=== PATIENT | female | born 1995 | race Caucasian/White ===

== ENCOUNTER 2022-08-17 07:30 | Outpatient (CLI) | payer OTHER, SELFPAY ==
[2022-08-17 07:56] LABS: Basophils Percent Auto 0.7 % (0.2-1.2); Eosinophils Absolute Auto 0.1 K/mm3 (0-0.3); Eosinophils Percent Auto 1.6 % (0-4.4); Hematocrit 39.8 % (37.0-47.0); Hemoglobin 13.3 g/dL (12.0-15.0); Immature Granulocyte Absolute 0.01 K/mm3 (0.00-0.031); Immature Granulocyte Percent A 0.2 % (0-0.5); Lymphocytes Absolute Auto 2.21 K/mm3 (0.9-3.2); Lymphocytes Percent Auto 39.9 % (18.3-44.2); Mean Corpuscular HGB Conc 33.4 g/dl (32-36); Mean Corpuscular Hemoglobin 30.2 pg (26-34); Mean Corpuscular Volume 90.2 fl (80-100); Mean Platelet Volume 9.4 fl (7.4-10.4); Monocytes Absolute Auto 0.4 K/mm3 (0.1-0.6); Monocytes Percent Auto 7.2 % (2.6-8.5); Neutrophils Absolute Auto 2.8 K/mm3 (1.3-6.7); Neutrophils Percent Auto 50.4 % (45.5-73.1); Platelet Count Result 179 k/mm3 (150-375); Red Blood Count 4.41 M/mm3 (4.2-5.4); Red Cell Distribution Width 12.1 % (11.5-14.5); White Blood Count 5.5 K/mm3 (4.5-10.0)
[2022-08-17 08:27] LABS: Cholesterol 163 mg/dL (0-200); HDL Direct 51 mg/dL; Triglycerides 70 mg/dL (<150)
[2022-08-17 08:38] LABS: LDL Cholesterol Direct 87 mg/dL
[2022-08-17 08:40] LABS: Beta HCG Quantitative < 2.39 mIU/ML
[2022-08-17 09:00] LABS: Vitamin D 25 Hydroxy 37.4 ng/mL
[2022-08-17 09:09] LABS: Hemoglobin A1C 4.8 % (<5.7)
[2022-08-17 09:30] LABS: Folic Acid 8.1 ng/mL (2.76->20)
== END 2022-08-17 07:31 | disposition home or self-care (01) ==
PROVIDERS: Visit Provider Obstetrics & Gynecology
DX: N92.0 Excessive and frequent menstruation with regular cycle (principal); Z83.3 Family history of diabetes mellitus; R53.83 Other fatigue
CPT/HCPCS: 36415; 80061; 82306; 82607; 82746; 83036; 84702; 85025

== ENCOUNTER 2022-12-29 07:03 | Outpatient (CLI) | payer OTHER, SELFPAY ==
[2023-01-01 15:26] LABS: Hematocrit 43.6 % (35.0-45.0); Hemoglobin 13.8 g/dL (11.7-15.5); MCH 29.9 pg (27.0-33.0); MCV 94.4 fL (80.0-100.0); RDW 12.2 % (11.0-15.0); Red Blood Cell Count 4.62 Mill/uL (3.80-5.10)
[2023-01-14 12:11] LABS: CF Result NEGATIVE (NEGATIVE); Ethnicity NG; SMA 2.0 RISK VARIANT NOT DETECTED
[2023-01-16 15:56] LABS: SMA Results Received Yes
== END 2022-12-29 07:04 | disposition home or self-care (01) ==
LOC: ANHLAB 07:05
PROVIDERS: Visit Provider Obstetrics & Gynecology
DX: Z13.79 Encounter for other screening for genetic and chromosomal anomalies (principal)
CPT/HCPCS: 36415; 81220; 81243; 81329; 83021

== ENCOUNTER 2023-12-21 08:02 | Outpatient (CLI) | payer OTHER, SELFPAY ==
[2023-12-21 08:39] LABS: Basophils Percent Auto 0.6 % (0.2-1.2); Eosinophils Absolute Auto 0.1 K/mm3 (0-0.3); Eosinophils Percent Auto 0.7 % (0-4.4); Hematocrit 37.8 % (37.0-47.0); Hemoglobin 13.1 g/dL (12.0-15.0); Immature Granulocyte Absolute 0.02 K/mm3 (0.00-0.031); Immature Granulocyte Percent A 0.3 % (0-0.5); Lymphocytes Absolute Auto 1.87 K/mm3 (0.9-3.2); Mean Corpuscular HGB Conc 34.7 g/dl (32-36); Mean Corpuscular Hemoglobin 30.4 pg (26-34); Mean Corpuscular Volume 87.7 fl (80-100); Monocytes Absolute Auto 0.5 K/mm3 (0.1-0.6); Monocytes Percent Auto 6.6 % (2.6-8.5); Neutrophils Absolute Auto 4.5 K/mm3 (1.3-6.7); Neutrophils Percent Auto 64.8 % (45.5-73.1); Platelet Count Result 171 k/mm3 (150-375); Red Blood Count 4.31 M/mm3 (4.2-5.4); Red Cell Distribution Width 11.6 % (11.5-14.5); White Blood Count 6.9 K/mm3 (4.5-10.0)
[2023-12-21 09:28] LABS: HIV 1/2 Ab P24 Ag Result Negative (Negative)
[2023-12-21 10:23] LABS: Hepatitis B Surface Antigen Negative (Negative); Rubella IgG Antibody 35.3 IU/ML
[2023-12-23 14:53] LABS: CMV IgG Antibody <0.60 U/mL; Varicella IgG Antibody 5.94 S/CO
== END 2023-12-21 08:03 | disposition home or self-care (01) ==
LOC: ANHLAB 08:07
PROVIDERS: Visit Provider Obstetrics & Gynecology
DX: N91.2 Amenorrhea, unspecified (principal)
CPT/HCPCS: 36415; 84702; 85025; 86644; 86703; 86747; 86762; 86787; 86850; 86900; 86901; 87086; 87340; G0432

== ENCOUNTER 2023-12-23 15:57 | Outpatient (CLI) | payer OTHER, SELFPAY | END 2023-12-23 15:58 | disposition home or self-care (01) | LOC: ANHLAB 15:58 | PROVIDERS: Visit Provider Obstetrics & Gynecology | DX: N39.0 Urinary tract infection, site not specified (principal) | CPT/HCPCS: 87086 ==

== ENCOUNTER 2024-01-16 08:53 | Outpatient (CLI) | payer OTHER, SELFPAY ==
--- NOTE | ~2024-01-16 | US_ITS ---
EXAMINATION: US OB <= 14 weeks fetus DATE: 01/16/2024 09:35 INDICATION: Missed . TECHNIQUE: Real-time transabdominal pelvic ultrasound was performed. COMPARISON: Ultrasound 12/25/2023 FINDINGS: The uterus measures 10.2 x 6.5 x 7.7 cm. There is an intrauterine gestational sac. The crown ru mp length measures 3.4 cm, which correlates with an estimated gestational age of 10 weeks and 2 days. heart motion is not identified by M-mode Doppler. The ovaries are not visualized. There is phy siologic free fluid in the pelvis. IMPRESSION: 1. demise. Reviewed, dictated and finalized at location A. ONAL EDUCATION COORDINATOR IMPRESSION: 1. demise.
== END 2024-01-16 08:54 | disposition home or self-care (01) ==
PROVIDERS: Visit Provider Obstetrics & Gynecology
DX: O02.1 Missed abortion (principal)
CPT/HCPCS: 76801

== ENCOUNTER 2024-01-17 01:32 | Day surgery (SDC) | payer OTHER, SELFPAY ==
--- NOTE | 2024-01-16 13:29 | P.HP_ITS ---
H&P: HPI History of Present Illness Date/Time: 01/16/24 13:29 Chief Complaint: MAB Narrative: Xiomara is a 28yo , who presents for suction D&C due for demise. She presented to her routine care visit on 01/15/24. She did report a sudden resolution of her severe nausea and vomiting. She denies any pelvic pain or bleeding. heart tones were not heard on bedside doppler. Bedside US was performed and no movement or heart tones were noted. Formal OB US on 01/16/24 confirmed demise. The fetus was measuring 10w 2d (should have been 13w today). She denies pain/bleeding. No fever, chills. She is understandably very upset. Review of Systems Constitutional: Constitutional: Denies chills, Denies fever(s) and Denies headache(s) Eyes: Eyes: Denies change in vision ENT: Denies dizziness and Denies headache(s) Cardiovascular: Cardiovascular: Denies chest pain and Denies dyspnea Respiratory: Respiratory: Denies cough and Denies dyspnea Gastrointestinal: Gastrointestinal: Denies abdominal pain and Denies change in stool character Genitourinary: Genitourinary: Denies abnormal vaginal bleeding, Denies pelvic pain, Denies vaginal discharge, Denies vaginal odor and Denies vaginal pruritus Neurologic: Denies dizziness and Denies headache(s) Psychiatric: Psychiatric: Denies anxiety and Denies depression [facility] Past Medical History Medical History Mar 30 2021 Surgical History Surgical History History of gynecological procedure Nexplanon insertion removed 9 months later History of surgery on arm Family History Family History Grandparent Pancreatic cancer maternal Grandmother and maternal grandfather Father Hypertension Mother Diabetes mellitus Depression Social History Social History (Updated 01/15/24 @ 15:54 by Khris Mccollum MA) Smoking status: Never smoker Second hand tobacco smoke exposure: Yes Alcohol intake: former Alcohol use details: socially 15 per month Substance use: never Substance use type: does not use Do You Feel Safe in your Home?: Yes Lack of Transportation: No Lack of Food: Never True Current Housing: I Have Housing Concerned About Future Housing: No Difficulty Paying Gas/Electric Bills: No Difficulty Paying for Meds: No Currently Unemployed: No Education: Master's Degree or Higher Difficulty w/ Childcare or Family Care: No Living arrangements: with family Additional living arrangements comments: 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 Gender identity (if verbalized by the patient): Female Sexual Orientation (if Verbalized by the Patient): Straight or Heterosexual Meds Home Medications and Allergies Home Medications Medication Instructions Recorded Confirmed Type vits no.126-ferrous fum tablet PO 01/15/24 01/15/24 History 28 mg iron-folic acid 800 mcg tablet (Classic ) Allergies Allergy/AdvReac Type Severity Reaction Status Date / Time No Known Allergies Allergy Verified 01/15/24 15:47 Exam Const: General: cooperative, healthy appearing, comfortable and no acute distress Orientation/consciousness: patient oriented x3 Resp: Effort & Inspection: normal respiratory effort Cardio: Rate: regular rate GI: Inspection: normal to inspection GI Palp: No abdominal tenderness and Yes Soft to palpation : Other: deferred to OR Skin: General skin exam: normal color Neuro: General: patient oriented x3 Extrem: General: normal to inspection Psych: Appearance: grossly normal Affect: Sad affect present Attitude: cooperative Assessment and Plan Assessment and plan (1) Missed : Code(s): O02.1 - Missed Status: Acute Plan - MAB confirmed via official US on 01/16/24; showing fetus of 10w 2d without heart tones - Pt counseled on expectant vs medical vs surgical options and agrees to proceed with surgical options - Risks and benefits discussed in detail
[2024-01-16 13:58] VITALS: BMI 23.3
--- NOTE | 2024-01-16 13:58 | PC.NURSE ---
Report to the Outpatient Waiting Room, entrance under the green pavilion located off [facility], at time _1215_ on date _[id number]_. Planned Procedure Time: _215pm_.? Time changes happen often and if your time is changed the preop area will call you the afternoon before. - You and your visitor will be asked to self-screen and do not enter if you have any COVID symptoms. Please call surgeon if you need to reschedule. - A mask is optional within the hospital at this time. Patients may have clear liquids (water, carbonated beverages, clear teas, apple juice) until 3 hours prior to surgery with a maximum of 20 ounces. - No food from midnight until time of surgery and no smoking Take only the following medications with a SIP of water on the morning of surgery: ___None DO NOT STOP ANY OF YOUR OTHER PRESCRIPTION MEDICATIONS PRIOR TO SURGERY EXCEPT THE FOLLOWING Medications to discontinue per physician __Vitamin Date to take last dose___Stop now.___ Please no make-up, nail omani, hairspray, perfume, deodorant, or body powder the day of surgery.? No jewelry (including any body piercings) or valuables the day of surgery, leave them at home.? Please take a shower or bath the night before, or the morning of, surgery with an antibacterial soap.? Wear comfortable, loose fitting clothing.? - Jewelry must be removed prior to entering the operating room.? Rings and piercings that are not removed may be cut off. - The hospital will not accept responsibility for valuables.? - Please leave all valuables, including medications, at home the day of surgery. If you are going home after surgery, a licensed driver examiner must drive you home.? - NO public transportation without another adult if you receive anesthesia. - We recommend that an adult stay with you for 24 hours following discharge. - We also recommend that you do not drive, make important decision, drink alcoholic beverages, or take any drugs that were not prescribed by your health care provider for at least 24 hours after your discharge time. Follow any additional instructions given to you from your surgeon. Telephone instructions given to __Alex__and asked if any additional questions and then verbalized understanding. Patient advised to call surgeon office or pre surgery nurse liaison [phone] if any additional questions.
--- NOTE | 2024-01-17 08:04 | WPDHPUPDATE1 ---
History and Physical Update Update Date/Time: 01/17/24 08:04 History and Physical has been reviewed, including an updated exam of the patient. There are NO changes in the patient's condition. Risks, benefits, and alternatives have been discussed and questions answered. Patient agrees to proceed with suction D&C. Will give azithromycin 1g PO orally 1 hour before procedure. .
[2024-01-17 12:27] VITALS: BP 104/70; PULSE 76; RESP 18; TEMP 36.3; O2SAT 100
[2024-01-17] MEDS: LACTATED RINGERS 1,000 ML 30 ML IV CONT (12:45)
--- NOTE | 2024-01-17 13:02 | WPDANESEPPF ---
Anes - Initial Pre Proc Eval Procedure: Operation Date: 01/17/24 14:15 Proposed Procedures p Suction Dilation and Curettage - Anushka Bains MD Date/Time: 01/17/24 13:02 Surgeon: Anushka Bains MD Pre Op Diagnosis: missed ab Patient Data Age: 28 Gender: F Height: 1.65 m Weight: 63.6 kg Allergies Allergy/AdvReac Type Severity Reaction Status Date / Time No Known Allergies Allergy Verified 01/17/24 12:53 Home Medications Medication Instructions Recorded Confirmed Type vits no.126-ferrous fum 1 tablet PO DAILY 01/15/24 01/17/24 History 28 mg iron-folic acid 800 mcg tablet (Classic ) Patient hx anesthesia problems: none Family hx anesthesia problems: none Results Review: All pre-operative results and documents have been reviewed as part of the pre-operative evaluation. [facility] Past Medical History Medical History Mar 30 2021 Surgical History Surgical History History of gynecological procedure Nexplanon insertion removed 9 months later History of surgery on arm Family History Family History Grandparent Pancreatic cancer maternal Grandmother and maternal grandfather Father Hypertension Mother Diabetes mellitus Depression Social History Social History (Updated 01/15/24 @ 15:54 by Khris Mccollum MA) Smoking status: Never smoker Second hand tobacco smoke exposure: Yes Alcohol intake: former Alcohol use details: socially 15 per month Substance use: never Substance use type: does not use Do You Feel Safe in your Home?: Yes Lack of Transportation: No Lack of Food: Never True Current Housing: I Have Housing Concerned About Future Housing: No Difficulty Paying Gas/Electric Bills: No Difficulty Paying for Meds: No Currently Unemployed: No Education: Master's Degree or Higher Difficulty w/ Childcare or Family Care: No Living arrangements: with family Additional living arrangements comments: 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 Gender identity (if verbalized by the patient): Female Sexual Orientation (if Verbalized by the Patient): Straight or Heterosexual Spiritual care concerns: No Anes - Eval Final PreProcedure Day of Procedure 01/17/24 13:02 Patient weight: normal Heart: regular rate and rhythm Lungs: clear to auscultation and normal air movement Airway: Mallampati scale class II Neurological: alert and oriented Last oral intake: >/= 8 hours ASA classification: I Emergent: no Anesthetic plan: proceed Anesthesia type and monitoring: general GIVS and standard monitoring Results Review: All pre-operative results and documents have been reviewed as part of the pre-operative evaluation. Informed Consent: The patient's anesthetic plan and its attendant risks and benefits were discussed with the patient/family/POA. Questions were solicited and answers provided to the satisfaction of the patient/family/POA.
[2024-01-17] MEDS: AZITHROMYCIN 250 MG TABLET 1000 MG PO (13:30)
[2024-01-17] MEDS: ACETAMINOPHEN 500 MG TABLET 1000 MG PO (13:30)
[2024-01-17 15:00] VITALS: BP 127/74; PULSE 94; RESP 15; O2SAT 97
--- NOTE | 2024-01-17 15:01 | W.PM.PROC2 ---
Procedure Note - Detailed Date of Procedure 01/17/24 Pre-op Diagnosis missed ab Post-op Diagnosis Same Procedure Performed Suction D&C Surgeon Anushka Bains MD Anesthesia MAC Findings Cervix closed. Description of Procedure Xiomara was taken to the operating room where she was placed under sedation without complications. She was then prepped and draped in the usual sterile fashion in the dorsal lithotomy position with her legs in low Renaldo stirrups. A time-out was performed and she received azithromycin 1000mg pre-operatively. A bivalve speculum was placed within the vagina where the cervix was easily identified. The anterior lip of the cervix was grasped with a single-tooth tenaculum and the uterus was gently sounded. The cervix was then serially dilated. A 12mm suction curettage was then gently placed within the uterine cavity until the fundus was reached. The suction was then applied and two passes were made and a significant amount of tissue was removed with each pass. A bedside US was performed and additional products were noted. I then switched to a 10mm suction curettage and 2 additional passes were made. A bedside US was then performed again and a small amount was still remaining, so two additional passes were made with an 8mm suction curettage and no additional products were noted and a thin stripe was seen. The cervix was noted to have clamped down with minimal bleeding. All instruments were removed from the vagina and I performed a bimanual massage. Good uterine tone and good hemostasis was then noted. Sponge, lap, instrument, and needle counts were correct at the end of the procedure. Patient was awoken from anesthesia and taken to recovery with plans of same-day discharge home. The products of conception will be sent for genetic testing, per patient request. Estimated Blood Loss 150 (including products of conception) IV Fluids 1,000 Pathology Yes (products of conception) Complications None Condition Stable Disposition Same day [facility] Billing Surgery - Charge Forward: Surgery Billing
[2024-01-17 15:30] VITALS: BP 112/54; PULSE 66; RESP 15
[2024-01-17 15:46] VITALS: BP 120/65; PULSE 71; RESP 16
== END 2024-01-17 15:50 | disposition home or self-care (01) ==
PROVIDERS: Visit Provider Obstetrics & Gynecology
PROC: (CPT 59820; principal; 2024-01-17 14:15)
DX: O02.1 Missed abortion (principal)
CPT/HCPCS: 59820; 88264; 88305; A9270; J1100; J2003; J2250; J2405; J2704; J3010; J7120

== ENCOUNTER 2024-05-07 14:59 | Outpatient (CLI) | payer OTHER, SELFPAY ==
[2024-05-07 15:29] LABS: Basophils Percent Auto 0.3 % (0.2-1.2); Eosinophils Percent Auto 0.4 % (0-4.4); Hemoglobin 13.3 g/dL (12.0-15.0); Immature Granulocyte Absolute 0.03 K/mm3 (0.00-0.031); Immature Granulocyte Percent A 0.3 % (0-0.5); Lymphocytes Absolute Auto 1.96 K/mm3 (0.9-3.2); Lymphocytes Percent Auto 20.1 % (18.3-44.2); Mean Corpuscular Hemoglobin 29.7 pg (26-34); Mean Corpuscular Volume 84.8 fl (80-100); Mean Platelet Volume 9.1 fl (7.4-10.4); Monocytes Absolute Auto 0.5 K/mm3 (0.1-0.6); Monocytes Percent Auto 5.3 % (2.6-8.5); Neutrophils Absolute Auto 7.2 K/mm3 (1.3-6.7); Neutrophils Percent Auto 73.6 % (45.5-73.1); Platelet Count Result 191 k/mm3 (150-375); Red Blood Count 4.48 M/mm3 (4.2-5.4); Red Cell Distribution Width 11.3 % (11.5-14.5); White Blood Count 9.8 K/mm3 (4.5-10.0)
[2024-05-07 18:33] LABS: Syphilis IgG/IgM Antibody Negative (Negative)
[2024-05-07 18:37] LABS: Hepatitis B Surface Antigen Negative (Negative)
[2024-05-07 18:40] LABS: HIV 1/2 Ab P24 Ag Result Negative (Negative)
[2024-05-08 17:09] LABS: CMV IgG Antibody <0.60 U/mL; Varicella IgG Antibody 5.59 S/CO
== END 2024-05-07 15:00 | disposition home or self-care (01) ==
LOC: ANHLAB 15:00
PROVIDERS: Visit Provider Obstetrics & Gynecology
DX: N91.2 Amenorrhea, unspecified (principal)
CPT/HCPCS: 36415; 84702; 85025; 86593; 86644; 86703; 86762; 86787; 86850; 86900; 86901; 87086; 87340; G0432

== ENCOUNTER 2024-09-24 07:16 | Outpatient (CLI) | payer OTHER, SELFPAY ==
--- OUTSIDE RECORDS SUMMARY | 2024-09-24 07:20 | XMS_ITS | Encounter Summary ---
Author Organization [facility] Address [address] [place] [address] Care Team Providers Care Fish And Wildlife Warden Name Role Phone Pcp, Kennedy Solares Im-Fm Primary Care Provider Unavailable Encounter Details Date Type Department Care Team (Late st Contact Info) Description 06/26/[address] 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 Gender Identity Not on file Sexual Orientation Not on file documented as of this encounter Plan of Treatment Not on file documented as of this encounter Procedures Procedure Name Priority Date/Time Associated Diagnosis Comments DERMATOPATHOLOGY Routine 06/26/2023 12:0 0 AM CDT Neoplasm of uncertain behavior of skin documented in this encounter Results * DERMATOPATHOLOGY (06/26/2023 12:00 AM CDT) Case Report Dermatopathology Report Case: [id number] Authorizing Provider: Radha Baxter MD Collected: 06/26/2023 12:00 AM Ordering Location: [facility] - Received: 06/28/2023 07:58 AM DermPath Lab Pathologist: Annie Dobbins MD Specimen: Skin, right anterior proximal upper arm 3:28 PM CDT DERMATOPATHOLOGY LABORATORY Final Diagnosis Specimen A. SKIN, right anterior proximal upper arm: COMPOUND MELANOCYTIC PROLIFERATION; PRESENT AT MARGIN (D48.5) (see microscopic description and comment) 3:28 PM CDT DERMATOPATHOLOGY LABORATORY at 1528 CDT Clinical History R/o Atypical Melanocytic Process 3:28 PM CDT DERMATOPATHOLOGY LABORATORY Gross Description Specimen A: Received is one formalin filled container labeled with the patient's name and designated right anterior proximal upper arm. The specimen consists of a shave biopsy measuring 4x3x1 mm. Jar 0. 3:28 PM CDT DERMATOPATHOLOGY LABORATORY Microscopic Description Specimen A. SKIN, right anterior proximal upper arm: Sections show a compound melanocytic proliferation. There is a lentiginous proliferation of melanocytes between irregular nests. Scattered melanocytes show evidence of upward migration within the epidermis. In the dermis there are irregular nests of melanocytes. A rare mitosis is seen. This lesion is present at the margin of the specimen. The hematoxylin and eosin stain is reviewed; immunohistochemical stains are performed to further assess the histologic features. Lesional cells are highlighted by MART-1/MelanA. P16 is positive in lesional cells. PRAME is not overexpressed in lesional cells. ALK does not show significant staining in lesional cells. COMMENT: Because this lesion is present at the margin of the specimen, symmetry and circumscription can not be evaluated. Therefore, a complete but conservative re-excision is recommended to evaluate this lesion in its entirety. This case was also reviewed by Dr. Teri Dobbs who agrees. 3:28 PM CDT DERMATOPATHOLOGY LABORATORY Disclaimer An external and internal positive and negative controls are appropriate for the histochemical, immunohistochemical and immunofluorescence stain(s) in this case (if any), except where stated explicitly. The performance characteristics of the stain(s) cited in this report were developed and its performance characteristic determined by the Dermatopathology Laboratory at [facility], directed by Dr. Paige Dobbs. These tests need not be, and therefore are not, approved by the [place] Food and Drug Administration. The tests are used for clinical purposes. Billing Codes Specimen Charges Stain Charges 44412 1 32492 [id number] 29940 10348 1 1 1 1 4 3:28 PM CDT DERMATOPATHOLOGY LABORATORY Embedded Images 4 3:28 PM CDT DERMATOPATHOLOGY LABORATORY Pathology/Cytolog y TISSUE SPECIMEN FROM SKIN / Unknown 06/26/2023 06/28/2023 7:58 AM CDT Radha Baxter MD LAB - PATHOLOGY/CYTOLOGY ORDERAB LES Final Result DERMATOPATHOLOGY LABORATORY [facility] - Department of Dermatology [facility] [address] [place] [address], [address] [phone] documented in this encounter Visit Diagnoses Diagnosis Neoplasm of uncertain behavior of skin documented in this encounter Care Teams Fish And Wildlife Warden Relationship Specialty Start Date End Date PcpKennedy-Fm PCP - General 10/05/22 documented as of this encounter
--- OUTSIDE RECORDS SUMMARY | 2024-09-24 07:20 | XMS_ITS | Clinical Summary ---
Author Organization [facility] Address [address] [place] [address] Care Team Providers Care Literacy Teacher Name Role Phone No, Physician Primary Care Provider [phone] Anushka Bains MD Unavailable [phone] Allergies No known active allergies Medications No known medications Active Problems Comments Yes No known active problems Surgical History Surgery Date Site/Laterality Comments DILATION AND CURETTAGE OF UTERUS Family History Medical History Relation Name Comments Hypertension Father Diabetes Mother Heart disease Other Pancreatic cancer Other Relation Name Status Comments Father Mother Other Social History Tobacco Use Types Packs/Day Years Used Date Smoking Tobacco: Never Smokeless Tobacco: Never Tobacco Cessation:Counseling Given: Not Answered AUDIT-C Answer Date Recorded Q1: How often do you have a drink containing alcohol? Never 02/14/2024 Q2: How many drinks containi ng alcohol do you have on a typical day when you are drinking? Patient does not drink Q3: How often do you have si x or more drinks on one occasion? Never 02/14/2024 Comments Yes Sex and Gender Information Value Date Recorded Sex Assigned at Not on file Legal Sex Female 11:39 PM ORTHODONTIST Gender Identity Not on file Sexual Orientation Not on file Obstetrics History Para Term AB IAB SAB Ectopic Multiple Livin g Live Births 2 1 1 Date Outcome GA Total Labor Labor/2nd/3rd Weight Sex Type Anes PTL Neida A1 A5 Name Clin 4 SAB 13w 0d D&C Demise Current Comments Preg# 1 - 13 week - Trisomy 21 Last Filed Vital Signs Vital Sign Reading Time Taken Comments Blood Pressure 127/78 05/04/2024 12:34 PM ORTHODONTIST Pulse 82 05/04/2024 12:34 PM ORTHODONTIST Temperature - - Respiratory Rate - - Oxygen Saturation 98% 07/25/2023 11: 06 AM CDT Inhaled Oxygen Concentration - - Weight 65.7 kg (144 lb 12.8 oz) 025 12:34 PM ORTHODONTIST Height 167.6 cm (5' 6) 05/04/2024 12:3 4 PM ORTHODONTIST Body Mass Index 23.37 05/04/2024 12:34 PM ORTHODONTIST Plan of Treatment Health Maintenance Due Date Last Done Comments Cervical Cancer Screening 1993 Depression Screening 1993 Hepatitis C Screening 1993 Regular Well Visit/Exam 18-64 11/09/2011 DTaP/Tdap/Td Vaccine (7 - Td or Tdap) 04/26/2021 04/26/2011, 12/07/2005, 07/27/1998, Additional history exists Covid-19 Vaccine ( season) 2023 04/21/2021 Influenza Vaccine (#1) 2024 12/16/2020 HPV Vaccines Completed 06/24/2007, 02/08, 12/05/2006 Varicella Vaccines Completed 08/28/2017, 07/24/2017 Hepatitis B Screening Completed 09/19/2017 , 08/16/1994, 01/18/1994, Additional history exists Pneumococcal vaccine <65 Aged Out No longer eligible based on patient's age to complete this topic Insurance [facility] CHO[facility] PLUS [facility] CHO[facility] PLUS Care Teams Literacy Teacher Relationship Specialty Start Date End Date No, Physician PCP - General 07/09/23 Anushka Bains MD [address] [place] [address] Obstetrics and Gynecology 02/10/24
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
--- OUTSIDE RECORDS SUMMARY | 2024-09-24 07:20 | XMS_ITS | Referral Summary ---
Author Organization [facility] Address [address] [place] [address] Care Team Providers Care Shopper Marketing Manager Name Role Phone No, Physician Primary Care Provider [phone] Anushka Bains MD Unavailable [phone] Allergies No known active allergies Medications No known medications Active Problems Comments Yes No known active problems Social History Tobacco Use Types Packs/Day Years [...] on file Legal Sex Female 11:39 PM PARALEGAL LEGAL SECRETARY Gender Identity Not on file Sexual Orientation Not on file Last Filed Vital Signs Vital Sign Reading Time Taken Comments Blood Pressure 127/78 05/04/2024 12:34 PM PARALEGAL LEGAL SECRETARY Pulse 82 05/04/2024 12:34 PM PARALEGAL LEGAL SECRETARY Temperature - - Respiratory Rate - - Oxygen Saturation 98% 07/25/2023 11: 06 AM CDT Inhaled Oxygen Concentration - - Weight 65.7 kg (144 lb 12.8 oz) 025 12:34 PM PARALEGAL LEGAL SECRETARY Height 167.6 cm (5' 6) 05/04/2024 12:3 4 PM PARALEGAL LEGAL SECRETARY Body Mass Index 23.37 05/04/2024 12:34 PM PARALEGAL LEGAL SECRETARY Plan of Treatment Not on file Insurance [facility] CHO[facility] H[facility]/PPO Address: [address] [place] [address] [facility] CHO[facility] H[facility]/PPO Address: [place] [phone] Care Teams Shopper Marketing Manager Relationship Specialty Start Date End Date No, Physician PCP - General 07/09/23 Ansuhka Bains MD [address] [place] [address] Obstetrics and Gynecology 02/10/24
[2024-09-24 08:40] LABS: Hematocrit 32.5 % (37.0-47.0); Hemoglobin 10.7 g/dL (12.0-15.0); Immature Granulocyte Percent A 1.5 % (0-0.5); Lymphocytes Absolute Auto 1.51 K/mm3 (0.9-3.2); Mean Corpuscular HGB Conc 32.9 g/dl (32-36); Mean Corpuscular Hemoglobin 30.2 pg (26-34); Mean Corpuscular Volume 91.8 fl (80-100); Nucleated Red Blood Cells Absolute Auto 0.000 K/mm3 (0.0-0.012); Nucleated Red Blood Cells Perc 0.0 % (0.0-0.2); Platelet Count Result 128 k/mm3 (150-375); Red Blood Count 3.54 M/mm3 (4.2-5.4); White Blood Count 10.1 K/mm3 (4.5-10.0)
[2024-09-24 09:02] LABS: Glucose 1 Hour PP 50gm Dose 182 mg/dL
[2024-09-24 09:41] LABS: Syphilis IgG/IgM Antibody Non-Reactive (Nonreactive)
[2024-09-24 09:54] LABS: HIV 1/2 Ab P24 Ag Result Negative (Negative)
== END 2024-09-24 07:17 | disposition home or self-care (01) ==
LOC: ANHLAB 07:17
PROVIDERS: Visit Provider Obstetrics & Gynecology
DX: Z34.90 Encounter for supervision of normal pregnancy, unspecified, unspecified trimester (principal)
CPT/HCPCS: 36415; 82947; 85025; 86593; 86703; G0432

== ENCOUNTER 2024-09-25 07:00 | Outpatient (CLI) | payer OTHER, SELFPAY ==
--- OUTSIDE RECORDS SUMMARY | 2024-09-25 07:03 | XMS_ITS | Encounter Summary ---
Author Organization [facility] Address [address] [address] Care Team Providers Care Veterinary Virus Serum Inspector Name Role Phone Pcp, Kennedy Solares Im-Fm Primary Care Provider Unavailable Encounter Details Date Type Department Care Team (Late st Contact Info) Description 06/26/2023 Lab Requisition [facility] - DermPath Lab [address] [place] [address] Radha Baxter MD [address] [place], [place] [id number] Neoplasm of uncertain behavior of skin Social [...] on file Legal Sex Female 5:36 AM E BUSINESS SPECIALIST Gender Identity Not on file Sexual Orientation Not on file documented as of this encounter Plan of Treatment Not on file documented as of this encounter Procedures Procedure Name Priority Date/Time Associated Diagnosis Comments DERMATOPATHOLOGY Routine 06/26/2023 12:0 0 AM CDT Neoplasm of uncertain behavior of skin documented in this encounter Results * DERMATOPATHOLOGY (06/26/2023 12:00 AM CDT) Case Report Dermatopathology Report Case: [id number] Authorizing Provider: Radha Baxter MD Collected: 06/26/2023 12:00 AM Ordering Location: [facility] - Received: 06/28/2023 07:58 AM DermPath [...] characteristic determined by the Dermatopathology Laboratory at [facility], directed by Dr. Paige Dobbs. These tests need not be, and therefore are not, approved by the [place] Food and Drug Administration. The tests are used for clinical purposes. Billing Codes Specimen Charges Stain Charges 13718 1 [id number] 1 1 1 1 4 3:28 PM CDT DERMATOPATHOLOGY LABORATORY Embedded Images 4 3:28 PM CDT DERMATOPATHOLOGY LABORATORY Pathology/Cytolog y TISSUE SPECIMEN FROM SKIN / Unknown 06/26/2023 06/28/2023 7:58 AM CDT Radha Baxter MD LAB - PATHOLOGY/CYTOLOGY ORDERAB LES Final Result DERMATOPATHOLOGY LABORATORY [facility] - Department of Dermatology [facility] Medicine [address] [place] [address], [address] [phone] documented in this encounter Visit Diagnoses Diagnosis Neoplasm of uncertain behavior of skin documented in this encounter Care Teams Veterinary Virus Serum Inspector Relationship Specialty Start Date End Date PcpKennedy-Fm PCP - General 10/05/22 documented as of this encounter
--- OUTSIDE RECORDS SUMMARY | 2024-09-25 07:03 | XMS_ITS | Referral Summary ---
Author Organization [facility] Address [address] [place] [address] Care Team Providers Care Drain Tiler Name Role Phone No, Physician Primary Care Provider [phone] Anushka Bains MD Unavailable [phone] Allergies No known active allergies Medications No [...] on file Legal Sex Female 11:39 PM REPAIRER WOOD FURNITURE Gender Identity Not on file Sexual Orientation Not on file Last Filed Vital Signs Vital Sign Reading Time Taken Comments Blood Pressure 127/78 05/04/2024 12:34 PM REPAIRER WOOD FURNITURE Pulse 82 05/04/2024 12:34 PM REPAIRER WOOD FURNITURE Temperature - - Respiratory Rate - - Oxygen Saturation 98% 07/25/2023 11: 06 AM CDT Inhaled Oxygen Concentration - - Weight 65.7 kg (144 lb 12.8 oz) 025 12:34 PM REPAIRER WOOD FURNITURE Height 167.6 cm (5' 6) 05/04/2024 12:3 4 PM REPAIRER WOOD FURNITURE Body Mass Index 23.37 05/04/2024 12:34 PM REPAIRER WOOD FURNITURE Plan of Treatment Not on file Insurance [facility]/PPO Address: [address] [place] [address] [facility] H[facility]/PPO Address: [place] [phone] Care Teams Drain Tiler Relationship Specialty Start Date End Date No, Physician PCP - General 07/09/23 Anushka Bains MD [address] [place] [address] Obstetrics and Gynecology 02/10/24
--- OUTSIDE RECORDS SUMMARY | 2024-09-25 07:03 | XMS_ITS | Clinical Summary ---
Author Organization [facility] Address [address] [place] [address] Care Team Providers Care Cap Sizer Name Role Phone PcpKennedy Im-Fm Primary Care Provider Unavailable Source Comments [facility],non-owned Affiliates and Associated Physician Practices is amultiple site organization consisting of ambulatory clinics and hospital sitesin [place], [place], [place] and [place]. This disclosure is being madepursuant to the Care Everywhere program and may not contain all information available regarding this patient. Last updated 17.[employer] Allergies No known active allergies Medications * [...] on file Legal Sex Female 5:36 AM CONTACT LENS LATHE OPERATOR Gender Identity Not on file Sexual Orientation Not on file Last Filed Vital Signs Vital Sign Reading Time Taken Comments Blood Pressure 106/66 03/29/2021 8:22 AM CONTACT LENS LATHE OPERATOR Pulse 69 03/29/2021 8:22 AM CONTACT LENS LATHE OPERATOR Temperature 37.3 C (99.1 F) 03/29/2021 8:22 AM CONTACT LENS LATHE OPERATOR Respiratory Rate 18 03/29/2021 8:22 AM CONTACT LENS LATHE OPERATOR Oxygen Saturation 100% 03/29/2021 8:22 AM CONTACT LENS LATHE OPERATOR Inhaled Oxygen Concentration - - Weight 58.1 kg (128 lb) 03/29/2021 8:22 AM CONTACT LENS LATHE OPERATOR Height 165.1 cm (5' 5) 03/29/2021 8:22 AM CONTACT LENS LATHE OPERATOR Body Mass Index 21.3 03/29/2021 8:22 AM CONTACT LENS LATHE OPERATOR Plan of Treatment Health Maintenance Due Date [...] patient's age to complete this topic Insurance [facility] SELF PAY NO INSURANCE [facility] Care Teams Cap Sizer Relationship Specialty Start Date End Date Kennedy Dejesus Im-Fm PCP - General 10/05/22
--- OUTSIDE RECORDS SUMMARY | 2024-09-25 07:03 | XMS_ITS | Clinical Summary ---
Author Organization [facility] Address [address] [place] [address] Care Team Providers Care Electrical Maintenance Engineer Name Role Phone No, Physician Primary Care Provider [phone] Anushka Bains MD Unavailable [phone] Allergies No known active allergies Medications No [...] on file Legal Sex Female 11:39 PM TAPPET ADJUSTER Gender Identity Not on file Sexual Orientation [...] Comments Blood Pressure 127/78 05/04/2024 12:34 PM TAPPET ADJUSTER Pulse 82 05/04/2024 12:34 PM TAPPET ADJUSTER Temperature - - Respiratory Rate - - Oxygen Saturation 98% 07/25/2023 11: 06 AM CDT Inhaled Oxygen Concentration - - Weight 65.7 kg (144 lb 12.8 oz) 025 12:34 PM TAPPET ADJUSTER Height 167.6 cm (5' 6) 05/04/2024 12:3 4 PM TAPPET ADJUSTER Body Mass Index 23.37 05/04/2024 12:34 PM TAPPET ADJUSTER Plan of Treatment Health Maintenance Due Date [...] patient's age to complete this topic Insurance [facility] CHOICE [facility]US [facility]/PPO Address: [facility] [address] [place] [address] [facility] H[facility]/PPO Address: [place] [address] Care Teams Electrical Maintenance Engineer Relationship Specialty Start Date End Date No, Physician PCP - General 07/09/23 Anushka Bains MD [address] [place] [address] Obstetrics and Gynecology 02/10/24
[2024-09-25 08:12] LABS: Glucose Fasting Gestational 91 mg/dL (>/=95)
[2024-09-25 10:31] LABS: Glucose 1 Hour Gest 194 mg/dL (>/=180)
[2024-09-25 11:01] LABS: Glucose 2 Hour Gest 199 mg/dL (>/= 155)
[2024-09-25 11:45] LABS: Glucose 3 Hour Gest 149 mg/dL (>/=140)
== END 2024-09-25 07:01 | disposition home or self-care (01) ==
LOC: ANHLAB 07:01
PROVIDERS: Visit Provider Obstetrics & Gynecology
DX: O99.810 Abnormal glucose complicating pregnancy (principal)
CPT/HCPCS: 36415; 82951; 82952

== ENCOUNTER 2024-12-05 08:21 | Outpatient (RCR) | payer OTHER, SELFPAY ==
[2024-11-11 17:57] VITALS: BP 124/63; PULSE 82
[2024-11-14 08:48] VITALS: BP 113/69; PULSE 79
[2024-11-20 16:22] VITALS: BP 118/76; PULSE 82
[2024-11-24 16:02] VITALS: BP 111/67; PULSE 78
[2024-11-27 16:47] VITALS: BP 113/65; PULSE 77
[2024-12-02 17:02] VITALS: BP 136/79; PULSE 85
--- NOTE | ~2024-12-05 | US_ITS ---
EXAMINATION: US OB limited w BPP DATE: 11/11/2024 17:44 INDICATION: Maternal gestational diabetes during third trimester TECHNIQUE: Real-time pelvic ultrasound was performed. The interpreting radiologist was not present for the study. COMPARISON: None. FINDINGS: There is a single living fetus in vertex presentation. The placenta is posterior and not low-lying. heart rate is 129 beats per minute (bpm). Amniotic fluid index of 9.2 cm which is normal. (5th%-95%: 8.1-24.8 cm at 34 weeks estimated gestational age) Biophysical profile performed by the technologist: breathing (30 sec sustained breathing in 30 minutes): 2 out of 2 movement (3 gross body movements in 30 minutes): 2 out of 2 tone (one episode of raapqmt-sfvygeiuz-wmzzguy limb movement): 2 out of 2 Amniotic fluid pocket (2 cm): 2 out of 2 Total score: 8 out of 8 IMPRESSION: 1. Single living fetus in vertex presentation with heart rate of 129 bpm. 2. Biophysical profile 8 out of 8. 3. Normal amniotic fluid index of 9.2 cm. Reviewed, dictated and finalized at location A.
--- NOTE | ~2024-12-05 | US_ITS ---
EXAMINATION: US OB BPP wo non-stress DATE: 11/24/2024 16:28 INDICATION: Gestational diabetes. Third trimester. TECHNIQUE: Real-time pelvic ultrasound was performed. COMPARISON: Ultrasound 11/11/2024 FINDINGS: There is a single living fetus in vertex presentation. The placenta is on the left. heart rate is 143 beats per minute (bpm). Biophysical profile performed by the technologist: breathing (30 sec sustained breathing in 30 minutes): 2 out of 2 movement (3 gross body movements in 30 minutes): 2 out of 2 tone (one episode of krnaoee-estiwpgrw-xrpeunh limb movement): 2 out of 2 Amniotic fluid pocket (2 cm): 2 out of 2 Total score: 8 out of 8 IMPRESSION: 1. Single living fetus in vertex presentation. 2. Biophysical profile 8 out of 8. Reviewed, dictated and finalized at location E.
--- NOTE | ~2024-12-05 | US_ITS ---
EXAMINATION: US OB BPP wo non-stress DATE: 12/02/2024 17:05 CDT INDICATION: Gestational diabetes TECHNIQUE: Real-time transabdominal obstetric ultrasound. FINDINGS: Ultrasound dated 11/24/2024 There is a single living fetus in vertex presentation. The placenta is posterior/maternal right without placenta previa. cardiac activity and movement is noted with a heart rate of 132 beats per minute. Biophysical profile: breathin of 2 movement: 2 of 2 tone: 2 of 2 Amniotic flud pocket: 2 of 2 Total score: 8 of 8 IMPRESSION: 1. Single living intrauterine in vertex presentation. 2: Total biophysical profile score of 8/8. Reviewed, dictated and finalized at location O.
[2024-12-05 08:54] VITALS: BP 125/72; PULSE 78
== END 2024-12-19 09:31 | disposition other institution (70) ==
LOC: ANHOBOP 08:21
PROVIDERS: Visit Provider Obstetrics & Gynecology
DX: O24.419 Gestational diabetes mellitus in pregnancy, unspecified control (principal); Z3A.34 34 weeks gestation of pregnancy
CPT/HCPCS: 59025; 76815; 76819

== ENCOUNTER 2024-12-11 15:55 | Inpatient (IN) | payer OTHER, SELFPAY ==
[2024-12-11] VITALS (18 sets, daily range): BP systolic 91–123; BP diastolic 57–84; PULSE 67–96; TEMP 36.9; BMI 27.7
[2024-12-11] MEDS: DINOPROSTONE 10 MG VAG INSERT VAGINAL (17:13)
[2024-12-11 17:14] LABS: Hematocrit 38.1 % (37.0-47.0); Hemoglobin 13.0 g/dL (12.0-15.0); Immature Granulocyte Percent A 0.9 % (0-0.5); Immature Platelet Fraction Pct 5.4 % (0.9-11.2); Lymphocytes Absolute Auto 1.99 K/mm3 (0.9-3.2); Mean Corpuscular HGB Conc 34.1 g/dl (32-36); Mean Corpuscular Hemoglobin 30.2 pg (26-34); Mean Corpuscular Volume 88.4 fl (80-100); Nucleated Red Blood Cells Absolute Auto 0.000 K/mm3 (0.0-0.012); Nucleated Red Blood Cells Perc 0.0 % (0.0-0.2); Platelet Count Result 123 k/mm3 (150-375); Red Blood Count 4.31 M/mm3 (4.2-5.4); White Blood Count 10.9 K/mm3 (4.5-10.0)
--- NOTE | 2024-12-11 17:22 | LDADM ---
This patient, Xiomara Armenta, was admitted to Labor/Delivery/Recovery 104 on 12/11/24 at 15:55. Plans for labor, pain management and were discussed with patient. Patient/family oriented to hospital policies and general routines including ID bracelet, bed and alarms, visiting hours, pain management, procedures, bathroom and other care routines, personal items, smoking policy, room service/diet and guest tray routines, infant security routines, and visiting hours. Patient/Family are encouraged to report perceived risks to care and to ask questions if they do not understand what they are told or what they should do. See OBIX for further documentation.
[2024-12-11 17:48] LABS: Syphilis IgG/IgM Antibody Non-Reactive (Nonreactive)
--- NOTE | 2024-12-11 18:25 | WPDANESEPP ---
Anes - Eval Pre Procedure Procedure: Labor epidural Date/Time: 12/11/24 18:25 Surgeon: Herson Preop Diagnosis: Abdominal pain with contractions Pre Op Diagnosis: IOL Patient Data Age: 29 Gender: F Height: 1.68 m Weight: 78 kg Last Vital Signs Temp 98.4 F 12/11/24 17:00 Pulse 82 12/11/24 18:16 BP 112/60 12/11/24 18:16 O2 Del Method Room Air 12/11/24 16:45 Allergies Allergy/AdvReac Type Severity Reaction Status Date / Time No Known Allergies Allergy Verified 12/11/24 17:45 Home Medications ?Medication ?Instructions ?Recorded ?Confirmed ?Type vits no.126-ferrous fum 1 tablet PO DAILY 01/15/24 12/11/24 History 28 mg iron-folic acid 800 mcg tablet (Classic ) calcium carbonate (Tums) 200 mg PO BID PRN heartburn 07/01/24 12/11/24 History psyllium husk 0.4 gram capsule 0.4 g PO DAILY PRN constipation 09/03/24 12/11/24 History (Metamucil) blood-glucose sensor (FreeStyle #2 ea 09/28/24 12/08/24 Rx Rick 2 Plus Sensor device) insulin glargine 100 unit/mL 12 unit subcut HS 11/14/24 12/11/24 History subcutaneous solution (Lantus U-100 Insulin) Laboratory Tests 12/11/24 12/11/24 16:34 16:39 WBC 10.9 H K/mm3 (4.5-10.0) RBC 4.31 M/mm3 (4.2-5.4) Hgb 13.0 g/dL (12.0-15.0) Hct 38.1 % (37.0-47.0) MCV 88.4 fl (80-100) MCH 30.2 pg (26-34) MCHC 34.1 g/dl (32-36) RDW 12.6 % (11.5-14.5) Plt Count 123 L k/mm3 (150-375) MPV 11.1 H fl (7.4-10.4) Immature Gran % (Auto) 0.9 H % (0-0.5) Neut % (Auto) 71.1 % (45.5-73.1) Lymph % (Auto) 18.2 L % (18.3-44.2) [place]go % (Auto) 9.1 H % (2.6-8.5) Eos % (Auto) 0.3 % (0-4.4) Baso % (Auto) 0.4 % (0.2-1.2) Lymph # (Auto) 1.99 K/mm3 (0.9-3.2) [place]idalgo # (Auto) 1.0 H K/mm3 (0.1-0.6) Eos # (Auto) 0.0 K/mm3 (0-0.3) Baso # (Auto) 0.0 K/mm3 (0.0-0.1) Abs Immat Gran (auto) 0.10 H K/mm3 (0.00-0.031) Absolute Neuts (auto) 7.8 H K/mm3 (1.3-6.7) Absolute Nucleated RBC 0.000 K/mm3 (0.0-0.012) Nucleated RBC % 0.0 % (0.0-0.2) % Immature Plt Fraction 5.4 % (0.9-11.2) POC Capillary Glucose 66 mg/dl (65-105) Syphilis IgG/IgM Ab Non-reactive (Nonreactive) Blood Type A Positive Antibody Screen Negative : gestational age HCG: positive Patient hx anesthesia problems: none Family hx anesthesia problems: none Results Review: All pre-operative results and documents have been reviewed as part of the pre-operative evaluation. [facility] Past Medical History Medical History (Updated 12/11/24 @ 18:26 by Lauro Reyes Jr., CRNA) Overweight (BMI 25.0-29.9) and not yet delivered Gestational diabetes mellitus Abnormal glucose tolerance in Mar 30 2021 Surgical History Surgical History H/O dilation and curettage suction d&c 01/17/2024 History of surgery on arm History of gynecological procedure Nexplanon insertion removed 9 months later Family History Family History Grandparent Pancreatic cancer maternal Grandmother and maternal grandfather Father Hypertension Mother Diabetes mellitus Depression Social History Social History Smoking status: Never smoker Second hand tobacco smoke exposure: No Alcohol intake: former Alcohol use details: socially 15 per month Substance use: never Substance use type: does not use Do You Feel Safe in your Home?: Yes Lack of Transportation: No Lack of Food: Never True Current Housing: I Have Housing Concerned About Future Housing: No Difficulty Paying Gas/Electric Bills: No Difficulty Paying for Meds: No Currently Unemployed: No Education: Master's Degree or Higher Difficulty w/ Childcare or Family Care: No Living arrangements: with family Additional living arrangements comments: 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
--- NOTE | 2024-12-11 19:19 | PM.IMHP ---
H&P: HPI History of Present Illness Date/Time: 12/11/24 19:19 Chief Complaint: medical induction Narrative: Ke is a 29yo @ 38w3d who presents for medical induction for A2GDM. She has been having to increase her nightly insulin every week due to elevated fasting blood sugars. Baby has also found to be LGA with >99%ile HC, AC. She has been undergoing testing which has been reassuring. Her is complicated by: - H/o T21 w/ 2nd tri loss; NIPT LR MALE - A2GDM, lantus 20u qhs Review of Systems Constitutional: Constitutional: Denies chills, Denies fever(s) and Denies headache(s) Eyes: Eyes: Denies change in vision ENT: Denies headache(s) Cardiovascular: Cardiovascular: Denies chest pain and Denies dyspnea Respiratory: Respiratory: Denies dyspnea Genitourinary: Genitourinary: Denies abnormal vaginal bleeding and Denies vaginal discharge Neurologic: Denies headache(s) Psychiatric: Psychiatric: Denies anxiety and Denies depression [facility] Past Medical History Medical History (Updated 12/11/24 @ 19:28 by Anushka Bains MD) Overweight (BMI 25.0-29.9) and not yet delivered Gestational diabetes mellitus Abnormal glucose tolerance in Mar 30 2021 Surgical History Surgical History H/O dilation and curettage suction d&c 01/17/2024 History of surgery on arm History of gynecological procedure Nexplanon insertion removed 9 months later Family History Family History Grandparent Pancreatic cancer maternal Grandmother and maternal grandfather Father Hypertension Mother Diabetes mellitus Depression Social History Social History Smoking status: Never smoker Second hand tobacco smoke exposure: No Alcohol intake: former Alcohol use details: socially 15 per month Substance use: never Substance use type: does not use Do You Feel Safe in your Home?: Yes Lack of Transportation: No Lack of Food: Never True Current Housing: I Have Housing Concerned About Future Housing: No Difficulty Paying Gas/Electric Bills: No Difficulty Paying for Meds: No Currently Unemployed: No Education: Master's Degree or Higher Difficulty w/ Childcare or Family Care: No Living arrangements: with family Additional living arrangements comments: 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 Gender identity (if verbalized by the patient): Female Sexual Orientation (if Verbalized by the Patient): Straight or Heterosexual Spiritual care concerns: No Meds Home Medications and Allergies Home Medications ?Medication ?Instructions ?Recorded ?Confirmed ?Type vits no.126-ferrous fum 1 tablet PO DAILY 01/15/24 12/11/24 History 28 mg iron-folic acid 800 mcg tablet (Classic ) calcium carbonate (Tums) 200 mg PO BID PRN heartburn 07/01/24 12/11/24 History psyllium husk 0.4 gram capsule 0.4 g PO DAILY PRN constipation 09/03/24 12/11/24 History (Metamucil) blood-glucose sensor (FreeStyle #2 ea 09/28/24 12/08/24 Rx Rick 2 Plus Sensor device) insulin glargine 100 unit/mL 12 unit subcut HS 11/14/24 12/11/24 History subcutaneous solution (Lantus U-100 Insulin) Allergies Allergy/AdvReac Type Severity Reaction Status Date / Time No Known Allergies Allergy Verified 12/11/24 17:45 Vital Signs Vital Signs - 24 hr 12/11/24 16:45 12/11/24 16:52 12/11/24 17:00 Temperature 98.4 F Pulse Rate 85 Blood Pressure 113/65 Oxygen Delivery Room Air 12/11/24 17:21 12/11/24 17:31 12/11/24 17:46 Temperature Pulse Rate 77 79 90 Blood Pressure 113/67 113/73 104/75 Oxygen Delivery 12/11/24 18:01 12/11/24 18:16 12/11/24 18:31 Temperature Pulse Rate 73 82 78 Blood Pressure 114/60 112/60 117/66 Oxygen Delivery 12/11/24 18:46 12/11/24 19:16 Temperature Pulse Rate 74 80 Blood Pressure 116/62 117/76 Oxygen Delivery Exam Const: General: cooperative, healthy appearing, comfortable and no acute distress Orientation/consciousness: patient oriented x3 Resp: Effort & Inspection: normal respiratory effort Cardio: Rate: regular rate GI: GI Palp: No abdominal tenderness : Other: FHT's: 120's/ mod armaan/ + accels/ no decels - cat 1 TOCO: ctxs q2min Cervix:2.5/thick/high Membranes: intact Presentation: cephalic Skin: General skin exam: normal color Neuro: General: patient oriented x3 Extrem: General: normal to inspection Psych: Appearance: grossly normal Affect: normal affect Attitude: cooperative H&P: Results Labs Labs: Short CBC 12/11/24 Range/Units 16:34 WBC 10.9 H (4.5-10.0) K/mm3 Hgb 13.0 (12.0-15.0) g/dL Hct 38.1 (37.0-47.0) % Plt Count 123 L (150-375) k/mm3 Assessment and Plan Assessment and plan (1) Gestational diabetes mellitus (GDM) requiring insulin: Code(s): O24.414 - Gestational diabetes mellitus in , insulin controlled Status: Acute (2) LGA (large for gestational age) fetus: Status: Acute Plan - Admitted overnight for induction of labor; risks and benefits discussed - Cervidil overnight - High dose pitocin per protocol in AM - Continuous monitoring - GBS neg - Anesthesia consult PRN pain - BS q4h while in latent phase, q2h in active phase; q1h if abnormal results; latus 20u tonight - we discussed the risks of shoulder dystocia; EFW 4150g on 12/09/24; if no cervical change or descensus, she is ok with proceeding with
[2024-12-11] MEDS: INSULIN GLARGINE (*BKC) 100 UNITS/ML 20 UNITS SUB-Q (20:39)
[2024-12-12] VITALS (145 sets, daily range): BP systolic 89–138; BP diastolic 36–98; PULSE 63–110; RESP 16–20; TEMP 36.2–37.9; O2SAT 94–100
[2024-12-12] MEDS: OXYTOCIN 30 UNITS/NS 500 ML 30 UNITS/500 ML BAG 6 UNITS IV CONT (05:39)
[2024-12-12] MEDS: LACTATED RINGERS 1,000 ML 125 ML IV CONT ×2 (05:40→13:58)
--- NOTE | 2024-12-12 08:07 | PM.OBPNLAB ---
Pain Control Date/time seen: 12/12/24 08:07 Pain control: tolerating well Pelvic Exam Dilation (cm): 2 (.5) Effacement (%): 60 station: -2 Amniotic membrane status: Ruptured (AROM, clear 0800) Contractions Monitor mode: External Status status: Category l Assessment and Plan Pitocin rate (mU/min): 12 Assessment: induction ongoing Plan: continuous present management Comments: - Will continue to monitor labor curve closely, but feels lower in station this AM in comparison to earlier this week - BS 130 this AM
[2024-12-12] MEDS: LACTATED RINGERS 1,000 ML 999 ML IV CONT (09:52)
--- NOTE | 2024-12-12 16:39 | PM.OBPNLAB ---
Pain Control Date/time seen: 12/12/24 16:39 Pain control: epidural Pelvic Exam Dilation (cm): 4 (.5) Effacement (%): 60 (edematous) station: -2 Amniotic membrane status: Ruptured (AROM, clear 0800) Contractions Monitor mode: Internal Contraction frequency: 2 (-3) Contraction intensity: Mild Intrauterine tone measurement: 105 ((max)) Status status: Category l Assessment and Plan Pitocin rate (mU/min): 30 Plan: Comments: - Pt has unchanged dilation and station and we cannot get her contractions adequate, even on 30u of pitocin - In the setting of LGA due to uncontrolled A2GDM on insulin, I have discussed we can proceed with continuing pitocin as she has not met criteria for arrest of active phase or descent and baby is category 1, but I think it's also appropriate to proceed with as well - She has decided to proceed with primary - Risks and benefits discussed in detail
[2024-12-12] MEDS: ACETAMINOPHEN 500 MG TABLET 1000 MG PO ×2 (16:54→22:54)
[2024-12-12] MEDS: AZITHROMYCIN IV 500 MG in SODIUM CHLORIDE 0.9% IV 250 ML IVPB (16:59)
--- NOTE | 2024-12-12 17:15 | WPDHPUPDATE1 ---
History and Physical Update Update Date/Time: 12/12/24 17:15 History and Physical has been reviewed, including an updated exam of the patient. There are NO changes in the patient's condition. Risks, benefits, and alternatives have been discussed and questions answered. Patient agrees to proceed with procedure.
[2024-12-12] MEDS: ONDANSETRON INJ 4 MG/2 ML VIAL IV PUSH (17:20)
[2024-12-12] MEDS: FAMOTIDINE 20 MG/2 ML VIAL IV PUSH (17:21)
[2024-12-12] MEDS: ceFAZolin 2 GM in SODIUM CHLORIDE 0.9% IV 50 ML 100 ML IVPB (17:37)
--- NOTE | 2024-12-12 17:52 | S_PTH ---
PATIENT: Xiomara Armenta LOC: [facility]2 U#:[id number] AGE/SX: 29/F ROOM: 291 RE12/11/[address]: Anushka Bains MD : 1995 BED: 00 DIS: 12/14/2024 SPEC #: [id number] RECD: 12/14/24 08:53 STATUS: KIYA REKatrina #: [id number] JAN: 12/12/24 17:[address]: Anushka Bains DEPT: [facility] Surgical RECD BY: Brianne Cleaning ENTERED: 12/14/24 08:53 SP TYPE: Surgical OTHR DR: UNKNOWN,DOCTOR Tissues: A - Placenta Procedures: Hematoxylin and Eosin Stain Gross and Microscopic Level 5
--- NOTE | 2024-12-12 18:32 | P.PCNOB_ITS ---
OB - Delivery Note Procedure Delivery date: 12/12/24 Pre-op diagnosis: Failed Induction of Labor, Gestational Diabetes (on insulin) and Macrosomia Post-op Diagnosis: Same Induction method: Per Cervidil Protocol Delivery augmentation: Rupture of Membranes and Pitocin Delivery monitor: External FHT and Internal Uterine Prior to decision for section, ACOG/SM labor guidelines were considered and discussed with the patient and staff. Decision made to proceed with the section.: Yes Procedure Performed: Primary Primary branch: low cervical, transverse Surgeon: Anushka Bains MD Anesthesia type: Epidural Description of Procedure/Findings: Male infant, ROT, clear fluid. Cord coiled up by chest. Normal fallopian tubes and ovaries bilaterally. Good Specimen: Yes (placenta) Estimated Blood Loss: 525 IV Fluids: 1,100 Pathology: Yes (placenta) Complications: No immediate complications Condition: Stable Disposition: Floor [place] Baby Date of : 12/12/24 Time of : 17:50 Gestational Age by Date: 38 (.4) Infant gender: Male Weight (pounds): 9 Weight (ounces): 5 presentation: vertex position: Right Occiput Transverse Placenta delivery description: Expressed Cord Vessel Description: 3 Vessels score one minute: 9 score five minutes: 9 Narrative: Ke was counseled on all risks and benefits in detail. She was taken to the operating room where epidural was found to be adequate. She was then prepped and draped in the normal sterile fashion. She received 2g Ancef and azithromycin 500mg and a time out was performed. A Pfannenstiel incision was made in the skin and carried down to the underlying fascia. The fascia was nicked on either side of the midline and the fascial incision was extended laterally and superiorly using curved Vazquez scissors. The fascia was then elevated using Nicolasa clamps and the underlying rectus muscles were dissected off the fascia, superiorly and inferiorly. The rectus muscles were then in the midline and the peritoneum was entered bluntly. Once adequate exposure was obtained, a Mobius self retractor was placed within the abdomen. A bladder flap was created. A low transverse incision was made on the lower uterine segment and clear fluid was noted. The occiput was brought to the hysterotomy and the head was easily delivered. The shoulders and body then followed without complications. The infant had spontaneous cry and the mouth and nose were bulb suctioned. The cord was clamped and cut and the was handed off to the awaiting pediatric nurse. A segment of the cord was collected for cord gases. The remaining cord blood was collected for typing. With pitocin infusing, the placenta delivered with gentle traction on the cord without complications. The uterus was then cleared out of all clots and debris using a clean, moist lap. The hysterotomy was then repaired in a running fashion using 0 Vicryl. A second layer imbricating suture was then made using 0 Vicryl. The hysterotomy was found to be hemostatic and good uterine tone was noted. The bilateral adnexa were examined and found to be normal. The pelvis was cleared of all clots and fluid. The Mobius retractor was removed from the abdomen. The peritoneum, muscle, and fascia were examined and made hemostatic with Bovie cautery. The fascia was then repaired using a 0 Vicryl suture in a running fashion. The subcutaneous tissue was then irrigated and made hemostatic with Bovie cautery. The subcutaneous tissue was then reapproximated using 2-0 Vicryl. The skin was then closed using 4-0 Monocryl in a running subcuticular fashion. Sponge, lap, needle and instrument counts were correct at the end of the procedure x2. A Mepilex dressing was placed over the incision. The patient tolerated the procedure well and was taken to recovery in a stable condition.
[2024-12-12] MEDS: OXYTOCIN 30 UNITS/NS 500 ML 30 UNITS/500 ML BAG 125 UNITS IV CONT (18:44)
[2024-12-12] MEDS: MORPHINE SULFATE INJ (*CRX) 10 MG/ML AMP 2 MG IV PUSH ×3 (19:34→20:38)
[2024-12-12] MEDS: LIDOCAINE 5% PATCH 1 PATCH TRANSDERM (21:41)
[2024-12-12] MEDS: KETOROLAC 15 MG/ML VIAL (*BKC) IV PUSH (22:53)
--- NOTE | 2024-12-12 23:55 | OBPPTRN ---
Patient transferred to post room #291 in bed. Support person present. Xiomara and her significant other oriented to unit, room, information board, rooming in, admission packet and security measures. Patient verbalizes understanding.
[2024-12-13 03:00] VITALS: BP 116/77; PULSE 72; RESP 16; TEMP 36.5; O2SAT 97
[2024-12-13] MEDS: ACETAMINOPHEN 500 MG TABLET 1000 MG PO ×4 (04:58→22:51)
[2024-12-13] MEDS: KETOROLAC 15 MG/ML VIAL (*BKC) IV PUSH (04:59)
[2024-12-13 05:44] LABS: Hematocrit 32.7 % (37.0-47.0); Hemoglobin 11.0 g/dL (12.0-15.0); Immature Granulocyte Percent A 0.6 % (0-0.5); Immature Platelet Fraction Pct 4.0 % (0.9-11.2); Lymphocytes Absolute Auto 1.54 K/mm3 (0.9-3.2); Mean Corpuscular HGB Conc 33.6 g/dl (32-36); Mean Corpuscular Hemoglobin 30.2 pg (26-34); Mean Corpuscular Volume 89.8 fl (80-100); Nucleated Red Blood Cells Absolute Auto 0.000 K/mm3 (0.0-0.012); Nucleated Red Blood Cells Perc 0.0 % (0.0-0.2); Platelet Count Result 96 k/mm3 (150-375); Red Blood Count 3.64 M/mm3 (4.2-5.4); White Blood Count 12.6 K/mm3 (4.5-10.0)
--- NOTE | 2024-12-13 08:45 | P.PNOB_ITS ---
OB - PN: Subj Subjective Date/time seen: 12/13/24 08:45 Narrative: POD#1 Ke reports doing well today. 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 Her pain is controlled. She has tolerated regular diet. Catheter is still in place; has not ambulated yet. She denies any issues with her incision. She is breast feeding. She would like her son circumcised. OB - PN: Obj Data Labs 12/13/24 04:55 Labs: Laboratory Results - last 24 hr 12/12/24 12/12/24 12/12/24 12:01 15:59 20:50 WBC RBC Hgb Hct MCV MCH MCHC RDW Plt Count MPV Immature Gran % (Auto) Neut % (Auto) Lymph % (Auto) [place] % (Auto) Eos % (Auto) Baso % (Auto) Lymph # (Auto) [place] # (Auto) Eos # (Auto) Baso # (Auto) Abs Immat Gran (auto) Absolute Neuts (auto) Absolute Nucleated RBC Nucleated RBC % % Immature Plt Fraction POC Capillary Glucose 93 65 89 12/13/24 04:55 WBC 12.6 H RBC 3.64 L Hgb 11.0 L Hct 32.7 L MCV 89.8 MCH 30.2 MCHC 33.6 RDW 12.9 Plt Count 96 L MPV 10.7 H Immature Gran % (Auto) 0.6 H Neut % (Auto) 80.5 H Lymph % (Auto) 12.2 L [place] % (Auto) 6.3 Eos % (Auto) 0.2 Baso % (Auto) 0.2 Lymph # (Auto) 1.54 [place] # (Auto) 0.8 H Eos # (Auto) 0.0 Baso # (Auto) 0.0 Abs Immat Gran (auto) 0.08 H Absolute Neuts (auto) 10.1 H Absolute Nucleated RBC 0.000 Nucleated RBC % 0.0 % Immature Plt Fraction 4.0 POC Capillary Glucose OB - PN A/P Assessment and Plan (1) S/P section: Code(s): Z98.891 - History of uterine scar from previous surgery Status: Acute Plan day: 1 Plan: routine care Comments: - PO pain meds - Regular diet - Ambulation and hydration encouraged - Continue putting baby to breast q2-3hr - Circumcision performed w/o issue Time Spent With Patient Time: Total time spent is greater than 50% in coordination of care (as documented) at patient's floor/unit and/or counseling patient: Review of Systems 2 Constitutional: Constitutional: Denies chills, Denies fever(s) and Denies headache(s) Eyes: Eyes: Denies change in vision ENT: Denies dizziness and Denies headache(s) Cardiovascular: Cardiovascular: Denies chest pain, Denies palpitations and Denies dyspnea Respiratory: Respiratory: Denies cough and Denies dyspnea Gastrointestinal: Gastrointestinal: Denies nausea and Denies vomiting Genitourinary: Comments: normal bleeding Neurologic: Denies dizziness and Denies headache(s) Endocrine: Endocrine: Denies palpitations Exam 2 Const: General: cooperative, comfortable and no acute distress O rientation/consciousness: patient oriented x3 Resp: Effort & Inspection: normal respiratory effort Auscultation: clear to auscultation bilaterally Cardio: Rate: regular rate GI: Inspection: non-distended and incision (covered with clean dressing) GI Palp: Yes abdominal tenderness (appropriate) and Yes Soft to palpation A uscultation: normal bowel sounds : Other: fundus firm Skin: General skin exam: normal color Neuro: General: patient oriented x3 Extrem: General: normal to inspection Psych: Appearance: grossly normal Affect: normal affect Attitude: c ooperative
[2024-12-13] MEDS: SIMETHICONE 80 MG TAB.CHEW PO ×2 (08:55→11:20)
[2024-12-13] MEDS: DOCUSATE SODIUM 100 MG CAPSULE PO ×2 (08:56→17:16)
[2024-12-13] MEDS: MULTIVIT/MIN/PREN/FOL AC/IRON TABLET 1 TAB PO (08:56)
[2024-12-13 09:39] VITALS: BP 124/75; PULSE 93; RESP 14; TEMP 36.9; O2SAT 99
[2024-12-13] MEDS: IBUPROFEN 600 MG TABLET PO ×3 (11:19→22:51)
--- NOTE | 2024-12-13 15:29 | WPDANLDPN2 ---
Anes-Prog Note L&D Date/Time: 12/13/24 15:29 Comfortable throughout: labor, delivery and section Neuraxial method: epidural Epidural/Spinal procedure site: clean & non-tender Neuro status: Neuro function grossly intact. Cardiovascular status: normal Respiratory status: normal Airway patency: baseline Mental status: baseline Post-Op hydration status: normal Vital Signs: Last Vital Signs Temp 36.9 C 12/13/24 09:39 Pulse 93 12/13/24 09:39 Resp 14 12/13/24 09:39 BP 124/75 12/13/24 09:39 Pulse Ox 99 12/13/24 09:39 O2 Del Method Room Air 12/12/24 20:45 Pain score (VAS): 1 I/O: Intake & Output 12/12/24 12/13/24 12/13/24 23:59 07:59 15:59 Intake Total 1779.2 700 640 Output Total 1450 1400 Balance 1779.2 -519 -986 Post-procedural complaints: none Patient feedback: Patient satisfied with anesthetic care.
--- NOTE | 2024-12-13 15:29 | WPDANLDNPN2 ---
Anes-Prog Note L&D-Neuraxial Date/Time: 12/13/24 15:29 Neuraxial medications: epidural PF morphine Opiod-related complaints: none Patient feedback: Patient satisfied with post-operative pain management.
[2024-12-13 15:57] VITALS: BP 116/76; PULSE 88; RESP 14; TEMP 36.9; O2SAT 99
[2024-12-13] MEDS: oxyCODONE HCL (*CRX) 5 MG TAB IR PO (17:16)
[2024-12-13] MEDS: LIDOCAINE 5% PATCH 1 PATCH TRANSDERM (17:24)
[2024-12-13 20:00] VITALS: BP 121/82; PULSE 80; RESP 16; TEMP 36.3; O2SAT 98
[2024-12-14] MEDS: ACETAMINOPHEN 500 MG TABLET 1000 MG PO ×2 (04:53→11:05)
[2024-12-14] MEDS: IBUPROFEN 600 MG TABLET PO ×2 (04:54→11:05)
[2024-12-14 05:03] LABS: Hematocrit 30.0 % (37.0-47.0); Hemoglobin 10.1 g/dL (12.0-15.0); Immature Platelet Fraction Pct 2.7 % (0.9-11.2); Mean Corpuscular HGB Conc 33.7 g/dl (32-36); Mean Corpuscular Hemoglobin 30.2 pg (26-34); Mean Corpuscular Volume 89.8 fl (80-100); Platelet Count Result 102 k/mm3 (150-375); Red Blood Count 3.34 M/mm3 (4.2-5.4); White Blood Count 10.8 K/mm3 (4.5-10.0)
--- NOTE | 2024-12-14 07:10 | P.PNOB_ITS ---
OB - PN: Subj Subjective Date/time seen: 12/14/24 07:13 Narrative: POD#2 Ke reports doing well today. 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 Her pain is controlled. She is tolerating regular diet, voiding, passing gas, and ambulating without issues. She denies any issues with her incision. She is breast feeding. She would like to go home today. OB - PN: Obj Data Labs 12/14/24 04:51 Labs: Laboratory Results - last 24 hr 12/12/24 12/12/24 12/12/24 12:01 15:59 20:50 WBC RBC Hgb Hct MCV MCH MCHC RDW Plt Count MPV Immature Gran % (Auto) Neut % (Auto) Lymph % (Auto) [place] % (Auto) Eos % (Auto) Baso % (Auto) Lymph # (Auto) [place] # (Auto) Eos # (Auto) Baso # (Auto) Abs Immat Gran (auto) Absolute Neuts (auto) Absolute Nucleated RBC Nucleated RBC % % Immature Plt Fraction POC Capillary Glucose 93 65 89 12/13/24 04:55 WBC 12.6 H RBC 3.64 L Hgb 11.0 L Hct 32.7 L MCV 89.8 MCH 30.2 MCHC 33.6 RDW 12.9 Plt Count 96 L MPV 10.7 H Immature Gran % (Auto) 0.6 H Neut % (Auto) 80.5 H Lymph % (Auto) 12.2 L [place] % (Auto) 6.3 Eos % (Auto) 0.2 Baso % (Auto) 0.2 Lymph # (Auto) 1.54 [place] # (Auto) 0.8 H Eos # (Auto) 0.0 Baso # (Auto) 0.0 Abs Immat Gran (auto) 0.08 H Absolute Neuts (auto) 10.1 H Absolute Nucleated RBC 0.000 Nucleated RBC % 0.0 % Immature Plt Fraction 4.0 POC Capillary Glucose OB - PN A/P Assessment and Plan (1) S/P section: Code(s): Z98.891 - History of uterine scar from previous surgery Status: Acute Plan day: 2 Plan: routine care Comments: - PO pain meds - Regular diet - Ambulation and hydration encouraged - Continue putting baby to breast q2-3hr Time Spent With Patient Time: Total time spent is greater than 50% in coordination of care (as documented) at patient's floor/unit and/or counseling patient: Review of Systems 2 Constitutional: Constitutional: Denies chills, Denies fever(s) and Denies headache(s) Eyes: Eyes: Denies change in vision ENT: Denies dizziness and Denies headache(s) Cardiovascular: Cardiovascular: Denies chest pain, Denies palpitations and Denies dyspnea Respiratory: Respiratory: Denies cough and Denies dyspnea Gastrointestinal: Gastrointestinal: Denies nausea and Denies vomiting Genitourinary: Comments: normal bleeding Neurologic: Denies dizziness and Denies headache(s) Endocrine: Endocrine: Denies palpitations Exam 2 Const: General: cooperative, comfortable and no acute distress O rientation/consciousness: patient oriented x3 Resp: Effort & Inspection: normal respiratory effort Auscultation: clear to auscultation bilaterally Cardio: Rate: regular rate GI: Inspection: non-distended and incision (covered with clean dressing) GI Palp: Yes abdominal tenderness (appropriate) and Yes Soft to palpation A uscultation: normal bowel sounds : Other: fundus firm Skin: General skin exam: normal color Neuro: General: patient oriented x3 Extrem: General: normal to inspection Psych: Appearance: grossly normal Affect: normal affect Attitude: c ooperative
[2024-12-14 07:35] VITALS: BP 116/75; PULSE 72; RESP 16; TEMP 36.9; O2SAT 95
[2024-12-14] MEDS: DOCUSATE SODIUM 100 MG CAPSULE PO (07:39)
[2024-12-14] MEDS: MULTIVIT/MIN/PREN/FOL AC/IRON TABLET 1 TAB PO (07:40)
[2024-12-14] MEDS: SIMETHICONE 80 MG TAB.CHEW PO ×2 (07:40→11:05)
[2024-12-14] MEDS: oxyCODONE HCL (*CRX) 5 MG TAB IR PO (07:40)
--- NOTE | 2024-12-14 07:58 | PM.OBDSVD ---
DS: Admitting Diagnosis Discharge Date 12/14/24 Admitting Diagnosis Induction of labor A2GDM LGA DS: Discharge Diagnosis Discharge Diagnosis (1) S/P section: Code(s): Z98.891 - History of uterine scar from previous surgery Status: Acute (2) LGA (large for gestational age) fetus: Status: Acute (3) Gestational diabetes mellitus (GDM) requiring insulin: Code(s): O24.414 - Gestational diabetes mellitus in , insulin controlled Status: Acute OB - DS: Summary OB Procedures : NST and Ultrasound OB Procedures Intrapartum: low cervical, transverse OB Procedures: : None Peripartum Data Infant Delivery Method: Section Procedures: Procedures Operation Date: 12/12/24 16:45 Actual Procedure Side Surgeon p Section Anushka Bains MD complications: none 1: Gender: Male Disposition of : home Status at Discharge Functional status at discharge: independent ambulation Overall status at discharge: patient is back to baseline Time Spent with Patient Time attestation: Total time spent providing and/or coordinating discharge services: Exam Const: General: cooperative, healthy appearing, comfortable and no acute distress Orientation/consciousness: patient oriented x3 Resp: Effort & Inspection: normal respiratory effort Auscultation: clear to auscultation bilaterally Cardio: Rate: regular rate GI: Inspection: non-distended and incision (covered with clean dressing) GI Palp: No abdominal tenderness and Yes Soft to palpation Auscultation: normal bowel sounds : Other: fundus firm Skin: General skin exam: normal color Neuro: General: patient oriented x3 Extrem: General: normal to inspection Psych: Appearance: grossly normal Affect: normal affect Attitude: cooperative DS: Data Data Completed and Pending Pending studies at discharge: Pending at discharge 12/12/24 17:52 Surgical [PTH] Routine Labs on day of discharge: Labs from last 24 hours 12/14/24 04:51 WBC 10.8 H RBC 3.34 L Hgb 10.1 L Hct 30.0 L MCV 89.8 MCH 30.2 MCHC 33.7 RDW 13.0 Plt Count 102 L MPV 10.1 % Immature Plt Fraction 2.7 Discharge Plan Discharge Attending physician on discharge: Anushka Bains Discharging Clinician: Anushka Bains Patient Disposition: Home Activity: may shower and pelvic rest Diet: regular Discharge Instructions: Remove dressing on 12/18/24. No lifting over 15lbs for 6 weeks. Patient Instructions: (DC) Patient Language: [place] Citizen Stand Alone Forms: General Discharge Information Follow-up/Referrals: Anushka Bains MD [Physician, ACCOUNT SUPPORT ASSOCIATE] - 4 Weeks Discharge Medications: New oxycodone 5 mg Tablet 5 mg PO Q4H PRN (Reason: Pain Rated 4-6) Qty: 18 0RF docusate sodium 100 mg Capsule 100 mg PO BID Qty: 90 0RF ibuprofen 600 mg Tablet 600 mg PO Q6HR Qty: 40 0RF acetaminophen 500 mg Tablet 1,000 mg PO Q6HR Qty: 60 0RF Continued psyllium husk [Metamucil] 0.4 gram capsule 0.4 g PO DAILY PRN (Reason: constipation) Classic 28 mg iron- 800 mcg tablet 1 tablet PO DAILY Discontinued calcium carbonate [Tums] 200 mg calcium (500 mg) tablet,chewable 200 mg PO BID PRN (Reason: heartburn) insulin glargine [Lantus U-100 Insulin] 100 unit/mL solution 12 unit subcut HS (DME) FreeStyle Rick 2 Plus Sensor Device See Rx Instructions .Route Qty: 2 5RF Rx Instructions: As directed Date of admission: 12/11/24 15:55 Primary Care Provider: UNKNOWN,DOCTOR Admitting Provider: Anushka Bains Attending physician on admission: Anushka Bains Condition: Stable
--- NOTE | 2024-12-14 10:15 | PC.NURSE ---
Introductions were made, then consulted with patient to assess needs related to . Mother led the conversation with her?plans to feed?her infant and the?experience so far. Patient states that having dad give bottles has been very helpful because she had an unexpected and she is in pain. She pumped once yesterday with her Spectra pump and has been latching with a nipple shield when she does put baby to breast. Last night parents chose to exclusively bottle feed with formula. There is a physician order to supplement after each . Encouraged understanding of milk production, building/maintaining a milk supply, and the need to be consistent now with regular breast stimulation so that she will have an adequate supply when her milk is in. Patient states that she may try to breastfeed with the shield at the next feeding. Reviewed pumping when using the nipple shield to increase stimulation. Patient is unsure if she will continue to provide any breast milk to baby. Anticipatory guidance given. Mother voiced understanding of the need for consistent breast stimulation at least 8 times a day, whether it is with the pump or putting baby to breast. Resources used for education included inpatient/outpatient resources provided with phone number, feeding sheet, name written on the communication board, and the mom/baby guide. Parents voiced understanding of information, demonstrated learning and will call if there is a request for assistance. Reported to the Primary RN.
--- NOTE | 2024-12-14 10:31 | PC.NURSE ---
Patient viewed the discharge video Mother & Baby Care, The First Two Weeks. Patient was given the opportunity and encouraged to ask questions. Patient verbalized understanding of information shared and has been given the mother/baby guide for home reference.
[2024-12-15 08:18] VITALS: BP 125/89; PULSE 81; RESP 18; TEMP 37.4; O2SAT 100
== END 2024-12-14 13:05 | disposition home or self-care (01) | DRG 788 ==
LOC: ANHLDR 15:57 → ANHOB2 12-12 23:47
PROVIDERS: Admitting Provider Obstetrics & Gynecology; Visit Provider Obstetrics & Gynecology
PROC: 10D00Z1 Extraction of Products of Conception, Low, Open Approach (ICD-10-PCS; CPT 59514; principal; 2024-12-12 16:45)
DX: O24.424 Gestational diabetes mellitus in childbirth, insulin controlled (principal); Z37.0 Single live birth; Z3A.38 38 weeks gestation of pregnancy; O62.1 Secondary uterine inertia; O36.63X0 Maternal care for excessive fetal growth, third trimester, not applicable or unspecified
CPT/HCPCS: 36415; 82948; 85025; 85027; 85055; 86593; 86850; 86900; 86901; 88307; J0690; A9270; J0456; J1815; J1885; J2270; J2274; J2405; J2590; J2795; J7050; J7120

== ENCOUNTER 2024-12-28 15:35 | Outpatient (CLI) | payer OTHER, SELFPAY ==
--- NOTE | 2024-12-28 16:33 | PC.NURSE ---
In- 1540 Out- 1620 Reason for visit: Education and support with using her pump, and flange resizing. History: Ke had a at 38 weeks on Dec 12, 2024. She had gestational diabetes but otherwise uncomplicated . She has had no recent illnesses, does not take any medications, and has been getting adequate fluids/diet. She has been using her spectra pump, but questions whether she has the correct size flange. This is her first baby, and upon discharge from the hospital she was pumping and bottle feeding her . She reports she pumps about 4 oz each pumping session, about every 2-3 hours. Mom has been pumping for 15-20 min. Infant History: Baby Daryl was delivered via c/s at 38 weeks and 4 days. At his lowest weight he was 8-5 but has continued to gain and is back up to his birthweight at his last Dr appointment on 12/08. Ke had planned on , but after her she started pumping out of necessity and decided to continue with that plan since it was working well for her and for baby. Baby Daryl eats about every 2-3 hours, and seems satisfied after his feedings. He has at least 6-8 wet diapers in a day and 5 or more stools on average. Daryl is not spitting up after feedings, and is doing well overall. weight: 9-5 Lowest weight: 8-5 Last weight: 9-3 Plan of Care: Ke questioned whether she has the correct size flange even tho she has no pain with pumping, which is what brings her in today. We re-measured her to get the correct flange size, and reviewed the settings on her spectra pump to be sure she is using it correctly. She had been using a size 28 on the Right and 24 on the Left breast. After pumping for a few minutes we checked her sizing, and she measured 26 for the R breast and 24 for the L breast. Ke was encouraged to switch to the new flange sizes we discussed and continue with her established pumping schedule. She will plan to call the number with questions or concerns that come up. Follow up plans: Ke is aware she can call the team to ask questions or voice concerns, as well as make another follow up appointment anytime. Ke was provided with educational handouts for cleaning her pump and flange sizing.
--- OUTSIDE RECORDS SUMMARY | 2024-12-28 18:18 | XMS_ITS | Clinical Summary ---
Author Organization [facility] Address [address] [place] [address] Care Team Providers Care Car Knocker Name Role Phone No, Physician Primary Care Provider [phone] Anushka Bains MD Unavailable [phone] Allergies No known active allergies Medications No known medications Active Problems Problem Noted Date Diagnosed Date Gestational diabetes mellitus (GDM) in [facility] 11/16/2024 Supervision of high-risk , [facility] 11/16/2024 Overview (11/18/2024): [] OB consult only, [x] Co-management vs. [] Full M Care; [] Red Team [] Blue Team Referring Provider: Anushka Bains [phone] [] or Medicare Insurance [x] Dating Criteria: LMP 03/17/24 with ANTON 12/22/24 [x] Labs: Rh [A+], Ab [negative], Rubella [immune], HIV [non-reactive], HepBSAg [non-reactive], HepBSAb [not done], HepBCAb [not done], RPR [non- reactive], Hep C [not done], Varicella [positive], GC/CT [not done] [x] Aneuploidy Screening: NIPT low risk [] Carrier Screening: [] Hgb electrophoresis: [x] CBC/Hgb: 13.3/38.0/plt 191 [] Early 1hr GTT (if indicated): [x] UCx: 05/07/24: no growth [x] Pap: 6/8/23: NILM; [] LD ASA (if indicated): [] EPDS [ ]; PNBHS referral (if indicated): 2nd Trimester [] Anatomy ultrasound: [x] CBC/1hr gtt at 24-28wks: 09/24/24: 10.7/32.5/plt 128, GTT 182, RPR [non- reactive], HIV [non-reactive] [x] 3hr glucose 09/25/24: 91,194,199,149 [] Rhogam at 28 wks (if Rh neg): 3rd Trimester [] CBC/HIV/RPR/T&S: [] GBS: [] GC/CT (if indicated): [] testing: Counseling [] MOD: [] Place of delivery: [] Epidural: [] Accepts Blood Products: [] Stop ASA: [] MOC: [] Method of feeding: [] Hardboard Supervisor (specifically which provider): [] PP Depression Discussed: [] PP visits scheduled: Vaccines [] Flu Shot (Nov-Feb): [] COVID vaccine: [] Tdap (27-36wks): [] RSV vaccine (32-36wks): [] PP HPV vaccine counseling (<=26 yo): Comments Yes Encounters Date Type Department Care Team Description 11/19/2024 Telephone [facility] Medicine Obstetrics and Gynecology [facility] [place] [address] Krystal Paez 11/12/2024 Telephone [facility] Medicine Maternal- Medicine [address] [facility] 7th [address] [place] [address] Radha Quan CMA Scheduling US/OBC from Last 3 Months Surgical History Surgery Date Site/Laterality Comments DILATION [...] on file Legal Sex 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 Gender Identity Not on file Sexual Orientation Not on file Obstetrics History Para Term AB IAB SAB Ectopic Multiple Livin g Live Births 3 2 1 1 Date Outcome GA Total Labor Labor/2nd/3rd Weight Sex Type Anes PTL Neida A1 A5 Name Clin IAB SAB 13w 0d D&C Demise Current Comments Preg# 1 - 13 week - Trisomy 21 Summary Episode Dates Number of Fetuses Estimated Date of Delivery 11/16/2024 - Present (12/28/2024) Unknown Dating Summary Based On ANTON [place] Diff Last Menstrual Period on 03/17/2024 12/22/2024 Ultrasound on 05/13/2024 12/22/2024 GA:8w1d Ultrasound on 08/05/2024 12/15/2024 GA:21w1d Ultrasound on 10/14/2024 12/06/2024 GA:32w3d Notes Progress Notes - Abstract - 11/16/2024 - GA: 11/16/2024 - Daniela Zarate ra, RMA Current OB records are under media tab. Records from 01/2024 D&C are under media tab dated 02/17/24. NIECY records are in [facility]. Most recent visit was 05/04/24. Last Filed Vital Signs Vital Sign Reading Time Taken Comments Blood Pressure 127/78 05/04/2024 12:34 PM DIMENSION MILL WORKER Pulse 82 05/04/2024 12:34 PM DIMENSION MILL WORKER Temperature - - Respiratory Rate - - Oxygen Saturation 98% 07/25/2023 11: 06 AM CDT Inhaled Oxygen Concentration - - Weight 65.7 kg (144 lb 12.8 oz) 025 12:34 PM DIMENSION MILL WORKER Height 167.6 cm (5' 6) 05/04/2024 12:3 4 PM DIMENSION MILL WORKER Body Mass Index 23.37 05/04/2024 12:34 PM DIMENSION MILL WORKER Plan of Treatment Health Maintenance Due Date Last Done Comments Cervical Cancer Screening 1993 Depression Screening 1993 Hepatitis C Screening 1993 Regular Well Visit/Exam 18-64 11/09/2011 DTaP/Tdap/Td Vaccine (7 - Td or Tdap) 04/26/2021 04/26/2011, 12/07/2005, 07/27/1998, Additional history exists Covid-19 Vaccine ( season) 2024 04/21/2021 Influenza Vaccine (#1) 2024 12/16/2020 HPV Vaccines Completed 06/24/2007, 02/08, 12/05/2006 Varicella Vaccines Completed 08/28/2017, 07/24/2017 Hepatitis B Screening Completed 09/19/2017 , 08/16/1994, 01/18/1994, Additional history exists Pneumococcal vaccine <65 Aged Out No longer eligible based on patient's age to complete this topic Insurance [facility]PPO Address: [address] [address] [facility]PPO Address: [facility] [address] [phone] Care Teams Car Knocker Relationship Specialty Start Date End Date No, Physician PCP - General 07/09/23 Anushka Bains MD [address] [place] [address] Obstetrics and Gynecology 02/10/24
== END 2024-12-28 15:36 | disposition home or self-care (01) ==
PROVIDERS: Visit Provider Pediatrics
DX: Z39.1 Encounter for care and examination of lactating mother (principal)
CPT/HCPCS: 99212; G0463

== ENCOUNTER 2025-01-16 07:43 | Outpatient (CLI) | payer OTHER, SELFPAY ==
[2025-01-16 10:27] LABS: Glucose 1 Hour 127 mg/dL
[2025-01-16 10:58] LABS: Glucose 2 Hour 89 mg/dL
== END 2025-01-16 07:44 | disposition home or self-care (01) ==
LOC: ANHLAB 07:45
PROVIDERS: Visit Provider Obstetrics & Gynecology
DX: O24.414 Gestational diabetes mellitus in pregnancy, insulin controlled (principal); Z3A.00 Weeks of gestation of pregnancy not specified
CPT/HCPCS: 36415; 82951

== ENCOUNTER 2025-01-29 12:52 | Emergency (ER) | payer OTHER, SELFPAY ==
--- NOTE | ~2025-01-29 | US_ITS ---
EXAMINATION: US pelvic limited, 01/29/2025 17:00 MAJOR GIFTS MANAGER HISTORY: Pelvic mass Comparison: Comparison CT recently obtained. Technique: Machado-scale and color Doppler images were obtained. Findings: Uterus: Uterus anteverted 8.7 x 3.4 x 5 cm. . Correlating with the finding on the previous CT there is a complex focus noted measuring 5.2 x 2.7 x 3 cm although it is not clear where this mass originates from. Endometrium 5.2 mm, minimal endometrial fluid. Right Ovary:Right ovary 2.1 x 1.4 x 2.1 cm, no adnexal mass, normal flow. Left Ovary: Left ovary 2.2 x 1 x 1 cm, no adnexal mass, normal flow. Free Fluid: Minimal free fluid is noted. Impression: Large complex pelvic mass detailed possibly a large pedunculated fibroid however distinction from an ovarian origin is limited. Neoplasm is not excluded. Contrast-enhanced MRI is recommended Reviewed, dictated and finalized at location P. R GIFTS MANAGER Impression: Large complex pelvic mass detailed possibly a large pedunculated fibroid howeve r distinction from an ovarian origin is limited. Neoplasm is not excluded. Con trast-enhanced MRI is recommended
--- NOTE | ~2025-01-29 | CT_ITS ---
EXAM/PROCEDURE: CT abdomen pelvis w con HISTORY: Left lower quadrant pain COMPARISON: None available. TECHNIQUE: IV contrast enhanced CT of abdomen and pelvis performed. FINDINGS: The lung bases are clear and heart size is normal. In the abdomen and pelvis, the bowel gas pattern is nonobstructive with no free air or pneumatosis seen. Small amount of free fluid in the lower pelvis. In the posterior mid pelvis is a large mass which is essentially isoattenuating to uterus, measuring 10.2 x 8.6 x 7.1 cm. No clear connection with the uterus is present, though the mass is compressed directly up to the posterior body and fundus of the uterus displacing the uterus anteriorly. Adnexal regions are unremarkable. No acute vascular compromise seen. The aorta appears normal. The appendix is not confidently visualized but no grossly inflamed appendix seen. No hydroureteronephrosis. Gallbladder spleen pancreas stomach and liver appear within normal limits for technique. Urinary bladder also appears somewhat compressed with mild wall thickening possibly present. IMPRESSION: 1. 10.2 x 8.6 cm posterior pelvic mass contiguous with the posterior uterine body may represent large exophytic fibroid. Other neoplastic intrapelvic processes are not excluded. Correlation with pelvic ultrasound recommended. 2. Mild wall thickening of the urinary bladder possibly due to nondistention. Correlate with urinalysis. Reviewed, dictated and finalized at location A. TIVE ENGAGEMENT DIRECTOR IMPRESSION: 1. 10.2 x 8.6 cm posterior pelvic mass contiguous with the posterior uterine noel dy may represent large exophytic fibroid. Other neoplastic intrapelvic processe s are not excluded. Correlation with pelvic ultrasound recommended. 2. Mild wall thickening of the urinary bladder possibly due to nondistention. C orrelate with urinalysis.
[2025-01-29 12:54] VITALS: BP 158/96; PULSE 93; RESP 16; TEMP 37.2; O2SAT 99
--- OUTSIDE RECORDS SUMMARY | 2025-01-29 12:58 | XMS_ITS | Clinical Summary ---
Author Organization [facility] Address [address] [place] [address] Care Team Providers Care Special Effects Designer Name Role Phone No, Physician Primary Care Provider [phone] Anushka Bains MD Unavailable [phone] Allergies No known active allergies Medications No known medications Active Problems Problem Noted Date Diagnosed Date Gestational diabetes mellitus (GDM) in [facility] 11/16/2024 Supervision of high-risk , [facility] 11/16/2024 Overview (11/18/2024): [] OB consult only, [x] Co-management vs. [] Full M Care; [] Red Team [] Blue Team Referring Provider: Anushka Bains [phone] [] or Medicare Insurance [x] Dating Criteria: [...] [] MOC: [] Method of feeding: [] Water Reclamation Systems Operator (specifically which provider): [] PP Depression Discussed: [] PP visits scheduled: Vaccines [] Flu Shot (Nov-Feb): [] COVID vaccine: [] Tdap (27-36wks): [] RSV vaccine (32-36wks): [] PP HPV vaccine counseling (<=26 yo): Comments Yes Encounters Date Type Department Care Team Description 11/19/2024 Telephone [facility] Medicine Obstetrics and Gynecology [facility] [place] [address] Krystal Paez 11/12/2024 Telephone 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 NIECY records are in [facility]. Most recent visit was 05/04/24. Last Filed Vital Signs Vital Sign Reading Time Taken Comments Blood Pressure 127/78 05/04/2024 12:34 PM ELECTRIC RANGE ASSEMBLER Pulse 82 05/04/2024 12:34 PM ELECTRIC RANGE ASSEMBLER Temperature - - Respiratory Rate - - Oxygen Saturation 98% 07/25/2023 11: 06 AM CDT Inhaled Oxygen Concentration - - Weight 65.7 kg (144 lb 12.8 oz) 025 12:34 PM ELECTRIC RANGE ASSEMBLER Height 167.6 cm (5' 6) 05/04/2024 12:3 4 PM ELECTRIC RANGE ASSEMBLER Body Mass Index 23.37 05/04/2024 12:34 PM ELECTRIC RANGE ASSEMBLER Plan of Treatment Health Maintenance Due Date [...] patient's age to complete this topic Insurance [facility] CHOICE [facility] H[facility]/PPO Address: [address] [address] [facility] CHOICE [facility] H[facility]/PPO Address: [facility] [address] [phone] Care Teams Special Effects Designer Relationship Specialty Start Date End Date No, Physician PCP - General 07/09/23 Anushka Bains MD [address] [place] [address] Obstetrics and Gynecology 02/10/24
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
--- OUTSIDE RECORDS SUMMARY | 2025-01-29 12:58 | XMS_ITS | Encounter Summary ---
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..] characteristic determined by the Dermatopathology Laboratory at [facility], directed by Dr. Paige Dobbs. These tests need not be, and therefore are not, approved by the [place] Food and Drug Administration. The tests are used for clinical purposes. Billing Codes Specimen Charges Stain Charges 46439 1 17947 52940 [id number] [id number] 1 1 1 1 4 3:28 PM CDT DERMATOPATHOLOGY LABORATORY Embedded Images 4 3:28 PM CDT DERMATOPATHOLOGY LABORATORY Pathology/Cytolog y TISSUE SPECIMEN FROM SKIN / Unknown 06/26/2023 06/28/2023 7:58 AM CDT Radha Baxter MD LAB - PATHOLOGY/CYTOLOGY ORDERAB LES Final Result DERMATOPATHOLOGY LABORATORY [facility] - Department of Dermatology [facility] Medicine [address] [place] [address], [address] [phone] documented in this encounter Visit Diagnoses Diagnosis Neoplasm of uncertain behavior of skin documented in this encounter Care Teams C++ Quant Developer Relationship Specialty Start Date End Date PcpKennedy-Fm PCP - General 10/05/22 documented as of this encounter
--- OUTSIDE RECORDS SUMMARY | 2025-01-29 12:58 | XMS_ITS | Encounter Summary ---
Author Organization [facility] Address [address] [place] [address] Care Team Providers Care Service Delivery Director Name Role Phone PcpKennedy Im-Fm Primary Care Provider Unavailable Reason for Visit * Reason Onset Date Comments Reschedule Appointment 11/12/2024 PT schedu led for 4 MFM related appts on 11/17/24, in need of kathi. all appts. Pls call to assist. Encounter Details Date Type Department Care Team (Late st Contact Info) Description 11/12/2024 Telephone [facility] [address] [place] [address] Lawson Castillo MD [address] [place] [address] Reschedule Appointment (PT scheduled for 4 MFM related appts on 11/17/24, in need of kathi. all appts. 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 all appts. Pls call to assist. documented in this encounter Plan of Treatment Not on file documented as of this encounter Visit Diagnoses Not on filedocumented in this encounter Care Teams Service Delivery Director Relationship Specialty Start Date End Date PcpKennedy Im-Fm PCP - General 10/05/22 documented as of this encounter
--- NOTE | 2025-01-29 14:11 | ED.ABDPAIN ---
HPI - Abdominal Pain General Chief Complaint: Abdominal Pain Stated Complaint: L. lower abdomen and back pain Time Seen by Provider: 01/29/25 14:11 Focused HPI: Patient is a 29-year-old female presents to the ER with a 2 day history of flu-like symptoms. She endorses left lower quadrant pain that radiates to her left flank. Patient reports her last bowel movement was yesterday and it was diarrhea. She reports she had a 7 weeks ago, but her incision looks good and her vaginal bleeding had subsided. Patient reports last night she noticed some dark brown vaginal bleeding. She reports yesterday she had a clogged duct in her left breast but she placed a hot pack on the breast and that has now subsided. Patient denies any medical history, preeclampsia, high blood pressure, or recent sick contacts. She does not take any daily medication. Patient denies any other urinary symptoms. GENERAL: Ill-appearing, well-nourished, and in no acute distress. HEAD: Normocephalic, atraumatic. CHEST: Clear to auscultation. ?No respiratory distress. HEART: Regular rate and rhythm.? NEURO: ?Alert and oriented x3. ABD: Tenderness in LLQ with palpation, + BS Patient screened in triage and initial orders placed.? ?Additional care and disposition to be based upon?diagnostic testing and treatment. Related Data Home Medications ?Medication ?Instructions ?Recorded ?Confirmed ?Last Taken ?Type vits no.126-ferrous fum 1 tablet PO DAILY 01/15/24 02/01/25 12/11/24 11:00 History 28 mg iron-folic acid 800 mcg tablet (Classic ) psyllium husk 0.4 gram capsule 0.4 g PO DAILY PRN constipation 09/03/24 02/01/25 12/10/24 09:00 History (Metamucil) Allergies Allergy/AdvReac Type Severity Reaction Status Date / Time No Known Allergies Allergy Verified 02/01/25 14:15 [facility] Past Medical History Medical History Overweight (BMI 25.0-29.9) and not yet delivered Gestational diabetes mellitus Abnormal glucose tolerance in Mar 30 2021 Surgical History Surgical History H/O dilation and curettage suction d&c 01/17/2024 History of surgery on arm History of gynecological procedure Nexplanon insertion removed 9 months later Family History Family History Grandparent Pancreatic cancer maternal Grandmother and maternal grandfather Father Hypertension Mother Diabetes mellitus Depression Social History Social History Smoking status: Never smoker Second hand tobacco smoke exposure: No Alcohol intake: former Alcohol use details: socially 15 per month Substance use: never Substance use type: does not use Do You Feel Safe in your Home?: Yes Lack of Transportation: No Lack of Food: Never True Current Housing: I Have Housing Concerned About Future Housing: No Difficulty Paying Gas/Electric Bills: No Difficulty Paying for Meds: No Currently Unemployed: No Education: Master's Degree or Higher Difficulty w/ Childcare or Family Care: No Living arrangements: with family Additional living arrangements comments: 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 Gender identity (if verbalized by the patient): Female Sexual Orientation (if Verbalized by the Patient): Straight or Heterosexual Spiritual care concerns: No Course Vital Signs Vital signs: Vital Signs Temperature 37.2 C 01/29/25 12:54 Pulse Rate 93 01/29/25 12:54 Respiratory Rate 16 01/29/25 12:54 Blood Pressure 158/96 H 01/29/25 12:54 Pulse Oximetry 99 01/29/25 12:54 Oxygen Delivery Room Air 01/29/25 12:54 Temperature 37.2 C 01/29/25 12:54 Pulse Rate 77 01/29/25 16:03 Respiratory Rate 14 01/29/25 16:03 Blood Pressure 132/81 01/29/25 16:03 Pulse Oximetry 100 01/29/25 16:03 Oxygen Delivery Room Air 01/29/25 12:54 MDM - Abdominal Pain Lab Data 01/29/25 15:11 01/29/25 15:11 Labs: Lab Results 01/29/25 01/29/25 01/29/25 Range/Units 15:11 15:11 15:59 WBC 6.7 (4.5-10.0) K/mm3 RBC 4.37 (4.2-5.4) M/mm3 Hgb 12.8 (12.0-15.0) g/dL Hct 37.4 (37.0-47.0) % MCV 85.6 (80-100) fl MCH 29.3 (26-34) pg MCHC 34.2 (32-36) g/dl RDW 11.5 (11.5-14.5) % Plt Count 159 D (150-375) k/mm3 MPV 9.0 (7.4-10.4) fl Immature Gran % (Auto) 0.3 (0-0.5) % Neut % (Auto) 67.9 (45.5-73.1) % Lymph % (Auto) 23.6 (18.3-44.2) % Duchesne % (Auto) 6.9 (2.6-8.5) % Eos % (Auto) 1.0 (0-4.4) % Baso % (Auto) 0.3 (0.2-1.2) % Lymph # (Auto) 1.58 (0.9-3.2) K/mm3 Duchesne # (Auto) 0.5 (0.1-0.6) K/mm3 Eos # (Auto) 0.1 (0-0.3) K/mm3 Baso # (Auto) 0.0 (0.0-0.1) K/mm3 Abs Immat Gran (auto) 0.02 (0.00-0.031) K/mm3 Absolute Neuts (auto) 4.5 (1.3-6.7) K/mm3 Absolute Nucleated RBC 0.000 (0.0-0.012) K/mm3 Nucleated RBC % 0.0 (0.0-0.2) % PT 15.4 H (11.1-14.7) Seconds INR 1.2 APTT 25.6 (22.3-36.8) Seconds Sodium 138 (137-145) mmol/L Potassium 3.9 (3.4-5.0) mmol/L Chloride 105 (98-107) mmol/L Carbon Dioxide 24 (22-30) mmol/L Anion Gap 9 (4-12) mmol/L BUN 13 (7-17) mg/dL Creatinine 0.79 (0.7-1.0) mg/dL Estim Creat Clear Calc 81 ml/min Estimated GFR > 60 (59 - ) Glucose 89 (65-110) mg/dL Lactic Acid 0.6 L (0.7-2.0) mmol/L Calcium 9.0 (8.4-10.2) mg/dL Magnesium 1.8 (1.6-2.3) mg/dL Total Bilirubin 1.2 (0.2-1.3) mg/dL AST 41 H (14-36) U/L ALT 62 H (6-35) U/L Alkaline Phosphatase 88 (38-126) U/L C-Reactive Protein < 0.5 Cancelled (<1.0) mg/dL Total Protein 7.2 (6.3-8.2) g/dL Albumin 4.6 (3.5-5.1) g/dL Lipase 57 (23-300) U/L Urine Color Yellow (Yellow) Urine Appearance Clear (Clear) Urine pH 6.0 (5.0-9.0) Ur Specific Paradox 1.015 (1.001-1.035) Urine Protein Negative (Negative) mg/dL Urine Glucose (UA) Negative (Negative) mg/dL Urine Ketones 3+ H (Negative) mg/dL Ur Blood (Man) Non-hemolyzed trace H (Negative) Urine Nitrate Negative (Negative) Urine Bilirubin Negative (Negative) Urine Urobilinogen 0.2 (<2.0) mg/dL Leukocyte Esterase Rfl 2+ H (Negative) ALEJANDRA/UL Urine RBC 0-2 (0-2) /hpf Urine WBC 11-20 H (0-3) /hpf Ur Squamous Epith Cells None seen (Few) /hpf Urine Bacteria None seen /hpf Urine Casts 0-2 POC Urine HCG, Qual (Negative) Influenza A (RT-PCR) Negative (Negative) Influenza B (RT-PCR) Negative (Negative) RSV (RT-PCR) Negative (Negative) SARS-CoV-2 RNA (RT-PCR) Negative (Negative) 01/29/25 Range/Units 16:03 WBC (4.5-10.0) K/mm3 RBC (4.2-5.4) M/mm3 Hgb (12.0-15.0) g/dL Hct (37.0-47.0) % MCV (80-100) fl MCH (26-34) pg MCHC (32-36) g/dl RDW (11.5-14.5) % Plt Count (150-375) k/mm3 MPV (7.4-10.4) fl Immature Gran % (Auto) (0-0.5) % Neut % (Auto) (45.5-73.1) % Lymph % (Auto) (18.3-44.2) % Duchesne % (Auto) (2.6-8.5) % Eos % (Auto) (0-4.4) % Baso % (Auto) (0.2-1.2) % Lymph # (Auto) (0.9-3.2) K/mm3 Duchesne # (Auto) (0.1-0.6) K/mm3 Eos # (Auto) (0-0.3) K/mm3 Baso # (Auto) (0.0-0.1) K/mm3 Abs Immat Gran (auto) (0.00-0.031) K/mm3 Absolute Neuts (auto) (1.3-6.7) K/mm3 Absolute Nucleated RBC (0.0-0.012) K/mm3 Nucleated RBC % (0.0-0.2) % PT (11.1-14.7) Seconds INR APTT (22.3-36.8) Seconds Sodium (137-145) mmol/L Potassium (3.4-5.0) mmol/L Chloride (98-107) mmol/L Carbon Dioxide (22-30) mmol/L Anion Gap (4-12) mmol/L BUN (7-17) mg/dL Creatinine (0.7-1.0) mg/dL Estim Creat Clear Calc ml/min Estimated GFR (59 - ) Glucose (65-110) mg/dL Lactic Acid (0.7-2.0) mmol/L Calcium (8.4-10.2) mg/dL Magnesium (1.6-2.3) mg/dL Total Bilirubin (0.2-1.3) mg/dL AST (14-36) U/L ALT (6-35) U/L Alkaline Phosphatase (38-126) U/L C-Reactive Protein (<1.0) mg/dL Total Protein (6.3-8.2) g/dL Albumin (3.5-5.1) g/dL Lipase (23-300) U/L Urine Color (Yellow) Urine Appearance (Clear) Urine pH (5.0-9.0) Ur Specific Paradox (1.001-1.035) Urine Protein (Negative) mg/dL Urine Glucose (UA) (Negative) mg/dL Urine Ketones (Negative) mg/dL Ur Blood (Man) (Negative) Urine Nitrate (Negative) Urine Bilirubin (Negative) Urine Urobilinogen (<2.0) mg/dL Leukocyte Esterase Rfl (Negative) ALEJANDRA/UL Urine RBC (0-2) /hpf Urine WBC (0-3) /hpf Ur Squamous Epith Cells (Few) /hpf Urine Bacteria /hpf Urine Casts POC Urine HCG, Qual Negative (Negative) Influenza A (RT-PCR) (Negative) Influenza B (RT-PCR) (Negative) RSV (RT-PCR) (Negative) SARS-CoV-2 RNA (RT-PCR) (Negative) Imaging Data Radiologist's impression: ITS Impressions Abdomen/Pelvis CT 01/29/25 16:22 IMPRESSION: 1. 10.2 x 8.6 cm posterior pelvic mass contiguous with the posterior uterine body may represent large exophytic fibroid. Other neoplastic intrapelvic processes are not excluded. Correlation with pelvic ultrasound recommended. 2. Mild wall thickening of the urinary bladder possibly due to nondistention. Correlate with urinalysis. Pelvis Ultrasound 01/29/25 17:25 Impression: Large complex pelvic mass detailed possibly a large pedunculated fibroid however distinction from an ovarian origin is limited. Neoplasm is not excluded. Contrast-enhanced MRI is recommended Discharge Plan Discharge Clinical Impression: Pelvic mass Patient Disposition: Home Condition: Improved Instructions: Pelvic Pain in Women (ED) Additional Instructions: Return if symptoms are worsening , call your OBGYN on Saturday for MRI schedule , take ibuprofen as as needed for aches and pain, continue home medications. Patient Language: Angolan Prescriptions: New hydrocodone-acetaminophen 5-325 mg tablet 1 tablet PO Q6H Qty: 20 0RF No Action psyllium husk [Metamucil] 0.4 gram capsule 0.4 g PO DAILY PRN (Reason: constipation) Classic 28 mg iron- 800 mcg tablet 1 tablet PO DAILY docusate sodium 100 mg Capsule 100 mg PO BID Qty: 90 0RF ibuprofen 600 mg Tablet 600 mg PO Q6HR Qty: 40 0RF acetaminophen 500 mg Tablet 1,000 mg PO Q6HR Qty: 60 0RF Follow-up/Referrals: Anushka Bains MD [Physician, STEM SIZER] - 02/01/25 PHYSICIAN,PLASTIC PRODUCTS SALES REPRESENTATIVE [Primary Care Provider, Internal Medicine]
--- NOTE | 2025-01-29 14:34 | PC.NURSE ---
patient is pumping at this time, will medicate, obtain lab work and iv access once patient is available.
--- NOTE | 2025-01-29 14:55 | ED_ITS ---
HPI - Abdominal Pain General Chief Complaint: Abdominal Pain Stated Complaint: L. lower abdomen and back pain Time Seen by Provider: 01/29/25 14:11 Source: patient Mode of arrival: ambulatory History of Present Illness HPI narrative: 29 years old white female came to the ED with her from home by private car complaining of left lower quadrant throbbing pain radiating to left lower back started yesterday p.m., steady, 8/10, worse with moving, probably better without moving. Associated with chills and body aches and nausea. She denies any vomiting or diarrhea or fever. Patient report not eating since yesterday noon because of the nausea. Patient is status post section 7 weeks ago. Denied any unusual vaginal discharge compared to the past. She denies upper respiratory symptoms or unusual vaginal discharge. Patient main complaint at this time is left lower quadrant pain. Patient currently on vitamins, denied smoking or drinking or using drugs. Patient is 1 para 1 0 Related Data Home Medications ?Medication ?Instructions ?Recorded ?Confirmed ?Last Taken ?Type vits no.126-ferrous fum 1 tablet PO DAILY 09/0101/11/25 12/11/24 11:00 History 28 mg iron-folic acid 800 mcg tablet (Classic ) psyllium husk 0.4 gram capsule 0.4 g PO DAILY PRN cons tipation 09/03/24 12/11/24 12/10/24 09:00 History (Metamucil) Allergies Allergy/AdvReac Type Severity Reaction Status Date / Time No Known Allergies Allergy Verified 01/11/25 09:35 Review of Systems 2 Review of Systems: All systems reviewed & are unremarkable except as noted in HPI and below PMFSH Past Medical History Medical History Overweight (BMI 25.0-29.9) and not yet delivered Gestational diabetes mellitus Abnormal glucose tolerance in Mar 30 2021 Surgical History Surgical History H/O dilation and curettage suction d&c 01/17/2024 History of surgery on arm History of gynecological procedure Nexplanon insertion removed 9 months later Family History Family History Grandparent Pancreatic cancer maternal Grandmother and maternal grandfather Father Hypertension Mother Diabetes mellitus Depression Social History Social History Smoking status: Never smoker Second hand tobacco smoke exposure: No Alcohol intake: former Alcohol use details: socially 15 per month Substance use: never Substance use type: does not use Do You Feel Safe in your Home?: Yes Lack of Transportation: No Lack of Food: Never True Current Housing: I Have Housing Concerned About Future Housing: No Difficulty Paying Gas/Electric Bills: No Difficulty Paying for Meds: No Currently Unemployed: No Education: Master's Degree or Higher Difficulty w/ Childcare or Family Care: No Living arrangements: with family Additional living arrangements comments: 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 Gender identity (if verbalized by the patient): Female Sexual Orientation (if Verbalized by the Patient): Straight or Heterosexual Spiritual care concerns: No Exam 2 Narrative: General appearance: Well-developed, well-nourished Skin: Normal color Head: Normocephalic, nontraumatic Eyes: Clear conjunctiva ENT: Oropharynx normal, ears normal, nose normal Neck: Supple, nontender Chest and respiratory: Airway patent, no respiratory distress, no accessory muscle use Heart: Regular rate/rhythm Abdomen: Soft, left lower quadrant tenderness, no guarding or rebound, no organomegaly, quiet bowel sounds Vascular: Normal peripheral pulses, normal capillary refill. 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 is normal as tested, no gross motor deficit Course Consultations Consultation #1: DR TRINY TEAGUE CALL OBGYN SATURDAY FOR MRI SCHEDULE Date: 01/29/25 Vital Signs Vital signs: Vital Signs Temperature 37.2 C 01/29/25 12:54 Pulse Rate 93 01/29/25 12:54 Respiratory Rate 16 01/29/25 12:54 Blood Pressure 158/96 H 01/29/25 12:54 Pulse Oximetry 99 01/29/25 12:54 Oxygen Delivery Room Air 01/29/25 12:54 Temperature 37.2 C 01/29/25 12:54 Pulse Rate 77 01/29/25 16:03 Respiratory Rate 14 01/29/25 16:03 Blood Pressure 132/81 01/29/25 16:03 Pulse Oximetry 100 01/29/25 16:03 Oxygen Delivery Room Air 01/29/25 12:54 MDM - Abdominal Pain MDM Narrative Medical decision making narrative: Left lower quadrant pain status post section 7 weeks ago Vital signs showing blood pressure 158/96 otherwise within normal limit Physical examination showing diffuse tenderness left lower quadrant without guarding or rebound and tenderness lower back. Differential diagnosis include musculoskeletal pain secondary to new baby and in not sleeping well lately, urinary tract infection, kidney stone, constipation, ovarian cyst Blood workup today includes CBC, CMP, lipase showed URINALYSIS SHOWED NO ACUTE ABNORMALITY CT abdomen and pelvis with IV contrast showed LEFT PELVIC MASS PELVIC ULTRASOUND SHOWED LEFT PELVIC MASS, RECOMMEND MRI FOR FURTHER EVALUATION DIAGNOSIS LEFT PELVIC MASS DISCHARGE HOME ON NORMT THE PT WAS DISCHARGED TO HOME.THE PT,S CONDITION UPON DISCHARGE WAS FAIR,EDUCATION WAS PROVIDED TO THE PT IN REFERENCE TO THE FINAL IMPRESSION,DISCHARGE STUDY RESULTS,TREATMENT,PROGNOSIS AND NEED FOR FOLLOW UP . Differential Diagnosis Differential diagnosis: Likely other (As above) Medical Records Attestation: I reviewed the patient's medical records. Lab Data Attestation: I reviewed the patient's lab results. 01/29/25 15:11 01/29/25 15:11 Labs: Lab Results 01/29/25 01/29/25 01/29/25 Range/Units 15:11 15:11 15:59 WBC 6.7 (4.5-10.0) K/mm3 RBC 4.37 (4.2-5.4) M/mm3 Hgb 12.8 (12.0-15.0) g/dL Hct 37.4 (37.0-47.0) % MCV 85.6 (80-100) fl MCH 29.3 (26-34) pg MCHC 34.2 (32-36) g/dl RDW 11.5 (11.5-14.5) % Plt Count 159 D (150-375) k/mm3 MPV 9.0 (7.4-10.4) fl Immature Gran % (Auto) 0.3 (0-0.5) % Neut % (Auto) 67.9 (45.5-73.1) % Lymph % (Auto) 23.6 (18.3-44.2) % Gilliam % (Auto) 6.9 (2.6-8.5) % Eos % (Auto) 1.0 (0-4.4) % Baso % (Auto) 0.3 (0.2-1.2) % Lymph # (Auto) 1.58 (0.9-3.2) K/mm3 Gilliam # (Auto) 0.5 (0.1-0.6) K/mm3 Eos # (Auto) 0.1 (0-0.3) K/mm3 Baso # (Auto) 0.0 (0.0-0.1) K/mm3 Abs Immat Gran (auto) 0.02 (0.00-0.031) K/mm3 Absolute Neuts (auto) 4.5 (1.3-6.7) K/mm3 Absolute Nucleated RBC 0.000 (0.0-0.012) K/mm3 Nucleated RBC % 0.0 (0.0-0.2) % PT 15.4 H (11.1-14.7) Seconds INR 1.2 APTT 25.6 (22.3-36.8) Seconds Sodium 138 (137-145) mmol/L Potassium 3.9 (3.4-5.0) mmol/L Chloride 105 (98-107) mmol/L Carbon Dioxide 24 (22-30) mmol/L Anion Gap 9 (4-12) mmol/L BUN 13 (7-17) mg/dL Creatinine 0.79 (0.7-1.0) mg/dL Estim Creat Clear Calc 81 ml/min Estimated GFR > 60 (59 - ) Glucose 89 (65-110) mg/dL Lactic Acid 0.6 L (0.7-2.0) mmol/L Calcium 9.0 (8.4-10.2) mg/dL Magnesium 1.8 (1.6-2.3) mg/dL Total Bilirubin 1.2 (0.2-1.3) mg/dL AST 41 H (14-36) U/L ALT 62 H (6-35) U/L Alkaline Phosphatase 88 (38-126) U/L C-Reactive Protein < 0.5 Cancelled (<1.0) mg/dL Total Protein 7.2 (6.3-8.2) g/dL Albumin 4.6 (3.5-5.1) g/dL Lipase 57 (23-300) U/L Urine Color Yellow (Yellow) Urine Appearance Clear (Clear) Urine pH 6.0 (5.0-9.0) Ur Specific Matthews 1.015 (1.001-1.035) Urine Protein Negative (Negative) mg/dL Urine Glucose (UA) Negative (Negative) mg/dL Urine Ketones 3+ H (Negative) mg/dL Ur Blood (Man) Non-hemolyzed trace H (Negative) Urine Nitrate Negative (Negative) Urine Bilirubin Negative (Negative) Urine Urobilinogen 0.2 (<2.0) mg/dL Leukocyte Esterase Rfl 2+ H (Negative) ALEJANDRA/UL Urine RBC 0-2 (0-2) /hpf Urine WBC 11-20 H (0-3) /hpf Ur Squamous Epith Cells None seen (Few) /hpf Urine Bacteria None seen /hpf Urine Casts 0-2 Influenza A (RT-PCR) Negative (Negative) Influenza B (RT-PCR) Negative (Negative) RSV (RT-PCR) Negative (Negative) SARS-CoV-2 RNA (RT-PCR) Negative (Negative) Imaging Data Radiologist's impression: ITS Impressions Abdomen/Pelvis CT 01/29/25 16:22 IMPRESSION: 1. 10.2 x 8.6 cm posterior pelvic mass contiguous with the posterior uterine body may represent large exophytic fibroid. Other neoplastic intrapelvic processes are not excluded. Correlation with pelvic ultrasound recommended. 2. Mild wall thickening of the urinary bladder possibly due to nondistention. Correlate with urinalysis. Pelvis Ultrasound 01/29/25 17:25 Impression: Large complex pelvic mass detailed possibly a large pedunculated fibroid however distinction from an ovarian origin is limited. Neoplasm is not excluded. Contrast-enhanced MRI is recommended Critical Care Time Critical Care Time Critical Care Time: Yes Total Critical Care Time: 30 Discharge Plan Discharge Clinical Impression: Pelvic mass Patient Disposition: Home Condition: Improved Instructions: Pelvic Pain in Women (ED) Additional Instructions: Return if symptoms are worsening , call your OBGYN on Saturday for MRI schedule , take ibuprofen as as needed for aches and pain, continue home medications. Patient Language: Kyrgyz Prescriptions: New hydrocodone-acetaminophen 5-325 mg tablet 1 tablet PO Q6H Qty: 20 0RF No Action psyllium husk [Metamucil] 0.4 gram capsule 0.4 g PO DAILY PRN (Reason: constipation) Classic 28 mg iron- 800 mcg tablet 1 tablet PO DAILY docusate sodium 100 mg Capsule 100 mg PO BID Qty: 90 0RF ibuprofen 600 mg Tablet 600 mg PO Q6HR Qty: 40 0RF acetaminophen 500 mg Tablet 1,000 mg PO Q6HR Qty: 60 0RF Follow-up/Referrals: Anushka Bains MD [Physician, INTERNAL GRINDER] - 02/01/25 PHYSICIAN,WOOD FUEL PELLETIZER [Primary Care Provider, Internal Medicine]
[2025-01-29 15:21] LABS: Hematocrit 37.4 % (37.0-47.0); Hemoglobin 12.8 g/dL (12.0-15.0); Immature Granulocyte Percent A 0.3 % (0-0.5); Lymphocytes Absolute Auto 1.58 K/mm3 (0.9-3.2); Mean Corpuscular HGB Conc 34.2 g/dl (32-36); Mean Corpuscular Hemoglobin 29.3 pg (26-34); Mean Corpuscular Volume 85.6 fl (80-100); Nucleated Red Blood Cells Absolute Auto 0.000 K/mm3 (0.0-0.012); Nucleated Red Blood Cells Perc 0.0 % (0.0-0.2); Platelet Count Result 159 k/mm3 (150-375); Red Blood Count 4.37 M/mm3 (4.2-5.4); White Blood Count 6.7 K/mm3 (4.5-10.0)
[2025-01-29] MEDS: ACETAMINOPHEN 500 MG TABLET 1000 MG PO (15:27)
[2025-01-29] MEDS: SODIUM CHLORIDE 0.9% IV 1,000 ML 999 ML IV CONT (15:28)
[2025-01-29 15:34] LABS: INR 1.2; Prothrombin Time 15.4 Seconds (11.1-14.7)
[2025-01-29 15:35] LABS: Partial Thromboplastin Time 25.6 Seconds (22.3-36.8)
[2025-01-29 15:42] LABS: Alanine Aminotransferase 62 U/L (6-35); Albumin Level 4.6 g/dL (3.5-5.1); Alkaline Phosphatase 88 U/L (38-126); Anion Gap 9 mmol/L (4-12); Aspartate Amino Transferase 41 U/L (14-36); Bilirubin,Total 1.2 mg/dL (0.2-1.3); Blood Urea Nitrogen 13 mg/dL (7-17); CRP < 0.5 mg/dL (<1.0); Calcium 9.0 mg/dL (8.4-10.2); Carbon Dioxide 24 mmol/L (22-30); Chloride 105 mmol/L (98-107); Estimated CRCL calculation 81 ml/min; Estimated Glomerular Filt Rate > 60; Glucose 89 mg/dL (65-110); Lipase 57 U/L (23-300); Magnesium 1.8 mg/dL (1.6-2.3); Potassium 3.9 mmol/L (3.4-5.0); Sodium 138 mmol/L (137-145); Total Protein 7.2 g/dL (6.3-8.2)
--- OUTSIDE RECORDS SUMMARY | 2025-01-29 15:50 | XMS_ITS | Encounter Summary ---
Author Organization [facility] Address [address] [place] [address] Care Team Providers Care Perinatology Physician Name Role Phone PcpKennedy Im-Fm Primary Care Provider Unavailable Reason for Visit * Reason Onset Date Comments Reschedule Appointment 11/12/2024 PT schedu led for 4 MFM related appts on 11/17/24, in need of kathi. all appts. Pls call to assist. 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
--- OUTSIDE RECORDS SUMMARY | 2025-01-29 15:50 | XMS_ITS | Clinical Summary ---
Author Organization [facility] Address [address] [place] [address] Care Team Providers Care Bilingual Recruiter Name Role Phone No, Physician Primary Care Provider [phone] Anushka Bains MD Unavailable [phone] Allergies No known active allergies Medications No known medications Active Problems Problem Noted Date Diagnosed Date Gestational diabetes mellitus (GDM) in [facility] 11/16/2024 Supervision of high-risk , [facility] 11/16/2024 Overview (11/18/2024): [] OB consult only, [x] Co-management vs. [] Full M Care; [] Red Team [] Blue Team Referring Provider: Anushka Bains [phone] [] or Medicare Insurance [x] Dating Criteria: [...] [] MOC: [] Method of feeding: [] Net Mvc Developer (specifically which provider): [] PP Depression Discussed: [] PP visits scheduled: Vaccines [] Flu Shot (Nov-Feb): [] COVID vaccine: [] Tdap (27-36wks): [] RSV vaccine (32-36wks): [] PP HPV vaccine counseling (<=26 yo): Comments Yes Encounters Date Type Department Care Team Description 11/19/2024 Telephone [facility] Medicine Obstetrics and Gynecology Count includes the [facility] [place] [address] Krystal Paez 11/12/2024 Telephone [facility] Medicine Maternal- Medicine [address] [facility] 7th [address] [place] [address] Radha Quan CMA Scheduling US/OBC [...] on file Legal Sex 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 Gender Identity Not on file Sexual Orientation [...] Comments Blood Pressure 127/78 05/04/2024 12:34 PM FASHION STYLIST Pulse 82 05/04/2024 12:34 PM FASHION STYLIST Temperature - - Respiratory Rate - - Oxygen Saturation 98% 07/25/2023 11: 06 AM CDT Inhaled Oxygen Concentration - - Weight 65.7 kg (144 lb 12.8 oz) 025 12:34 PM FASHION STYLIST Height 167.6 cm (5' 6) 05/04/2024 12:3 4 PM FASHION STYLIST Body Mass Index 23.37 05/04/2024 12:34 PM FASHION STYLIST Plan of Treatment Health Maintenance Due Date [...] patient's age to complete this topic Insurance [facility] CHO[facility] HMO/PPO Address: [address] [address] [facility] CHOICE PLUS [facility] H[facility]/PPO Address: [facility] [address] [phone] Care Teams Bilingual Recruiter Relationship Specialty Start Date End Date No, Physician PCP - General 07/09/23 Anushka Bains MD [address] [place] [address] Obstetrics and Gynecology 02/10/24
--- OUTSIDE RECORDS SUMMARY | 2025-01-29 15:50 | XMS_ITS | Encounter Summary ---
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 Gender Identity Not on file Sexual Orientation Not on file documented as of this encounter Plan of Treatment Not on file documented as of this encounter Procedures Procedure Name Priority Date/Time Associated Diagnosis Comments DERMATOPATHOLOGY Routine 06/26/2023 12:0 0 AM CDT Neoplasm of uncertain behavior of skin documented in this encounter Results * DERMATOPATHOLOGY (06/26/2023 12:00 AM CDT) Case Report Dermatopathology Report Case: [id number] Authorizing Provider: Radha Baxter MD Collected: 06/26/2023 12:00 AM Ordering Location: [facility] - Received: 06/28/2023 07:58 AM DermPath [...] characteristic determined by the Dermatopathology Laboratory at [facility], directed by Dr. Paige Dobbs. These tests need not be, and therefore are not, approved by the [place] Food and Drug Administration. The tests are used for clinical purposes. Billing Codes Specimen Charges Stain Charges 26658 1 99907 97596 26438 74552 1 1 1 1 4 3:28 PM CDT DERMATOPATHOLOGY LABORATORY Embedded Images 4 3:28 PM CDT DERMATOPATHOLOGY LABORATORY Pathology/Cytolog y TISSUE SPECIMEN FROM SKIN / Unknown 06/26/2023 06/28/2023 7:58 AM CDT Radha Baxter MD LAB - PATHOLOGY/CYTOLOGY ORDERAB LES Final Result DERMATOPATHOLOGY LABORATORY [facility] - Department of Dermatology [facility] Medicine [address] [place] [address], [address]rd [address] [phone] documented in this encounter Visit Diagnoses Diagnosis Neoplasm of uncertain behavior of skin documented in this encounter Care Teams Lean Manufacturing Coordinator Relationship Specialty Start Date End Date PcpKennedy-Fm PCP - General 10/05/22 documented as of this encounter
--- OUTSIDE RECORDS SUMMARY | 2025-01-29 15:50 | XMS_ITS | Clinical Summary ---
Author Organization [facility] Address [address] [place] [address] Care Team Providers Care Database Developer Name Role Phone PcpKennedy Im-Fm Primary Care Provider Unavailable Source Comments [facility],non-owned Affiliates and Associated Physician Practices is amultiple site organization consisting of ambulatory clinics and hospital sitesin [place], [place], [place] and [place]. This disclosure is being madepursuant to the Care Everywhere program and may not contain all information available regarding this patient. Last updated 17.[facility] Allergies No known active allergies Medications * [...] Type Department Care Team Description 11/27/2024 [facility]phone [facility] - SERVICE DIRECTOR [address] [place] [phone]/LD Diabetes Focus Follow-up 11/25/2024 Telephone [facility] Maternal & Care [address] [place], [place] [phone] Rebecca Sharma RN Follow-up (Called patient at the request of [facility] to make patient's growth ultrasound appt in 3 weeks since [place] office is easier for patient. ) 11/17/2024 10:00 AM CDT [facility] [address] [place] [address]/LD Insulin controlled gestational diabetes mellitus (GDM) in third trimester (HCC) (Primary Dx) 11/17/2024 9:00 AM CDT [facility] SERVICE DIRECT[facility] [address] [place] [address] Alberto Albright MD GA: [id number] 11/17/2024 7:27 AM CDT - 11/17/2024 11:59 PM CDT Hospital Encounter [facility] MATERNAL/ EVALUATION UNIT [address] [place], [place] [id number] Tatianna Morales MD Discharge Disposition: Home or Self Care 11/17/2024 7:25 AM CDT - 11/17/2024 7:26 AM CDT Hospital Encounter [facility] MATERNAL/ EVALUATION UNIT [address] [place], [place] [id number] Tatianna Morales MD Discharge Disposition: Home or Self Care 11/17/2024 Travel 11/12/2024 Telephone [facility] - SERVICE DIRECTOR [address] [place] [address] Lawson Castillo MD Reschedule Appointment (PT scheduled for 4 MFM related appts on 11/17/24, in need of kathi. all appts. Pls call to assist.) 11/11/2024 Telephone [facility] - SERVICE DIRECTOR [address] [place] [address] Alberto Albright MD Appointment; Care [...] Recorded Patient Health Questionnaire-2 Score 0 05/11/2023 [place] Depression Scale Answer Date Recorded [place] Depression Scale Total 0 11/17/2024 The thought of harming myself has occurred to me . Never 11/17/2024 Education Answer Date Recorded What is the highest level of school you have completed or the highest degree you have received? 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 Not on file Not on file Last Filed Vital Signs Vital Sign Reading Time Taken Comments Blood Pressure 112/70 11/17/2024 9:32 AM CDT Pulse 73 11/17/2024 8:44 AM CDT Temperature 37.3 C (99.1 F) 03/29/2021 8:22 AM BUILDING SERVICE WORKER Respiratory Rate 18 03/29/2021 8:22 AM BUILDING SERVICE WORKER Oxygen Saturation 100% 03/29/2021 8:22 AM BUILDING SERVICE WORKER Inhaled Oxygen Concentration - - Weight 78 [...] (AMB) [facility] (11/17/2024 10:44 AM CDT) Specific [place] UA 1.[address] [facility] [address] pH [...] [facility] [address] [place] [address], [facility] [phone] * HEMOGLOBIN A1C - POINT OF CARE (AMB) [facility] (11/17/2024 9:50 AM CDT) Hemoglobin A1c POCT 5.2 % [facility] [address] BLOOD SPECIMEN / Unknown 11/17/2024 9:50 AM CDT us Alberto Albright MD LAB - POINT OF CARE OR DERABLES Final Result [facility] [address] [place] [address], [facility] [phone] * Sonogram - Complete (11/17/2024 8:03 AM CDT) Linked Results Indication ======== Gestational diabetes mellitus in , unspecified control anatomy evaluation Suspected excessive growth Family history of Down syndrome History ====== OB History 3. Para 0 [id number] Lab Tests Test Date Result NIPT Low [...] 7 lb 8 oz EFW by [facility] ([id number]) Head / Face / Neck Biometry: Nasal [...] Heart / Thorax 4-chamber view. LVOT view. 5-gycqvs-tpvrscs view. Aortic arch view. Ductal arch view. [...] as otherwise at the discretion of the [facility] physician seeing the patient today for an office visit to follow today's ultrasound. Reassess growth in 3 weeks. Coding ====== Diagnoses Z84.89: Family history of other specified conditions Z36.3: Encounter for screening for malformations Z82.79: Family history of other congenital malformations, deformations and chromosomal abnormalities O36.63X0: Maternal care for excessive growth O24.419: Gestational diabetes mellitus in , unspecified control Procedures 70608: US Preg Uterus Detailed 21131: Biophysical Profile W [facility] Newser PACS Anatomical Region Laterality Modality Other 11/17/2024 8:03 AM CDT Anushka Bains MD [facility] ORDERABLES Edited Result - Final from Last 3 Months Insurance [facility] SELF PAY NO INSURANCE Member Subscriber Plan / Payer (Ef fective for All Dates) Name:Nuvia Armenta Member ID:Not on file Relation to Subscriber:Not on file Name:NUVIA WHITE Subscriber ID:Not on file (Home) Address: [address] [place] [id number] Payer ID:Not on file Group ID:Not on file Type:Self Pay Address: [place], [place] [facility] Member Subscriber Plan / Payer (Ef fective 2022-Present) Name:Nuvia Armenta Relation to Subscriber:Self Name:Nuvia Armenta Payer ID:[id number] ([facility]) Type:HMO Address: [address] SELF PAY NO INSURANCE Care Teams Database Developer Relationship Specialty Start Date End Date Kennedy Dejesus-Fm PCP - General 10/05/22
[2025-01-29] MEDS: KETOROLAC 30 MG/ML VIAL (*BKC) IV PUSH (15:57)
[2025-01-29 16:03] VITALS: BP 132/81; PULSE 77; RESP 14; O2SAT 100
[2025-01-29 16:04] LABS: Influenza A QL RT-PCR Negative (Negative); Influenza B QL RT-PCR Negative (Negative); RSV RNA, RT-PCR Negative (Negative); SARS-CoV-2 RNA PCR Negative (Negative)
[2025-01-29 16:12] LABS: Add Urine Microscopic? YES; Appearance Urine Clear (Clear); Glucose Urine UA Negative (Negative); Leukocyte Esterase Ur 2+ LEU/UL (Negative); Nitrate Urine Negative (Negative); Non Pathogenic Casts 0-2; Specific Grav Ur 1.015 (1.001-1.035)
[2025-02-01 11:46] LABS: BEDSIDEPREGUCG Negative (Negative)
== END 2025-01-29 19:45 | disposition home or self-care (01) ==
PROVIDERS: Registered Nurse; Emergency Provider Emergency Medicine
DX: R19.00 Intra-abdominal and pelvic swelling, mass and lump, unspecified site (principal); Z20.822 Contact with and (suspected) exposure to COVID-19
CPT/HCPCS: 36415; 74177; 76857; 80053; 81001; 81025; 83605; 83690; 83735; 85025; 85610; 85730; 86140; 87086; 87637; 96361; 96374; 99284; A9270; J1885; J7030; Q9967

== ENCOUNTER 2025-02-02 01:27 | Day surgery (SDC) | payer OTHER, SELFPAY ==
--- OUTSIDE RECORDS SUMMARY | 2004-01-11 18:00 | XMS_ITS | Continuity of Care Document ---
Author Organization [employer] Address [address] [place] [address] Phone Care Team Providers Care Broach Setter Name Role Phone Meredith GARCIAS, Boyd Stubbs Unavaildeb centeno Results Test Name Date and Time Measure Units Reference Range Abnormal Flag Status Comments Panel Description: CBC w/diff Unknown WHITE BLOOD CELL COUNT 00:00:00 12.2 THOUS/MCL N Unknown RED BLOOD CELL COUNT 00:00:00 4.65 MILL/MCL N Unknown HEMOGLOBIN 00:00:00 13.5 G/DL N Unknown HEMATOCRIT 00:00:00 38.8 % N Unknown MCV 00:00:00 83.4 FL N Unknown MCH 00:00:00 29.1 PG N Unknown MCHC 00:00:00 34.9 G/DL N Unknown RDW 00:00:00 12.5 % N Unknown PLATELET COUNT 00:00:00 214 THOUS/MCL N Unknown NEUTROPHILS 00:00:00 72.1 % N Unknown ABSOLUTE NEUTROPHILS 00:00:00 8796 CELLS/MCL H Unknown LYMPHOCYTES 00:00:00 19.8 % N Unknown MONOCYTES 00:00:00 6.8 % N Unknown ABSOLUTE MONOCYTES 00:00:00 830 CELLS/MCL N Unknown EOSINOPHILS 00:00:00 1.0 % N Unknown ABSOLUTE EOSINOPHILS 00:00:00 122 CELLS/MCL N Unknown BASOPHILS 00:00:00 0.3 % N Unknown ABSOLUTE BASOPHILS 00:00:00 37 CELLS/MCL N Unknown ABSOLUTE LYMPHOCYTES 00:00:00 2416 CELLS/MCL N Unknown Advance Directives Directive Yes / No Effective Date File Name No Information Encounters Encounter Description Practice Location Reason(s) For Visit Diagnoses Date Provider Providers Copied on Encounter [facility], [address], [place], [place], [id number], tel:[phone] James Bloom No Information Meredith Boyd. [address], [address], [place], [place], [address]. tel:[phone] Family History Family Member Type Diagnosis Age At Onset No Information Payers Payer name Insurance type Covered green party ID Authoriza tion(s) No Information Social History Type Description Quantity Date Captured Comments Sex Female Smoking Status No Information Chief Complaint And Reason For Visit No Information Reason For Referral Reason For Referral No Information History Of Present Illness Encounter Date Complaint History Of Prese nt Illness No Information Functional Status Date Functional Assessmen t No Information Instructions Date Instruction Additional Infor mation No Information Assessments Type Assessment Date No Information Patient Care Teams Name Effective Dates (start - stop) Status Members No Information
--- OUTSIDE RECORDS SUMMARY | 2025-01-31 09:12 | XMS_ITS | Encounter Summary ---
Author Organization [facility] Address [address] [place] [address] Care Team Providers Care Electrician Yard Name Role Phone Pcp, Kennedy Bustillo Im-Fm Primary Care Provider Unavailable Reason for Visit * Reason Comments Pain Abdominal 7 weeks f ollowing , reports left lower abdominal pain. Sent from outside hospital for possible uterine mass on CT scan. +nausea Encounter Details Date Type Department Care Team (Late st Contact Info) Description 01/31/2025 9:12 AM PHARMACY SALES REPRESENTATIVE - 01/31/2025 7:10 PM PHARMACY SALES REPRESENTATIVE Emergency ER at [facility] [address] [place] [id number] Donovan Cheung MD [address] [place] [id number] Uterine leiomyoma, unspecified location (Primary Dx); LLQ pain Discharge Disposition: Home or Self Care Social History Tobacco Use Types Packs/Day Years Used Date Smoking Tobacco: Never Smokeless Tobacco: Never Alcohol Use Standard Drinks/Week Comments No 0 (1 standard drink = 0.6 oz pur e alcohol) PHQ-2 Answer Date Recorded Patient Health Questionnaire-2 Score 0 05/11/2023 [place] Depression Scale Answer Date Recorded [place] Depression Scale Total 0 11/17/2024 The thought of harming myself has occurred to me . Never 11/17/2024 Education Answer Date Recorded What is the highest level of school you have completed or the highest degree you have received? 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 Not on file Not on file documented as of this encounter Last Filed Vital Signs Vital Sign Reading Time Taken Comments Blood Pressure 126/86 01/31/2025 7:01 PM PHARMACY SALES REPRESENTATIVE Pulse 101 01/31/2025 7:00 PM PHARMACY SALES REPRESENTATIVE Temperature 37.2 C (99 F) 01/31/2025 9:10 AM PHARMACY SALES REPRESENTATIVE Respiratory Rate 18 01/31/2025 9:10 AM PHARMACY SALES REPRESENTATIVE Oxygen Saturation 94% 01/31/2025 7:00 PM PHARMACY SALES REPRESENTATIVE Inhaled Oxygen Concentration - - Weight 62.6 kg (138 lb) 01/31/2025 9:17 AM PHARMACY SALES REPRESENTATIVE Height 165.1 cm (5' 5) 01/31/2025 9:17 AM PHARMACY SALES REPRESENTATIVE Body Mass Index 22.96 01/31/2025 9:17 AM PHARMACY SALES REPRESENTATIVE documented in this encounter Functional Status documented as of this encounter Discharge Instructions * Discharge Instructions* Donovan Cheung MD - 01/31/2025 7:02 PM PHARMACY SALES REPRESENTATIVE Please take the prescribed pain medications as needed and follow up with your test puller in the outpatient setting as soon as possible for further evaluation of your pain and imaging findings. MACY SALES REPRESENTATIVE MACY SALES REPRESENTATIVE documented in this encounter Medications at Time of Discharge Blood Glucose Monitoring Suppl (True Metrix Meter) w/Device KIT USE TO TEST BLOOD SUGARS FOUR TIMES DAILY 10/28/2024 Cetirizine HCl (ZYRTEC ALLERGY PO) FreeStyle Rick 2 Plus Sensor MISC 10/27/2024 Lantus vial ADMINISTER 10 UNITS UNDER THE SKIN EVERY EVENING 10/29/2024 loratadine (CLARITIN) 10 MG tablet Take 10 mg by mouth once daily mupirocin (Bactroban) 2 % ointment Apply to affected area 3 times daily 22 g 05/11/2023 oxyCODONE, immediate release, (Roxicodone) 5 MG tabletIndications :Uterine leiomyoma, unspecified location Take 1 (one) tablet by mouth every 6 hours as needed for pain 12 tablet 01/31/2025 Vit-DSS-Fe Fum-FA ( vitamin with iron) tablet Take 1 (one) tablet by mouth once daily True Metrix Blood Glucose Test test strip USE TO TEST BLOOD SUGARS FOUR TIMES DAILY 10/28/2024 documented as of this encounter H&P Notes * Eli Wood MD - 01/31/2025 10:48 AM CST PGY-2 FAMILY AND MARRIAGE COUNSELLOR ED H&P CC: Chief Complaint Patient presents with Pain Abdominal 7 weeks following , reports left lower abdominal pain. Sent from outside hospital for possible uterine mass on CT scan. +nausea HPI: Xiomara Armenta is a 29 year old female here for left lower quadrant pain with radiation to the back, 7 weeks out from section. Was seen at [facility] on 01/29 to address pain concerns. At that time, imaging consistent with likely large fibroid uterus (10 x 8 cm). Patient has prior fibroid noted on sonogram 04/2024, no mention of size. Was discharged with plan to follow-up with primary Firefighter on Thursday 02/01 and for outpatient MRI. Patient reports continuing to LLQ pain that is debilitating. Pain is positional, worse when she sits up and improved laying down on one side. Has some nausea from the severity of pain but no episodesof emesis, has been able to tolerate some PO intake. Had an isolated episode of diarrhea on but otherwise regular bowel movements. Denies dysuria, fevers, chills, abnormal vaginal discharge. 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 INSPECTOR SHUTTLE: with [facility] (current provider on maternity leave) Review of Symptoms: Comprehensive review of systems was negative except as stated above FAMILY AND MARRIAGE COUNSELLOR history: Menses: has not resumed since Cervical Procedures: suction D&C 01/2024 for missed AB STDs: Denies gonorrhea, chlamydia, trichomonas, HIV, herpes, syphilis Obstetrical history OB History Para Term AB Living 3 2 SAB IAB Ectopic Multiple Live Births 1 1 # Outcome Date GA Lbr Ranjeet/2nd Weight Sex Type Anes PTL Lv 3 Current 2 IAB 1 SAB Medical History: Past Medical History[1] Surgeries: Past Surgical History[2] Allergies: Allergies[3] Curent Medications: Medications Ordered Prior to Encounter[4] Soc Hx: Social History Smoking status: Never Smokeless tobacco: Never Alcohol use: No Drug use: No Sexual activity: Yes Partners with: Male control/protection: None Family History: family history includes Asthma in her sister; Diabetes in her mother; Heart Disease in her mother; Hypertension in her father; Other - Cardiac in her maternal grandmother. Physical Exam: Patient Vitals for the past 6 hrs: Temp Pulse Resp BP BP Method 01/31/25 1200 -- 76 -- 128/79 -- 01/31/25 1130 -- 86 -- 122/71 -- 01/31/25 1100 -- 79 -- 121/72 -- 01/31/25 1030 -- 80 -- 118/76 -- 01/31/25 0910 99 ??F (37.2 ??C) 84 18 114/70 Automatic BP Readings from Last 3 Encounters: 01/31/25 128/79 11/17/24 115/74 11/17/24 112/70 General: alert and oriented, cooperative, no distress, well appearing Heart: regular rate and rhythm, S1, S2 normal, no murmur, click, rub or gallop Lungs: clear to auscultation bilaterally Abdomen: normal to inspection, non-distended, soft, tenderness reproducible to palpation of LLQ Incision: normal appearing, clean/dry/intact Extremities: normal, non-tender bilaterally, no edema Neuro: grossly normal Skin: no rash or abnormalities Bimanual: no cervical motion tenderness, large mass palpated from posterior fornix Labs/Imaging: Hospital Encounter on 01/31/25 CBC W AUTO DIFFERENTIAL Result Value Ref Range WBC 12.3 (H) 4.0 - 10.7 x10E9/L RBC Count 4.01 3.90 - 5.20 x10E12/L Hemoglobin 11.9 11.9 - 15.8 g/dL Hematocrit 34.7 (L) 34.8 - 46.1 % MCV 86.5 80.0 - 98.0 fL MCH 29.7 26.7 - 33.6 pg MCHC 34.3 31.7 - 36.3 g/dL RDW-CV 11.4 11.3 - 14.8 % Platelet Count 164 150 - 420 x10E9/L MPV 8.8 7.8 - 11.4 fL Neutrophil % 84.6 (H) 41.0 - 74.0 % Lymphocyte % 7.7 (L) 17.0 - 47.0 % Monocyte % 7.2 3.0 - 11.0 % Eosinophil % 0.0 0.0 - 7.0 % Basophil % 0.2 0.0 - 1.6 % Immature Granulocytes % 0.3 0.0 - 1.0 % Neutrophil Absolute 10.41 (H) 1.60 - 7.50 x10E9/L Lymphocyte Absolute 0.95 (L) 1.00 - 4.40 x10E9/L Monocyte Absolute 0.89 0.15 - 1.00 x10E9/L Eosinophil Absolute 0.00 0.00 - 0.60 x10E9/L Basophil Absolute 0.02 0.00 - 0.13 x10E9/L COMPREHENSIVE METABOLIC PANEL Result Value Ref Range Glucose 86 70 - 99 mg/dL Sodium 140 136 - 145 mmol/L Potassium 4.0 3.5 - 5.1 mmol/L Chloride 105 98 - 107 mmol/L CO2 22 22 - 29 mmol/L Calcium 9.1 8.4 - 10.4 mg/dL Anion Gap 13 6 - 16 mmol/L BUN 12 5.3 - 18.7 mg/dL Creatinine 0.76 0.50 - 1.00 mg/dL Alkaline Phosphatase 74 40 - 150 U/L ALT 41 6 - 57 U/L AST 23 10 - 48 U/L Protein Total 7.2 6.4 - 8.3 gm/dL Albumin 4.3 3.1 - 4.5 gm/dL Bilirubin Total 1.1 0.2 - 1.2 mg/dL eGFR by CKD-EPI >90 >=90 mL/min/1.73 m2 URINALYSIS REFLEX TO MICROSCOPIC NO CULTURE Specimen: Urine Clean Catch Result Value Ref Range Color UA Yellow Yellow, Straw Clarity UA Clear Clear Glucose UA Normal Normal Bilirubin UA Negative Negative Ketone UA 4+ (Abnormal) Negative Specific Sedley UA 1.028 1.005 - 1.030 Blood UA 2+ (Abnormal) Negative pH UA 5.5 5.0 - 8.0 Protein UA 1+ (Abnormal) Negative Urobilinogen UA Normal Normal mg/dL Nitrite UA Negative Negative Leukocyte Esterase UA Negative Negative RBC UA 6-10 (Abnormal) 0 - 5 # /hpf WBC UA 0-5 0 - 5 # /hpf Bacteria UA None Seen None Seen Squamous Epithelial Cells 0-2 0 - 5 /hpf Mucus UA 1+ /LPF HCG BETA BLOOD QUANTITATIVE Result Value Ref Range hCG Quantitative <2.42 mIU/mL No results found. Abdomen/Pelvis CT 01/29/25 16:22 IMPRESSION: 1. 10.2 x 8.6 cm posterior pelvic mass contiguous with the posterior uterine body may represent large exophytic fibroid. Other neoplastic intrapelvic processes are not excluded. Correlation with pelvic ultrasound recommended. 2. Mild wall thickening of the urinary bladder possibly due to nondistention. Correlate with urinalysis. Pelvis Ultrasound 01/29/25 17:25 Impression: Large complex pelvic mass detailed possibly a large pedunculated fibroid however distinction from an ovarian origin is limited. Neoplasm is not excluded. Contrast-enhanced MRI is recommended TVUS 01/31/25 IMPRESSION: 1. Normal uterus and right ovary. 2. 6 cm left pelvic mass abutting the uterus. Uncertain if this arises from the adnexa or is perhaps a pedunculated fibroid. The left ovary is not clearly identified Assessment/Plan: Xiomara Armenta 29 year old year-old here for LLQ pain, about 7 weeks post-operative from a section at [facility]. LLQ Pain Fibroid Uterus - Patient presents with LLQ pain since with radiation towards her back, is now 7 weeks post-operative from her section at [facility] - Patient seen at [facility] 01/29; per ED provider, imaging consistent with possibly large 10x8cm pedunculated fibroid in posterior uterus, recommended follow-up outpatient 02/01 with outpatient MRI - Sonogram (-) per CE: likely pedunculated uterine myoma on the left - Since 01/29, patient has complained of worsening and ongoing pain that feels like cramping, rated10/10, worse with sitting up and , managed with Oxycodone at home with limited relief - Vital signs stable, afebrile - On exam, mild LLQ pain reproducible with palpation, no rebound or guarding, soft; on bimanual, fundus difficult to appreciate, large palpable mass in posterior fornix - Labs - WBC 12.3 - Hgb 11.9 - Electrolytes WNL - Cr 0.76 - UA low concern for UTI - TVUS: 6cm L pelvic mass abutting uterus, unclear if from adnexa or pedunculated fibroid, poorly perfused on Doppler, L ovary not clearly identified - CTAP: 13cm pelvic mass-like density of uncertain etiology, possibly non-acute hematoma versus fibroid versus origination from left ovary (fibroma) Plan - Patient discussed with trauma call attending (Dr. Dwyer); given size of mass, ovarian torsion is less likely though differential includes large ovarian mass versus fibroid; recommendation at this time is for outpatient follow-up for surgical management - Recommend pain control with Ibuprofen/Tylenol with Oxycodone for breakthrough pain - Will attempt PO regimen (Oxycodone 5mg, Ibuprofen 600mg) now in ED to assess pain control; if manageable, can discharge to home with close follow-up at [place] Dispo: pending pain management, transfer of care to Dr. Wood at change of shift Follow-up with [facility] (Firefighter) at earliest convenience Discussed with Yuliya Turcios, and Joshua Segura MD 01/31/2025 12:47 PM PGY2 Addendum Received checkout from Dr. Segura with instruction to assess patient's pain with PO medication. At time of reassessment, patient had already discharged from the Emergency Department prior to her one hour reassessment. Per ED provider, patient reported improvement in her pain with PO regimen and desired discharge home. She was discharged with oxycodone rx and based on patient preference was given instruction to follow up with her primary Cartridge Assembling Machine Adjuster. Notified Dr. Nolan and Dr. Lewis of patient's discharge from ED. Eli Wood MD 01/31/2025 11:38 PM [1] Past Medical History: Diagnosis Date Gestational diabetes (HCC) Seasonal allergies [2] Past Surgical History: Procedure Laterality Date Tympanostomy [3] No Known Allergies [4] No current facility-administered medications on file prior to encounter. Current Outpatient Medications on File Prior to Encounter Medication Sig Dispense Refill Blood Glucose Monitoring Suppl (True Metrix Meter) w/Device KIT USE TO TEST BLOOD SUGARS FOUR TIMESDAILY Cetirizine HCl (ZYRTEC ALLERGY PO) (Patient not taking: Reported on 11/17/2024) FreeStyle Rick 2 Plus Sensor MISC Lantus vial ADMINISTER 10 UNITS UNDER THE SKIN EVERY EVENING (Patient taking differently: 12 (twelve) Units at bedtime) loratadine (CLARITIN) 10 MG tablet Take 10 mg by mouth once daily mupirocin (Bactroban) 2 % ointment Apply to affected area 3 times daily (Patient not taking: Reported on 11/17/2024) 22 g 0 Vit-DSS-Fe Fum-FA ( vitamin with iron) tablet Take 1 (one) tablet by mouth once daily True Metrix Blood Glucose Test test strip USE TO TEST BLOOD SUGARS FOUR TIMES DAILY Cosigned by Long Lewis MD at 02/01/2025 6:57 AM PHARMACY SALES REPRESENTATIVE MACY SALES REPRESENTATIVE MACY SALES REPRESENTATIVE MACY SALES REPRESENTATIVE MACY SALES REPRESENTATIVE Associated attestation - Long Lewis MD - 02/01/2025 6:57 AM PHARMACY SALES REPRESENTATIVE Attending Attestation: I have seen and examined the patient with the resident and I agree with the findings and plan of care as documented by the resident. Patient is a 29 year old woman who presents with abdominopelvic pain. She is 7 weeks s/p .She has previously had imaging findings suggestive of a fibroid. Given her presenting symptoms and ultrasound, we had initially discussed the possibility of a diagnostic laparoscopy for better evaluation and to rule out torsion, but ultimately her CT scan was more suggestive of a large abdominopelvic mass that would likely require a more involved surgical procedure. We had planned to offer inpatient admission for pain control and discussion of potentially adding her on for a surgery, but she subsequently reported improved pain and elected to discharge from the ED with close follow-up with herprimary. Date of Service: 01/31/25 Long Lewis MD documented in this encounter ED Notes * Domingo Palumbo RN - 01/31/2025 7:09 PM CST Discharge instructions reviewed, IV removed with pressure dressing applied, medication schedule reviewed for home pain management. Ambulated with steady gait with . MACY SALES REPRESENTATIVE * Domingo Palumbo RN - 01/31/2025 4:28 PM CST Was pumping when CT transport came to get pt, CT contacted at this time alerting that pt is done with pumping and ready for scan MACY SALES REPRESENTATIVE * Lynette Johnson RN - 01/31/2025 10:23 AM CST Pt said pain med helped her feel relaxed but did not make the pain go away MACY SALES REPRESENTATIVE * Donovan Cheung MD - 01/31/2025 10:19 AM CST EMERGENCY MEDICINE NOTE History Chief Complaint Patient presents with Pain Abdominal 7 weeks following , reports left lower abdominal pain. Sent from outside hospital for possible uterine mass on CT scan. +nausea HPI 29 year old female presents to ED For evaluation of left lower quadrant abdominal pain that radiates to her left lower back which started on . Pain is constant, otherwise nonradiating. Does have some associated nausea. Notably patient is 7 weeks out from a , no previous complications from the surgery. Patient was seen on 01/29 at [place], had CT and ultrasound imaging performed showing the below impressions: Abdomen/Pelvis CT 01/29/25 16:22 IMPRESSION: 1. 10.2 x 8.6 cm posterior pelvic mass contiguous with the posterior uterine body may represent large exophytic fibroid. Other neoplastic intrapelvic processes are not excluded. Correlation with pelvic ultrasound recommended. 2. Mild wall thickening of the urinary bladder possibly due to nondistention. Correlate with urinalysis. Pelvis Ultrasound 01/29/25 17:25 Impression: Large complex pelvic mass detailed possibly a large pedunculated fibroid howeverdistinction from anovarian origin is limited. Neoplasm is not excluded. Contrast-enhanced MRI is recommended Outside/External Records/Independent history: chart review Review of systems per HPI Physical Exam BP 126/86 Pulse 101 Temp 99 ??F (37.2 ??C) (Oral) Resp 18 Ht 1.651 m (5' 5) Wt 62.6 kg (138 lb) SpO2 94% Physical Exam Constitutional: Well developed, well nourished, in NAD Eyes: Sclera normal, EOMI, PERRL HEENT: normocephalic, moist mucous membranes, no nasal discharge Neck: supple, non-tender, no lymphadenopathy Pulmonary: CTAB, no wheezing/rhonhci/rales Cardiovascular: RRR, no murmurs rubs or gallops Abdomen: soft, non distended, no guarding, non-tender Extremities/MSK: no swelling, peripheral pulses intact, normal ROM Neuro: alert and oriented x3 Pulse Oximetry: Saturation: 95% Oxygen Delivery: Room Air Interpretation: No hypoxia at this time Rhythm Strip Interpretation (independent interpretation by Paige Cheung MD): Normal Sinus Rhythm, no arrhythmia Ventricular Rate: 84 Independent radiologic interpretation: Per my independent interpretation, mass near the uterus present as seen on previous imaging Radiologist preliminary interpretation: CT Abdomen Pelvis W Contrast Final Result PROCEDURE: CT ABDOMEN PELVIS W CONTRAST DATE/TIME OF EXAM: 01/31/2025 4:44 PM CLINICAL INFORMATION: None relevant/not provided if blank. Indication: R10.32: LLQ pain Additional History: Abnormal ultrasound. COMPARISON: Report only from recent outside facility CT and ultrasound TECHNIQUE: CT of the abdomen and pelvis was performed following intravenous contrast utilizing standard protocol. CT dose reduction technique was used, including Automated Exposure Control. CONTRAST: IOPAMIDOL 76 % IV SOLN:85 mL FINDINGS: The lung bases are clear and free of effusion. The heart size is normal. Liver size and enhancement is normal. The portal and hepatic veins are patent. The gallbladder is unremarkable and there is no dilatation of the biliary tree or common duct. The pancreas and pancreatic duct are normal. The spleen is normal. Adrenal glands and kidneys are normal. The abdominal aorta and IVC are unremarkable. There is no retroperitoneal or iliac chain adenopathy. The distal esophagus is decompressed. The stomach and duodenum are normal. Small bowel is normal. The terminal ileum is normal. The appendix is not clearly seen but there is no pericecal inflammation. Scattered stool in the proximal colon. The more distal colon is empty. The uterus is normal in size and the endometrium is unremarkable. However in the left posterior pelvis there is a large mass with slightly lobulated margins and slightly heterogeneous internal density or enhancement. Overall the mass measures 13 x 7.2 x 7.8 cm. Internal density measures 71 HU. It is not entirely clear if this density measurement reflects enhancement or is due to intrinsic density such as from blood clot. The mass abuts the uterus but has slightly different enhancement characteristics. There is no visible attachment to the uterus but given the broad contact, an attachment is not ruled out. Small low-density free fluid in the pelvis and in the paracolic gutters. Follicles are noted in the right ovary. The left ovary is not identified separate from the mass. The urinary bladder is normal. No significant bony findings. IMPRESSION: 1. 13 cm pelvic masslike density of uncertain etiology. Considerations include a nonacute hematoma versus neoplastic mass, possibly arising from the left ovary (for example fibroma). A pedunculated fibroid is also a possibility. MRI could further evaluate as clinically indicated 2. There is no adenopathy. 3. Small free fluid. > Interpreting Provider: James Chandler MD on 01/31/2025 5:05 PM US Pelvis W Transvag W Dop Non Ob Final Result PROCEDURE: US PELVIS W TRANSVAG W DOP NON OB DATE/TIME OF EXAM: 01/31/2025 12:58 PM CLINICAL INFORMATION: None relevant/not provided if blank. Indication: R10.32: LLQ pain Additional History: 3 days left lower quadrant pain radiating to lower back. 7 weeks post section. COMPARISON: Report only obstetrical ultrasound from 11/17/2024. Also report conclusions from [facility] CT and ultrasound from January 29. TECHNIQUE: Real time transabdominal and transvaginal pelvic ultrasound was performed by the tower hand with DICOM image capture. Grayscale images were obtained; additionally, Color Doppler and pulse wave Spectral Doppler interrogation was performed and interpreted. FINDINGS: The uterus measures 8.4 x 3.6 x 5.0 cm. Myometrium is normal. The endometrium measures 10 mm which is normal for age. No fluid collection. The right ovary measures 3.7 x 2.1 x 2.7 cm and is unremarkable and normally perfused as seen on color Doppler with spectral analysis. In the left pelvis there is a complex predominantly solid somewhat lobulated mass measuring 6.2 x 6.4 x 4.9 cm. The mass abuts the uterus. It is not entirely clear if this lesion is separate from the uterus or is an exophytic/pedunculated fibroid. The mass is poorly perfused as seen on color Doppler with spectral waveform. The left ovary/adnexa is not clearly identified. No free fluid. The urinary bladder is unremarkable. IMPRESSION: 1. Normal uterus and right ovary. 2. 6 cm left pelvic mass abutting the uterus. Uncertain if this arises from the adnexa or is perhaps a pedunculated fibroid. The left ovary is not clearly identified > Interpreting Provider: James Chandler MD on 01/31/2025 1:27 PM I have personally reviewed and agree with the radiologist interpretation. Defer to radiologist final report. MDM Problem: Left lower quadrant pain, mass seen on outside hospital imaging DDX: Fibroid versus malignancy versus infection versus metabolic derangement versus electrolyte abnormality versus postoperative complication vs other Plan: -labs -symptom control -reassess ED Course Clinical Impressions as of 01/31/252023 LLQ pain Uterine leiomyoma, unspecified location Summary: Patient is a 29-year-old female presenting with left lower quadrant, left flank pain over last few days. History and physical concerning for the above differential diagnoses. Laboratory evaluation showed a mild leukocytosis, no anemia, normal platelet count. CMP showing no large metabolic or electrolyte derangement, normal renal function. UA shows no acute signs of infection. HCG negative. Patient was discussed with gynecology service for your requested ultrasound and CT imaging be performed again as we are unable to see the outside hospital imaging and to rule out torsion. Imaging showed again the previously seen mass in or around the uterus. Patient evaluated by gynecology and as her symptoms were improved by IV and p.o.narcotic pain medications, able to be discharged with outpatient follow up with her pallet stone positioner for further evaluation of mass. Patient family comfortable with this plan, will discharge with close follow up and prescription for oxycodone. Labs Reviewed CBC W AUTO DIFFERENTIAL - Abnormal; Notable for the following components: Result Value WBC 12.3 (*) Hematocrit 34.7 (*) Neutrophil % 84.6 (*) Lymphocyte % 7.7 (*) Neutrophil Absolute 10.41 (*) Lymphocyte Absolute 0.95 (*) All other components within normal limits URINALYSIS REFLEX TO MICROSCOPIC NO CULTURE - Abnormal; Notable for the following components: Ketone UA 4+ (*) Blood UA 2+ (*) Protein UA 1+ (*) RBC UA 6-10 (*) All other components within normal limits COMPREHENSIVE METABOLIC PANEL - Normal HCG BETA BLOOD QUANTITATIVE Narrative: hCG Reference Range, mIU/mL: Non Females 0-6.0 Perimenopausal Females ages 41-55* 0-7.7 Postmenopausal Females age >55* 0-14 Females, Weeks after Last Menstrual Period 0.2-1 week 5-50 1 - 2 weeks 50-500 2 - 3 weeks 100-5000 3 - 4 weeks 500-10,000 4 - 5 weeks 1000-50,000 5 - 6 weeks 10,000-100,000 6 - 8 weeks 15,000-200,000 2 - 3 months 10,000-100,000 Trophoblastic Disease >100,000 *In higher than expected hCG in females > age 40, a serum FSH >20 IU/L makes unlikely. Medications given in ED: Yes Medications prescribed: Yes Revised home medications: No Social determinants of health: No Limiting social determinants of health: None. Amount and/or Complexity of Data Reviewed medical complexity: Triage notes and available nursing notes reviewed , Clinical lab tests: orderedand reviewed, Tests in the radiology section of CPT??: ordered and independent interpretation, Independent visualization of images: yes, Review and summarize past medical records: yes , and Discuss the patient with other providers: yes -I have reviewed the diagnostic findings with the patient and they have had an opportunity to ask me any questions they have about care, diagnosis and discharge plan. The patient is comfortable with the discharge plan. Given my typical return precautions for Uterine mass/fibroid to the patient verbally.They will follow up as directed and will return to the ER if their condition worsens or if theydevelop other urgent concerns. Procedures ED Final Diagnosis and Discharge information 1. Uterine leiomyoma, unspecified location 2. LLQ pain Disposition Discharge Jens Cheung MD [employer] SALES REPRESENTATIVE * Wanda Lares, LUG BREAKER AND WIRE PULLER-PLUCK SEPARATOR - 01/31/2025 9:12 AM CST ..Medical Screening Examination - Provider Note CC: Pain Abdominal (7 weeks following , reports left lower abdominal pain. Sentfrom outside hospital for possible uterine mass on CT scan. +nausea) Provider in Triage HPI: Xiomara Armenta is a 29 year old female who presents to ED with lower leftabdominal pain. She states that she had a 7 weeks ago and was at [place] [facility] on Saturday and was diagnosed with something out of her uterus on CT and Ultrasound. She presents to the ER with worsening abdominal pain, +diarrhea, -vomiting. Review of Systems: Primary System Noted in HPI Constitutional: No fevers or chills Psychiatric: No mood changes Limited Chart History: Past Medical History[1] Past Surgical History[2] Medications[3] Allergies[4] PCP: KENNEDY BUSTILLO [facility] (Above may be pending completion) VS: BP 114/70 (BP Location: Right arm, Patient Position: Sitting) Pulse 84 Temp 99 ??F (37.2 ??C) (Oral) Resp 18 Ht 1.651 m (5' 5) Wt 62.6 kg (138 lb) SpO2 95% Pertinent Physical Findings: Constitutional: vitals stable, WDWN Head: Head normocephalic, atraumatic Eyes: conjunctiva clear ENT: no rhinorrhea Neck: neck supple, no nuchal rigidity Respiratory: respirations even and unlabored, lungs clear bilaterally Cardiovascular: Heart RRR, no m/c/r/g Abdomen: nondistended, LLQ pain with palpation Skin: warm, dry Musculoskeletal: no obvious deformity Neuro: A&o x 3, CN 2-12 grossly intact bilaterally Psychiatric: Normal affect, tearful MDM: I have reviewed all lab and imaging ordered and resulted at the time of this note. Triage notes andavailable nursing notes reviewed. Pertinent previous medical record reviewed. Management options include but not limited to: physical exam, laboratory testing, discussion with other providers. IMPRESSION: Final diagnoses: LLQ pain DIAGNOSTICS ORDERED: Orders Placed This Encounter CT ABDOMEN PELVIS W CONTRAST CBC W AUTO DIFFERENTIAL COMPREHENSIVE METABOLIC PANEL URINALYSIS REFLEX TO MICROSCOPIC NO CULTURE AND Linked Order Group 0.9% NaCl injection 3 mL 0.9% NaCl injection 1-10 mL fentaNYL (PF) (Sublimaze) injection 50 mcg This is a medical screening assessment for the patient's initial workup. Patient encouraged to stayfor the entire duration of their workup. Another ED provider will re-assess the patient, order additional workup if necessary, and determine disposition. This note was created with dictation software, please excuse any typographical errors. Wanda [facility] 01/31/2025 [1] Past Medical History: Diagnosis Date Gestational diabetes (HCC) Seasonal allergies [2] Past Surgical History: Procedure Laterality Date Tympanostomy [3] Current Facility-Administered Medications Medication Dose Route Frequency Provider Last Rate Last Admin 0.9% NaCl injection 3 mL 3 mL Intracatheter q8h Cabrera Candelaria DO And 0.9% NaCl injection 1-10 mL 1-10 mL Intracatheter PRN Cabrera Candelaria DO fentaNYL (PF) (Sublimaze) injection 50 mcg 50 mcg Intravenous q30 min PRN Cabrera Candelaria DO Current Outpatient Medications Medication Sig Dispense Refill Blood Glucose Monitoring Suppl (True Metrix Meter) w/Device KIT USE TO TEST BLOOD SUGARS FOUR TIMESDAILY Cetirizine HCl (ZYRTEC ALLERGY PO) (Patient not taking: Reported on 11/17/2024) FreeStyle Rick 2 Plus Sensor MISC Lantus vial ADMINISTER 10 UNITS UNDER THE SKIN EVERY EVENING (Patient taking differently: 12 (twelve) Units at bedtime) loratadine (CLARITIN) 10 MG tablet Take 10 mg by mouth once daily mupirocin (Bactroban) 2 % ointment Apply to affected area 3 times daily (Patient not taking: Reported on 11/17/2024) 22 g 0 Vit-DSS-Fe Fum-FA ( vitamin with iron) tablet Take 1 (one) tablet by mouth once daily True Metrix Blood Glucose Test test strip USE TO TEST BLOOD SUGARS FOUR TIMES DAILY [4] No Known Allergies Cosigned by Cabrera Candelaria DO at 01/31/2025 2:17 PM PHARMACY SALES REPRESENTATIVE MACY SALES REPRESENTATIVE [employer] SALES REPRESENTATIVE documented in this encounter Plan of Treatment Not on file documented as of this encounter Procedures Procedure Name Priority Date/Time Associated Diagnosis Comments CT ABDOMEN PELVIS W CONTRAST STAT 01/31/2025 4:43 PM PHARMACY SALES REPRESENTATIVE LLQ pain US PELVIS W TRANSVAG W DOP NON OB STAT 01/31/2025 12:58 PM PHARMACY SALES REPRESENTATIVE LLQ pain URINALYSIS REFLEX TO MICROSCOPIC NO CULTURE STAT 01/31/2025 9:38 AM PHARMACY SALES REPRESENTATIVE CBC W AUTO DIFFERENTIAL STAT 01/31/2025 9:37 AM PHARMACY SALES REPRESENTATIVE COMPREHENSIVE METABOLIC PANEL STAT 01/31/2025 9:37 AM PHARMACY SALES REPRESENTATIVE HCG BETA BLOOD QUANTITATIVE STAT 01/31/2025 9:37 AM PHARMACY SALES REPRESENTATIVE documented in this encounter Results * CT Abdomen Pelvis W Contrast (01/31/2025 4:43 PM PHARMACY SALES REPRESENTATIVE) Anatomical Region Laterality Modality Abdomen, Pelvis Computed Tomogra phy 01/31/2025 4:56 PM PHARMACY SALES REPRESENTATIVE Impressions 01/31/2025 5:05 PM PHARMACY SALES REPRESENTATIVE IMPRESSION: 1. 13 cm pelvic masslike density of uncertain etiology. Considerations include a nonacute hematoma versus neoplastic mass, possibly arising from the left ovary (for example fibroma). A pedunculated fibroid is also a possibility. MRI could further evaluate as clinically indicated 2. There is no adenopathy. 3. Small free fluid. > Interpreting Provider: James Chandler MD on 01/31/2025 5:05 PM Narrative 01/31/2025 5:05 PM PHARMACY SALES REPRESENTATIVE PROCEDURE: CT ABDOMEN PELVIS W CONTRAST DATE/TIME OF EXAM: 01/31/2025 4:44 PM CLINICAL INFORMATION: None relevant/not provided if blank. Indication: R10.32: LLQ pain Additional History: Abnormal ultrasound. COMPARISON: Report only from recent outside facility CT and ultrasound TECHNIQUE: CT of the abdomen and pelvis was performed following intravenous contrast utilizing standard protocol. CT dose reduction technique was used, including Automated Exposure Control. CONTRAST: IOPAMIDOL 76 % IV SOLN:85 mL FINDINGS: The lung bases are clear and free of effusion. The heart size is normal. Liver size and enhancement is normal. The portal and hepatic veins are patent. The gallbladder is unremarkable and there is no dilatation of the biliary tree or common duct. The pancreas and pancreatic duct are normal. The spleen is normal. Adrenal glands and kidneys are normal. The abdominal aorta and IVC are unremarkable. There is no retroperitoneal or iliac chain adenopathy. The distal esophagus is decompressed. The stomach and duodenum are normal. Small bowel is normal. The terminal ileum is normal. The appendix is not clearly seen but there is no pericecal inflammation. Scattered stool in the proximal colon. The more distal colon is empty. The uterus is normal in size and the endometrium is unremarkable. However in the left posterior pelvis there is a large mass with slightly lobulated margins and slightly heterogeneous internal density or enhancement. Overall the mass measures 13 x 7.2 x 7.8 cm. Internal density measures 71 HU. It is not entirely clear if this density measurement reflects enhancement or is due to intrinsic density such as from blood clot. The mass abuts the uterus but has slightly different enhancement characteristics. There is no visible attachment to the uterus but given the broad contact, an attachment is not ruled out. Small low-density free fluid in the pelvis and in the paracolic gutters. Follicles are noted in the right ovary. The left ovary is not identified separate from the mass. The urinary bladder is normal. No significant bony findings. Procedure Note James Chandler MD - 01/31/2025 PROCEDURE: CT ABDOMEN PELVIS W CONTRAST DATE/TIME OF EXAM: 01/31/2025 4:44 PM CLINICAL INFORMATION: None relevant/not provided if blank. Indication: R10.32: LLQ pain Additional History: Abnormal ultrasound. COMPARISON: Report only from recent outside facility CT and ultrasound TECHNIQUE: CT of the abdomen and pelvis was performed following intravenouscontrast utilizing standard protocol. CT dose reduction technique was used, including Automated ExposureControl. CONTRAST: IOPAMIDOL 76 % IV SOLN:85 mL FINDINGS: The lung bases are clear and free of effusion. The heart size isnormal. Liver size and enhancement is normal. The portal and hepatic veins are patent. The gallbladder is unremarkable and there is no dilatation ofthe biliary tree or common duct. The pancreas and pancreatic duct are normal. The spleen is normal. Adrenal glands and kidneys are normal. The abdominal aorta and IVC are unremarkable. There is no retroperitonealor iliac chain adenopathy. The distal esophagus is decompressed. The stomach and duodenum arenormal. Small bowel is normal. The terminal ileum is normal. The appendix isnot clearly seen but there is no pericecal inflammation. Scattered stool in the proximal colon. The more distal colon is empty. The uterus is normal in size and the endometrium is unremarkable.However in the left posterior pelvis there is a large mass with slightlylobulated margins and slightly heterogeneous internal density or enhancement. Overall the mass measures 13 x 7.2 x 7.8 cm. Internal density [id number] HU. It is not entirely clear if this density measurement reflects enhancement or is due to intrinsic density such as from blood clot. The mass abuts the uterus but has slightly different enhancement characteristics. There is no visible attachment to the uterus but given the broad contact, an attachment is not ruled out. Small low-densityfree fluid in the pelvis and in the paracolic gutters. Follicles are noted in the right ovary. The left ovary is notidentified separate from the mass. The urinary bladder is normal. No significant bony findings. IMPRESSION: 1. 13 cm pelvic masslike density of uncertain etiology. Considerations include a nonacute hematoma versus neoplastic mass, possibly arisingfrom the left ovary (for example fibroma). A pedunculated fibroid is also a possibility. MRI could further evaluate as clinically indicated 2. There is no adenopathy. 3. Small free fluid. > Interpreting Provider: James Chandler MD on 01/31/2025 5:05 PM us Donovan Cheung MD CT ORDERABLES Final Resul t * US Pelvis W Transvag W Dop Non Ob (01/31/2025 12:58 PM PHARMACY SALES REPRESENTATIVE) Anatomical Region Laterality Modality Pelvis Ultrasound 01/31/2025 1:13 PM PHARMACY SALES REPRESENTATIVE Impressions 01/31/2025 1:27 PM PHARMACY SALES REPRESENTATIVE IMPRESSION: 1. Normal uterus and right ovary. 2. 6 cm left pelvic mass abutting the uterus. Uncertain if this arises from the adnexa or is perhaps a pedunculated fibroid. The left ovary is not clearly identified > Interpreting Provider: James Chandler MD on 01/31/2025 1:27 PM Narrative 01/31/2025 1:27 PM PHARMACY SALES REPRESENTATIVE PROCEDURE: US PELVIS W TRANSVAG W DOP NON OB DATE/TIME OF EXAM: 01/31/2025 12:58 PM CLINICAL INFORMATION: None relevant/not provided if blank. Indication: R10.32: LLQ pain Additional History: 3 days left lower quadrant pain radiating to lower back. 7 weeks post section. COMPARISON: Report only obstetrical ultrasound from 11/17/2024. Also report conclusions from [facility] CT and ultrasound from January 29. TECHNIQUE: Real time transabdominal and transvaginal pelvic ultrasound was performed by the tower hand with DICOM image capture. Grayscale images were obtained; additionally, Color Doppler and pulse wave Spectral Doppler interrogation was performed and interpreted. FINDINGS: The uterus measures 8.4 x 3.6 x 5.0 cm. Myometrium is normal. The endometrium measures 10 mm which is normal for age. No fluid collection. The right ovary measures 3.7 x 2.1 x 2.7 cm and is unremarkable and normally perfused as seen on color Doppler with spectral analysis. In the left pelvis there is a complex predominantly solid somewhat lobulated mass measuring 6.2 x 6.4 x 4.9 cm. The mass abuts the uterus. It is not entirely clear if this lesion is separate from the uterus or is an exophytic/pedunculated fibroid. The mass is poorly perfused as seen on color Doppler with spectral waveform. The left ovary/adnexa is not clearly identified. No free fluid. The urinary bladder is unremarkable. Procedure Note James Chandler MD - 01/31/2025 PROCEDURE: US PELVIS W TRANSVAG W DOP NON OB DATE/TIME OF EXAM: 01/31/2025 12:58 PM CLINICAL INFORMATION: None relevant/not provided if blank. Indication: R10.32: LLQ pain Additional History: 3 days left lower quadrant pain radiating to lower back. 7 weeks post section. COMPARISON: Report only obstetrical ultrasound from 11/17/2024. Also reportconclusions from [facility] CT and ultrasound from January 29. TECHNIQUE: Real time transabdominal and transvaginal pelvic ultrasound wasperformed by the tower hand with DICOM image capture. Grayscale images were obtained; additionally, Color Doppler and pulse wave Spectral Doppler interrogation was performed and interpreted. FINDINGS: The uterus measures 8.4 x 3.6 x 5.0 cm. Myometrium is normal. The endometrium measures 10 mm which is normal for age. No fluidcollection. The right ovary measures 3.7 x 2.1 x 2.7 cm and is unremarkable and normally perfused as seen on color Doppler with spectral analysis. In the left pelvis there is a complex predominantly solid somewhat lobulated mass measuring 6.2 x 6.4 x 4.9 cm. The mass abuts the uterus. It is not entirely clear if this lesion is separate from the uterus tom an exophytic/pedunculated fibroid. The mass is poorly perfused as seenon color Doppler with spectral waveform. The left ovary/adnexa is notclearly identified. No free fluid. The urinary bladder is unremarkable. IMPRESSION: 1. Normal uterus and right ovary. 2. 6 cm left pelvic mass abutting the uterus. Uncertain if this arises from the adnexa or is perhaps a pedunculated fibroid. The left ovary is not clearly identified > Interpreting Provider: James Chandler MD on 01/31/2025 1:27 PM us Donovan Cheung MD ORDERABLES Final Resul t * (ABNORMAL) URINALYSIS REFLEX TO MICROSCOPIC NO CULTURE (01/31/2025 9:38 AM PHARMACY SALES REPRESENTATIVE) Color UA Yellow Yellow, Straw 01/31/2025 9:48 AM PHARMACY SALES REPRESENTATIVE [facility] Clarity UA Clear Clear 01/31/2025 9:48 AM PHARMACY SALES REPRESENTATIVE [facility] Glucose UA Normal Normal 01/31/2025 9:48 AM PHARMACY SALES REPRESENTATIVE [facility] Bilirubin UA Negative Negative 01/31/2025 9:48 AM PHARMACY SALES REPRESENTATIVE [facility] Ketone UA 4+(A) Negative 01/31/2025 9:48 AM PHARMACY SALES REPRESENTATIVE [facility] Specific [place] UA 1.028 1.005 - 1.030 01/31/2025 9:48 AM PHARMACY SALES REPRESENTATIVE [facility] Blood UA 2+(A) Negative 01/31/2025 9:48 AM PHARMACY SALES REPRESENTATIVE [facility] pH UA 5.5 5.0 - 8.0 01/31/2025 9:48 AM PHARMACY SALES REPRESENTATIVE [facility] Protein UA 1+(A) Negative 01/31/2025 9:48 AM PHARMACY SALES REPRESENTATIVE [facility] Urobilinogen UA Normal Normal mg/dL 025 9:48 AM PHARMACY SALES REPRESENTATIVE [facility] Nitrite UA Negative Negative 01/31/2025 9:48 AM PHARMACY SALES REPRESENTATIVE [facility] Leukocyte Esterase UA Negative Negative 01/31/2025 9:48 AM PHARMACY SALES REPRESENTATIVE [facility] RBC UA 6-10(A) 0 - 5 # /hpf 01/31/2025 9:48 AM PHARMACY SALES REPRESENTATIVE [facility] WBC UA 0-5 0 - 5 # /hpf 01/31/2025 9:48 AM PHARMACY SALES REPRESENTATIVE [facility] Bacteria UA None Seen None Seen 01/31/2025 9:48 AM PHARMACY SALES REPRESENTATIVE [facility] Squamous Epithelial Cells 0-2 0 - 5 /hpf 01/31/2025 9:48 AM [facility] Mucus UA 1+ /LPF 01/31/2025 9:48 AM [facility] Urine URINE SPECIMEN OBTAINED BY CLEAN CATCH PROCEDURE / Unknown Collection / Unknown 01/31/2025 9:38 AM PHARMACY SALES REPRESENTATIVE 01/31/2025 9:43 AM PHARMACY SALES REPRESENTATIVE Donovan Cheung MD LAB - URINALYSIS ORDERABLES Final Result [facility] [address] [id number] * HCG BETA BLOOD QUANTITATIVE (01/31/2025 9:37 AM PHARMACY SALES REPRESENTATIVE) hCG Quantitative <2.42 mIU/mL 02/01/20 10:58 AM [facility] Blood BLOOD SPECIMEN / Unknown Venipuncture / Unknown 01/31/2025 9:37 AM PHARMACY SALES REPRESENTATIVE 01/31/2025 9:43 AM PHARMACY SALES REPRESENTATIVE Narrative [facility] - 01/31/2025 10:58 AM PHARMACY SALES REPRESENTATIVE hCG Reference Range, mIU/mL: Non Females 0-6.0 Perimenopausal Females ages 41-55* 0-7.7 Postmenopausal Females age >55* 0-14 Females, Weeks after Last Menstrual Period 0.2-1 week 5-50 1 - 2 weeks 50-500 2 - 3 weeks 100-5000 3 - 4 weeks 500-10,000 4 - 5 weeks 1000-50,000 5 - 6 weeks 10,000-100,000 6 - 8 weeks 15,000-200,000 2 - 3 months 10,000-100,000 Trophoblastic Disease >100,000 *In higher than expected hCG in females > age 40, a serum FSH >20 IU/L makes unlikely. us Donovan Cheung MD LAB - CHEMISTRY ORDERABLES Final Result [facility] [address] [id number] * COMPREHENSIVE METABOLIC PANEL (01/31/2025 9:37 AM [facility]) Glucose 86 70 - 99 mg/dL 01/31/2025 10:00 AM [facility] Sodium 140 136 - 145 mmol/L 01/31/2025 10:00 AM [facility] Potassium 4.0 3.5 - 5.1 mmol/L 01/31/2025 10:00 AM [facility] Chloride 105 98 - 107 mmol/L 01/31/2025 10:00 AM [facility] CO2 22 22 - 29 mmol/L 01/31/2025 10:00 AM [facility] Calcium 9.1 8.4 - 10.4 mg/dL 01/31/2025 10:00 AM [facility] Anion Gap 13 6 - 16 mmol/L 01/31/2025 10:00 AM [facility] BUN 12 5.3 - 18.7 mg/dL 01/31/2025 10:00 AM [facility] Creatinine 0.76 0.50 - 1.00 mg/dL 01/31/2025 10:00 AM [facility] Alkaline Phosphatase 74 40 - 150 U/L 01/31/2025 10:00 AM [facility] ALT 41 6 - 57 U/L 01/31/2025 10:00 AM [facility] AST 23 10 - 48 U/L 01/31/2025 10:00 AM [facility] Protein Total 7.2 6.4 - 8.3 gm/dL 01/31/2025 10:00 AM [facility] Albumin 4.3 3.1 - 4.5 gm/dL 01/31/2025 10:00 AM [facility] Bilirubin Total 1.1 0.2 - 1.2 mg/dL 01/31/2025 10:00 AM [facility] eGFR by CKD-EPI >90 >=90 mL/min/1.7 3 m2 01/31/2025 10:00 AM [facility] Comment:Estimated Glomerular Filtration Rate (eGFR) calculated using the CKD-EPI Creatinine Equation (2020), per the National Kid[employer] Foundation and [place] [employer]ph[employer] recommendations. Blood BLOOD SPECIMEN / Unknown Venipuncture / Unknown 01/31/2025 9:37 AM PHARMACY SALES REPRESENTATIVE 01/31/2025 9:43 AM PHARMACY SALES REPRESENTATIVE us Donovan Cheung MD LAB - CHEMISTRY ORDERABLES Final Result [facility] [address] [place] [address] * (ABNORMAL) CBC W AUTO DIFFERENTIAL (01/31/2025 9:37 AM PHARMACY SALES REPRESENTATIVE) WBC 12.3(H) 4.0 - 10.7 x10E9/L 01/31/2025 9:45 AM [facility] RBC Count 4.01 3.90 - 5.20 x10E12/L 01/31/2025 9:45 AM [facility] Hemoglobin 11.9 11.9 - 15.8 g/dL 01/31/2025 9:45 AM [facility] Hematocrit 34.7(L) 34.8 - 46.1 % 01/31/2025 9:45 AM [facility] MCV 86.5 80.0 - 98.0 fL 01/31/2025 9:45 AM [facility] MCH 29.7 26.7 - 33.6 pg 01/31/2025 9:45 AM [facility] MCHC 34.3 31.7 - 36.3 g/dL 01/31/2025 9:45 AM [facility] RDW-CV 11.4 11.3 - 14.8 % 01/31/2025 9:45 AM [facility] Platelet Count 164 150 - 420 x10E9/L 01/31/2025 9:45 AM [facility] MPV 8.8 7.8 - 11.4 fL 01/31/2025 9:45 AM [facility] Neutrophil % 84.6(H) 41.0 - 74.0 % 01/31/2025 9:45 AM [facility] Lymphocyte % 7.7(L) 17.0 - 47.0 % 01/31/2025 9:45 AM [facility] Monocyte % 7.2 3.0 - 11.0 % 01/31/2025 9:45 AM [facility] Eosinophil % 0.0 0.0 - 7.0 % 01/31/2025 9:45 AM [facility] Basophil % 0.2 0.0 - 1.6 % 01/31/2025 9:45 AM [facility] Immature Granulocytes % 0.3 0.0 - 1.0 % 01/31/2025 9:45 AM [facility] Neutrophil Absolute 10.41(H) 1.60 - 7.50 x10E9/L 01/31/2025 9:45 AM [facility] Lymphocyte Absolute 0.95(L) 1.00 - 4.40 x10E9/L 01/31/2025 9:45 AM [facility] Monocyte Absolute 0.89 0.15 - 1.00 x10E9/L 01/31/2025 9:45 AM [facility] Eosinophil Absolute 0.00 0.00 - 0.60 x10E9/L 01/31/2025 9:45 AM [facility] Basophil Absolute 0.02 0.00 - 0.13 x10E9/L 01/31/2025 9:45 AM [facility] Blood BLOOD SPECIMEN / Unknown Venipuncture / Unknown 01/31/2025 9:37 AM PHARMACY SALES REPRESENTATIVE 01/31/2025 9:43 AM PHARMACY SALES REPRESENTATIVE us Donovan Cheung MD LAB - HEMATOLOGY ORDERABLES Final Result Performing Organization Address City/State/[facility] Co de Phone Number [facility] [address] [place] [address] documented in this encounter Visit Diagnoses Diagnosis Uterine leiomyoma, unspecified location- Primary LLQ pain Abdominal pain, left lower quadrant documented in this encounter Administered Medications Inactive Administered Medications - up to 3 most recent administrations Medication Order MAR Action Action Date Dose Rate Site 0.9% NaCl injection 0-10 mL 0-10 mL, Intracatheter, ONCE PRN, other, Contrast flush, 1 dose, Starting on 01/31/25 at 1633, Until Sat01/31/25 at 1633, For administration with contrast. $ Given 01/31/2025 4:33 PM PHARMACY SALES REPRESENTATIVE 10 mL 0.9% NaCl injection 1-10 mL 1-10 mL, Intracatheter, PRN, other, peripheral line flush, Starting on 01/31/25 at 0917, Until 01/31/25 at 2010, Flush peripheral IV catheter with 1-10 mL of normal saline before and after medications and prn to clear blood from the line or to verify patency. 0.9% NaCl injection 3 mL 3 mL, Intracatheter, EVERY 8 HOURS, First dose on 01/31/25 at 1000, Until Discontinued, Flush peripheral IV catheter with 3 mL of normal saline every 8 hours. $ Given 01/31/2025 2:48 PM PHARMACY SALES REPRESENTATIVE 3 mL $ Given 01/31/2025 2:47 PM PHARMACY SALES REPRESENTATIVE 3 mL fentaNYL (PF) (Sublimaze) injection 50 mcg 50 mcg, Intravenous, EVERY 30 MIN PRN, moderate pain, severe pain, 3 doses, Starting on 01/31/25 at 0917, Until Sat01/31/25 at 1444, Patient preference for lesser PRN pain meds may be honored when the patient requests a less strong medication, a lower dose, or a less intrusive route of administration when the lesser drug, dose and route have been ordered for the patient. This patient request must be documented in the MAR. If both oral and IV options are ordered for the same pain severity, give oral first unless patient cannot tolerate oral intake. $ Given 01/31/2025 2:44 PM PHARMACY SALES REPRESENTATIVE 50 mcg $ Given 01/31/2025 11:24 AM PHARMACY SALES REPRESENTATIVE 50 mcg $ Given 01/31/2025 9:45 AM PHARMACY SALES REPRESENTATIVE 50 mcg ibuprofen (Motrin) tablet 600 mg 600 mg, Oral, 3 TIMES DAILY, First dose on 01/31/25 at 1800, Until Discontinued, Maximum allowable amount = 3200 mg / 24 hours. Patient preference for lesser PRN pain meds may be honored when the patient requests a less strong medication, a lower dose, or a less intrusive route of administration when the lesser drug, dose and route have been ordered for the patient. This patient request must be documented in the MAR. If both oral and IV options are ordered for the same pain severity, give oral first unless patient cannot tolerate oral intake.Indications:Pain $ Given 01/31/2025 6:10 PM PHARMACY SALES REPRESENTATIVE 600 mg iopamidol (Isovue 370) 76 % contrast Intravenous, CONTRAST ONCE, Starting on 01/31/25 at 1632, Until 01/31/25 at 2009 $ Given - Contrast 01/31/2025 4:33 PM PHARMACY SALES REPRESENTATIVE 85 mL morphine injection 4 mg 4 mg, Intravenous, NOW, 1 dose, On 01/31/25 at 1200, Patient preference for lesser PRN pain meds may be honored when the patient requests a less strong medication, a lower dose, or a less intrusive route of administration when the lesser drug, dose and route have been ordered for the patient. This patient request must be documented in the MAR. If both oral and IV options are ordered for the same pain severity, give oral first unless patient cannot tolerate oral intake. $ Given 01/31/2025 12:06 PM PHARMACY SALES REPRESENTATIVE 4 mg morphine injection 4 mg 4 mg, Intravenous, NOW, 1 dose, On 01/31/25 at 1545, Patient preference for lesser PRN pain meds may be honored when the patient requests a less strong medication, a lower dose, or a less intrusive route of administration when the lesser drug, dose and route have been ordered for the patient. This patient request must be documented in the MAR. If both oral and IV options are ordered for the same pain severity, give oral first unless patient cannot tolerate oral intake. $ Given 01/31/2025 3:56 PM PHARMACY SALES REPRESENTATIVE 4 mg ondansetron (disintegrating) (Zofran ODT) tablet 4 mg 4 mg, Oral, EVERY 6 HOURS PRN, nausea/vomiting, Starting on 01/31/25 at 1758, Until 01/31/25 at 2009, Dissolved orally on tongue $ Given 01/31/2025 6:11 PM PHARMACY SALES REPRESENTATIVE 4 mg oxyCODONE (immediate release) (Roxicodone) tablet 5 mg 5 mg, Oral, EVERY 6 HOURS PRN, moderate pain, Starting on 01/31/25 at 1756, Until 01/31/25 at 2009, Patient preference for lesser PRN pain meds may be honored when the patient requests a less strong medication, a lower dose, or a less intrusive route of administration when the lesser drug, dose and route have been ordered for the patient. This patient request must be documented in the MAR. If both oral and IV options are ordered for the same pain severity, give oral first unless patient cannot tolerate oral intake. $ Given 01/31/2025 6:10 PM PHARMACY SALES REPRESENTATIVE 5 mg documented in this encounter Active and Recently Administered Medications Times are shown in PHARMACY SALES REPRESENTATIVE. Scheduled Medication Order 01/29/2025 01/30/2025 01/31/2025 0.9% NaCl injection 3 mL(Linked Group 1) 3 mL, Intracatheter, EVERY 8 HOURS, First dose on 01/31/25 at 1000, Until Discontinued, Flush peripheral IV catheter with 3 mL of normal saline every 8 hours. 1447 ($ Given - Prov ider: Lynette Johnson RN)1448 ($ Given - Provider: Lynette Johnson RN) ibuprofen (Motrin) tablet 600 mg 600 mg, Oral, 3 TIMES DAILY, First dose on 01/31/25 at 1800, Until Discontinued, Maximum allowable amount = 3200 mg / 24 hours. Patient preference for lesser PRN pain meds may be honored when the patient requests a less strong medication, a lower dose, or a less intrusive route of administration when the lesser drug, dose and route have been ordered for the patient. This patient request must be documented in the MAR. If both oral and IV options are ordered for the same pain severity, give oral first unless patient cannot tolerate oral intake. 1810 ($ Given - Prov ider: Lynette Johnson RN) iopamidol (Isovue 370) 76 % contrast Intravenous, CONTRAST ONCE, Starting on 01/31/25 at 1632, Until 01/31/25 at 2009 1633 ($ Given - Cont rast - Provider: Tati Hills) morphine injection 4 mg (COMPLETED) 4 mg, Intravenous, NOW, 1 dose, On 01/31/25 at 1200, Patient preference for lesser PRN pain meds may be honored when the patient requests a less strong medication, a lower dose, or a less intrusive route of administration when the lesser drug, dose and route have been ordered for the patient. This patient request must be documented in the MAR. If both oral and IV options are ordered for the same pain severity, give oral first unless patient cannot tolerate oral intake. 1206 ($ Given - Prov ider: Lynette Johnson RN) morphine injection 4 mg (COMPLETED) 4 mg, Intravenous, NOW, 1 dose, On 01/31/25 at 1545, Patient preference for lesser PRN pain meds may be honored when the patient requests a less strong medication, a lower dose, or a less intrusive route of administration when the lesser drug, dose and route have been ordered for the patient. This patient request must be documented in the MAR. If both oral and IV options are ordered for the same pain severity, give oral first unless patient cannot tolerate oral intake. 1556 ($ Given - Prov ider: Lynette Johnson RN) PRN Medication Order 01/29/2025 01/30/2025 01/31/2025 0.9% NaCl injection 0-10 mL (COMPLETED) 0-10 mL, Intracatheter, ONCE PRN, other, Contrast flush, 1 dose, Starting on 01/31/25 at 1633, Until 01/31/25 at 1633, For administration with contrast. 1633 ($ Given - Prov ider: Tati Hills) 0.9% NaCl injection 1-10 mL(Linked Group 1) 1-10 mL, Intracatheter, PRN, other, peripheral line flush, Starting on 01/31/25 at 0917, Until 01/31/25 at 2010, Flush peripheral IV catheter with 1-10 mL of normal saline before and after medications and prn to clear blood from the line or to verify patency. fentaNYL (PF) (Sublimaze) injection 50 mcg (COMPLETED) 50 mcg, Intravenous, EVERY 30 MIN PRN, moderate pain, severe pain, 3 doses, Starting on 01/31/25 at 0917, Until 01/31/25 at 1444, Patient preference for lesser PRN pain meds may be honored when the patient requests a less strong medication, a lower dose, or a less intrusive route of administration when the lesser drug, dose and route have been ordered for the patient. This patient request must be documented in the MAR. If both oral and IV options are ordered for the same pain severity, give oral first unless patient cannot tolerate oral intake. 0945 ($ Given - Prov ider: Lynette Johnson RN)1124 ($ Given - Provider: Lynette Johnson RN)1444 ($ Given - Provider: Lynette Johnson RN) ondansetron (disintegrating) (Zofran ODT) tablet 4 mg 4 mg, Oral, EVERY 6 HOURS PRN, nausea/vomiting, Starting on 01/31/25 at 1758, Until 01/31/25 at 2009, Dissolved orally on tongue 181 ($ Given - Prov ider: Lynette Johnson RN) oxyCODONE (immediate release) (Roxicodone) tablet 5 mg 5 mg, Oral, EVERY 6 HOURS PRN, moderate pain, Starting on 01/31/25 at 1756, Until 01/31/25 at 2009, Patient preference for lesser PRN pain meds may be honored when the patient requests a less strong medication, a lower dose, or a less intrusive route of administration when the lesser drug, dose and route have been ordered for the patient. This patient request must be documented in the MAR. If both oral and IV options are ordered for the same pain severity, give oral first unless patient cannot tolerate oral intake. 181 ($ Given - Prov ider: Lynette Johnson RN) Linked Groups Order Group 1: SALINE LOCK, INSERT AND MAINTAIN (CANCELED) Routine, CONTINUOUS, Starting on 01/31/25 at 0930, Until Specified, New collection, Task Completed: Yes And 0.9% NaCl injection 3 mLJump to med 3 mL, Intracatheter, EVERY 8 HOURS, First dose on 01/31/25 at 1000, Until Discontinued, Flush peripheral IV catheter with 3 mL of normal saline every 8 hours. And 0.9% NaCl injection 1-10 mLJump to med 1-10 mL, Intracatheter, PRN, other, peripheral line flush, Starting on 01/31/25 at 0917, Until Sat01/31/25 at 2009, Flush peripheral IV catheter with 1-10 mL of normal saline before and after medications and prn to clear blood from the line or to verify patency. documented in this encounter Care Teams Electrician Yard Relationship Specialty Start Date End Date Kennedy Dejesus - PCP - General 10/05/22 documented as of this encounter
[2025-02-01 13:59] VITALS: BMI 23.1
--- NOTE | 2025-02-01 14:25 | PC.NURSE ---
[facility] has started construction of its new state of the art ER which will open Spring 2026. With this, we anticipate parking may be a challenge for some our surgical patients and families. Parking spaces are limited but are available for all Surgical, obstetrics, and ER patients sharing this lot. If you arrive and find you are having a hard time finding a parking space, please note that we understand the challenges, please drive around the hospital and park near Hospital Entrance 1. When you enter this entrance, you can ask a volunteer to direct or take you back to the surgical waiting area to check in. We appreciate everyone?s understanding of these expected challenges while we build for your future. Report to the Outpatient Waiting Room, entrance under the green pavilion located off [address], at time __1130 on date _02/02/25 . Planned Procedure Time: __1330 .? Time changes happen often and if your time is changed the preop area will call you the afternoon before. - You and your visitor will be asked to self-screen and do not enter if you have any COVID symptoms. Please call surgeon if you need to reschedule. - A mask is optional within the hospital at this time. Patients may have clear liquids (water, carbonated beverages, clear teas, apple juice) until 3 hours prior to surgery with a maximum of 20 ounces. - No food from midnight until time of surgery and no smoking, or chewing tobacco (or any form of nicotine). No chewing gum, candy or mints. Take only the following medications with a SIP of water on the morning of surgery: __OXYCODONE AND/OR TYENOL DO NOT STOP ANY OF YOUR OTHER PRESCRIPTION MEDICATIONS PRIOR TO SURGERY EXCEPT THE FOLLOWING Hold all vitamins and supplements for 3 days per anesthesiologist. Medications to discontinue per physician N/A Date to take last dose___N/A Please no make-up, nail uzbek, hairspray, perfume, deodorant, or body powder the day of surgery.? No jewelry (including any body piercings) or valuables the day of surgery, leave them at home.? Please take a shower or bath the night before, or the morning of, surgery with an antibacterial soap.? Wear comfortable, loose fitting clothing.? - Jewelry must be removed prior to entering the operating room.? Rings and piercings that are not removed may be cut off. - The hospital will not accept responsibility for valuables.? - Please leave all valuables, including medications, at home the day of surgery. If you are going home after surgery, a licensed charter driver must drive you home.? - NO public transportation without another adult if you receive anesthesia. - We recommend that an adult stay with you for 24 hours following discharge. - We also recommend that you do not drive, make important decision, drink alcoholic beverages, or take any drugs that were not prescribed by your health care provider for at least 24 hours after your discharge time. Follow any additional instructions given to you from your surgeon. Telephone instructions given to _NUVIA___and asked if any additional questions and then verbalized understanding. Patient advised to call surgeon office or pre surgery nurse liaison [phone] if any additional questions.
[2025-02-02] VITALS (9 sets, daily range): BP systolic 111–127; BP diastolic 62–87; PULSE 63–93; RESP 10–27; TEMP 36.2–37.3; O2SAT 95–100; BMI 23.2
--- OUTSIDE RECORDS SUMMARY | 2025-02-02 01:29 | XMS_ITS | Encounter Summary ---
Author Organization [facility] Address [address] [place] [address] Care Team Providers Care Well Drill Operator Cable Tool Name Role Phone Pcp, Kennedy Solares Im-Fm Primary Care Provider Unavailable Encounter Details Date Type Department Care Team (Late st Contact Info) Description 06/26/2023 Lab Requisition [facility] - DermPath Lab [address] [place] [address] Radha Baxter MD [address] [place], [place] [id number] Neoplasm of uncertain behavior of skin Social [...] on file Legal Sex Female 5:36 AM EDGE DYER Gender Identity Not on file Sexual Orientation Not on file documented as of this encounter Plan of Treatment Not on file documented as of this encounter Procedures Procedure Name Priority Date/Time Associated Diagnosis Comments DERMATOPATHOLOGY Routine 06/26/2023 12:0 0 AM CDT Neoplasm of uncertain behavior of skin documented in this encounter Results * DERMATOPATHOLOGY (06/26/2023 12:00 AM CDT) Case Report Dermatopathology Report Case: [id number] Authorizing Provider: Radha Baxter MD Collected: 06/26/2023 12:00 AM Ordering Location: [facility] - Received: 06/28/2023 07:58 AM DermPath [...] characteristic determined by the Dermatopathology Laboratory at [facility], directed by Dr. Paige Dobbs. These tests need not be, and therefore are not, approved by the [place] Food and Drug Administration. The tests are used for clinical purposes. Billing Codes Specimen Charges Stain Charges 27070 1 [id number] [id number] [id number] 1 1 1 1 4 3:28 PM CDT DERMATOPATHOLOGY LABORATORY Embedded Images 4 3:28 PM CDT DERMATOPATHOLOGY LABORATORY Pathology/Cytolog y TISSUE SPECIMEN FROM SKIN / Unknown 06/26/2023 06/28/2023 7:58 AM CDT Radha Baxter MD LAB - PATHOLOGY/CYTOLOGY ORDERAB LES Final Result DERMATOPATHOLOGY LABORATORY [facility] - Department of Dermatology [facility] Medicine [address] [place] [address], [address] [phone] documented in this encounter Visit Diagnoses Diagnosis Neoplasm of uncertain behavior of skin documented in this encounter Care Teams Well Drill Operator Cable Tool Relationship Specialty Start Date End Date PcpKennedy-Fm PCP - General 10/05/22 documented as of this encounter
--- OUTSIDE RECORDS SUMMARY | 2025-02-02 01:29 | XMS_ITS | Encounter Summary ---
Author Organization [facility] Address [address] [place] [address] Care Team Providers Care Ward Clerk Name Role Phone PcpKennedy Im-Fm Primary Care Provider Unavailable Reason for Visit * Reason Onset Date Comments Reschedule Appointment 11/12/2024 PT schedu led for 4 MFM related appts on 11/17/24, in need of kathi. all appts. Pls call to assist. 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
--- OUTSIDE RECORDS SUMMARY | 2025-02-02 01:29 | XMS_ITS | Clinical Summary ---
Author Organization [email or web address] Address [address] [place] [address] Care Team Providers Care Insurance Follow Up Specialist Name Role Phone PcpKennedy Im-Fm Primary Care Provider Unavailable Source Comments [email or web address],non-owned Affiliates and Associated Physician Practices is amultiple site organization consisting of ambulatory clinics and hospital sitesin [place], [place], [place] and [place]. This disclosure is being madepursuant to the Care Everywhere program and may not contain all information available regarding this patient. Last updated [email or web address] Allergies No known active allergies Medications * [...] (one) tablet by mouth once daily Active oxyCODONE, immediate release, (Roxicodone) 5 MG tabletIndication s:Uterine leiomyoma, unspecified location Take 1 (one) tablet by mouth every 6 hours as needed for pain 12 tablet Active Active Problems Problem Noted Date Diagnosed [...] Encounters Date Type Department Care Team Description 01/31/2025 9:12 AM SEAFOOD TECHNOLOGY SPECIALIST - 01/31/2025 7:10 PM SEAFOOD TECHNOLOGY SPECIALIST Emergency ER at [address] [address] Donovan Cheung MD Uterine leiomyoma, unspecified location (Primary Dx); LLQ pain Discharge Disposition: Home or Self Care 01/31/2025 Travel 11/27/2024 Telephone [facility]F [facility] [facility] [address] [place] [phone]/NOHELIA Diabetes Focus Follow-up 11/25/2024 Telephone [facility] Maternal & Care [address] [place] [id number] Rebecca Sharma RN Follow-up (Called patient at the request of [facility] office to make patient's growth ultrasound appt in 3 weeks since [place] office is easier for patient. ) 11/17/2024 10:00 AM CDT Office Visit [facility] [employer] [facility] [address] [place] [address]/LD Insulin controlled gestational diabetes mellitus (GDM) in third trimester ([facility]) (Primary Dx) 11/17/2024 9:00 AM CDT visit [facility] - [employer]F [employer] [address] [place] [address] Alberto Albright MD GA: [id number] 11/17/2024 7:27 AM CDT - 11/17/2024 11:59 PM CDT Hospital Encounter [facility] MATERNAL/ EVALUATION UNIT [address] [place] [address]. [address] [place] [address] Tatianna Morales MD Discharge Disposition: Home or Self Care 11/17/2024 7:25 AM CDT - 11/17/2024 7:26 AM CDT Hospital Encounter [facility] MATERNAL/ EVALUATION UNIT [address] [place] [address] [address] [place] [address] Tatianna Morales MD Discharge Disposition: Home or Self Care 11/17/2024 Travel 11/12/2024 Telephone [facility] [employer]F [employer] [facility] [address] [place] [address] Lawson Castillo MD Reschedule Appointment (PT scheduled for 4 MFM related appts on 11/17/24, in need of kathi. all appts. Pls call to assist.) 11/11/2024 Telephone [facility]F [facility] [facility] [address] [place] [phone] Alberto Albright MD Appointment; Care from Last [...] Recorded Patient Health Questionnaire-2 Score 0 05/11/2023 [place] Depression Scale Answer Date Recorded [place] Depression Scale Total 0 11/17/2024 The thought of harming myself has occurred to me . Never 11/17/2024 Education Answer Date Recorded What is the highest level of school you have completed or the highest degree you have received? 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 Not on file Not on file Last Filed Vital Signs Vital Sign Reading Time Taken Comments Blood Pressure 126/86 01/31/2025 7:01 PM SEAFOOD TECHNOLOGY SPECIALIST Pulse 101 01/31/2025 7:00 PM SEAFOOD TECHNOLOGY SPECIALIST Temperature 37.2 C (99 F) 01/31/2025 9:10 AM SEAFOOD TECHNOLOGY SPECIALIST Respiratory Rate 18 01/31/2025 9:10 AM SEAFOOD TECHNOLOGY SPECIALIST Oxygen Saturation 94% 01/31/2025 7:00 PM SEAFOOD TECHNOLOGY SPECIALIST Inhaled Oxygen Concentration - - Weight 62.6 kg (138 lb) 01/31/2025 9:17 AM SEAFOOD TECHNOLOGY SPECIALIST Height 165.1 cm (5' 5) 01/31/2025 9:17 AM SEAFOOD TECHNOLOGY SPECIALIST Body Mass Index 22.96 01/31/2025 9:17 AM SEAFOOD TECHNOLOGY SPECIALIST Plan of Treatment Health Maintenance Due Date Last Done Comments HIV SCREENING 2008 HEPATITIS C SCREENING 11/04/2011 Cervical Cancer Screening 07/02/2020 PAP SMEAR 07/02/2020 07/02/2017 (Done Outside Per Patient) DTAP/TDAP/TD VACCINES (8 - Td or Tdap) 04/26/2021 04/26/2011, 12/07/2005, 07/27/1998, Additional history exists PAP with HPV 11/09/2023 DEPRESSION SCREENING 03/11/2024 05/11/2023, 03/29/19 OB-ONE HOUR GLUCOSE 09/15/2024 OB-RHOGAM INJECTION 09/29/2024 COVID-19 VACCINE ( season) 2024 04/21/2021, 06/30/2020, 06/02/2020 INFLUENZA VACCINE (#1) 2024 12/16/2020, 2019 OB-GROUP B STREP SCREEN 11/17/2024 ZOSTER VACCINE (1 of 2) 11/09/2043 HIB VACCINE Completed 07/27/1998, 10/1994, 05/16/1994, Additional history exists HPV VACCINE Completed 06/24/2007, 02/08, 12/05/2006 MENINGOCOCCAL GROUPS A/C/Y/W VACCINE Aged Out 10/23/2007 No longer eligible based on patient's age to complete this topic HEPATITIS B VACCINE Completed 09/19/2017, 08/16/1994, 01/18/1994, Additional history exists OB-TDAP CURRENT Completed 09/25/2024, MENINGOCOCCAL (Group B) VACCINE SHARED DECISION-MAKING Aged [...] PELVIS W CONTRAST STAT 01/31/2025 4:43 PM SEAFOOD TECHNOLOGY SPECIALIST LLQ pain US PELVIS W TRANSVAG W DOP NON OB STAT 01/31/2025 12:58 PM SEAFOOD TECHNOLOGY SPECIALIST LLQ pain URINALYSIS REFLEX TO MICROSCOPIC NO CULTURE STAT 01/31/2025 9:38 AM SEAFOOD TECHNOLOGY SPECIALIST HCG BETA BLOOD QUANTITATIVE STAT 01/31/2025 9:37 AM SEAFOOD TECHNOLOGY SPECIALIST COMPREHENSIVE METABOLIC PANEL STAT 01/31/2025 9:37 AM SEAFOOD TECHNOLOGY SPECIALIST CBC W AUTO DIFFERENTIAL STAT 01/31/2025 9:37 AM SEAFOOD TECHNOLOGY SPECIALIST URINALYSIS - POINT OF CARE (AMB) [facility] Routine 11/17/2024 10:44 AM CDT High-risk , third trimester (HCC) HEMOGLOBIN A1C - POINT OF CARE (AMB) [facility] Routine 11/17/2024 9:50 AM CDT Insulin controlled gestational diabetes mellitus (GDM) in third trimester (HCC) SONOGRAM - COMPLETE Routine 11/17/2024 8 :03 AM CDT from Last 3 Months Results * CT Abdomen Pelvis W Contrast (01/31/2025 4:43 PM SEAFOOD TECHNOLOGY SPECIALIST) Anatomical Region Laterality Modality Abdomen, Pelvis Computed Tomogra phy 01/31/2025 4:56 PM SEAFOOD TECHNOLOGY SPECIALIST Impressions 01/31/2025 5:05 PM SEAFOOD TECHNOLOGY SPECIALIST IMPRESSION: 1. 13 cm pelvic masslike density [...] 01/31/2025 5:05 PM Narrative 01/31/2025 5:05 PM SEAFOOD TECHNOLOGY SPECIALIST PROCEDURE: CT ABDOMEN PELVIS W CONTRAST DATE/TIME [...] x 7.2 x 7.8 cm. Internal density [id number] HU. It is not entirely clear if [...] W Dop Non Ob (01/31/2025 12:58 PM SEAFOOD TECHNOLOGY SPECIALIST) Anatomical Region Laterality Modality Pelvis Ultrasound 01/31/2025 1:13 PM SEAFOOD TECHNOLOGY SPECIALIST Impressions 01/31/2025 1:27 PM SEAFOOD TECHNOLOGY SPECIALIST IMPRESSION: 1. Normal uterus and right ovary. 2. 6 cm left pelvic mass abutting the uterus. Uncertain if this arises from the adnexa or is perhaps a pedunculated fibroid. The left ovary is not clearly identified > Interpreting Provider: James Chandler MD on 01/31/2025 1:27 PM Narrative 01/31/2025 1:27 PM SEAFOOD TECHNOLOGY SPECIALIST PROCEDURE: US PELVIS W TRANSVAG W DOP NON OB DATE/TIME OF EXAM: 01/31/2025 12:58 PM CLINICAL INFORMATION: None relevant/not provided if blank. Indication: R10.32: LLQ pain Additional History: 3 days left lower quadrant pain radiating to lower back. 7 weeks post section. COMPARISON: Report only obstetrical ultrasound from 11/17/2024. Also report conclusions from [facility] CT and ultrasound from January 29. TECHNIQUE: Real time transabdominal and transvaginal pelvic ultrasound was performed by the welding machine operator helper arc with DICOM image capture. Grayscale images were [...] obstetrical ultrasound from 11/17/2024. Also reportconclusions from [facility] CT and ultrasound from January 29. TECHNIQUE: Real time transabdominal and transvaginal pelvic ultrasound wasperformed by the welding machine operator helper arc with DICOM image capture. Grayscale images were [...] 01/31/2025 1:27 PM us Donovan Cheung MD US ORDERABLES Final Resul t * (ABNORMAL) URINALYSIS REFLEX TO MICROSCOPIC NO CULTURE (01/31/2025 9:38 AM SEAFOOD TECHNOLOGY SPECIALIST) Color UA Yellow Yellow, Straw 01/31/2025 9:48 AM SEAFOOD TECHNOLOGY SPECIALIST [facility] Clarity UA Clear Clear 01/31/2025 9:48 AM SEAFOOD TECHNOLOGY SPECIALIST [facility] Glucose UA Normal Normal 01/31/2025 9:48 AM SEAFOOD TECHNOLOGY SPECIALIST [facility] Bilirubin UA Negative Negative 01/31/2025 9:48 AM SEAFOOD TECHNOLOGY SPECIALIST [facility] Ketone UA 4+(A) Negative 01/31/2025 9:48 AM SEAFOOD TECHNOLOGY SPECIALIST [facility] Specific Aulander UA 1.028 1.005 - 1.030 01/31/2025 9:48 AM SEAFOOD TECHNOLOGY SPECIALIST [facility] Blood UA 2+(A) Negative 01/31/2025 9:48 AM SEAFOOD TECHNOLOGY SPECIALIST [facility] pH UA 5.5 5.0 - 8.0 01/31/2025 9:[address] [facility] Protein UA 1+(A) Negative 01/31/2025 9:48 AM SEAFOOD TECHNOLOGY SPECIALIST [facility] Urobilinogen UA Normal Normal mg/dL 025 9:48 AM SEAFOOD TECHNOLOGY SPECIALIST [facility] Nitrite UA Negative Negative 01/31/2025 9:48 AM SEAFOOD TECHNOLOGY SPECIALIST [facility] Leukocyte Esterase UA Negative Negative 01/31/2025 9:48 AM SEAFOOD TECHNOLOGY SPECIALIST [facility] RBC UA 6-10(A) 0 - 5 # /hpf 01/31/2025 9:48 AM SEAFOOD TECHNOLOGY SPECIALIST [facility] WBC UA 0-5 0 - 5 # /hpf 01/31/2025 9:[address] [facility] Bacteria UA None Seen None Seen 01/31/2025 9:[address] [facility] Squamous Epithelial Cells 0-2 0 - 5 /hpf 01/31/2025 9:[address] [facility] Mucus UA 1+ /LPF 01/31/2025 9:[address] [facility] Urine URINE SPECIMEN OBTAINED BY CLEAN CATCH PROCEDURE / Unknown Collection / Unknown 01/31/2025 9:38 AM SEAFOOD TECHNOLOGY SPECIALIST 01/31/2025 9:43 AM SEAFOOD TECHNOLOGY SPECIALIST us Donovan Cheung MD LAB - URINALYSIS ORDERABLES Final Result Performing Organization Address City/State/[facility] Co de Phone Number [facility] [address] [place] [address] * (ABNORMAL) CBC W AUTO DIFFERENTIAL (01/31/2025 9:37 AM SEAFOOD TECHNOLOGY SPECIALIST) WBC 12.3(H) 4.0 - 10.7 x10E9/L 01/31/2025 9:[address] [facility] RBC Count 4.01 3.90 - 5.20 x10E12/L 01/31/2025 9:[address] [facility] Hemoglobin 11.9 11.9 - 15.8 g/dL 01/31/2025 9:[address] [facility] Hematocrit 34.7(L) 34.8 - 46.1 % 01/31/2025 9:[address] [facility] MCV 86.5 80.0 - 98.0 fL 01/31/2025 9:[address] [facility] MCH 29.7 26.7 - 33.6 pg 01/31/2025 9:[address] [facility] MCHC 34.3 31.7 - 36.3 g/dL 01/31/2025 9:[address] [facility] RDW-CV 11.4 11.3 - 14.8 % 01/31/2025 9:[address] [facility] Platelet Count 164 150 - 420 x10E9/L 01/31/2025 9:[address] [facility] MPV 8.8 7.8 - 11.4 fL 01/31/2025 9:[address] [facility] Neutrophil % 84.6(H) 41.0 - 74.0 % 01/31/2025 9:[address] [facility] Lymphocyte % 7.7(L) 17.0 - 47.0 % 01/31/2025 9:[address] [facility] Monocyte % 7.2 3.0 - 11.0 % 01/31/2025 9:[address] [facility] Eosinophil % 0.0 0.0 - 7.0 % 01/31/2025 9:[address] [facility] Basophil % 0.2 0.0 - 1.6 % 01/31/2025 9:[address] [facility] Immature Granulocytes % 0.3 0.0 - 1.0 % 01/31/2025 9:[address] [facility] Neutrophil Absolute 10.41(H) 1.60 - 7.50 x10E9/L 01/31/2025 9:[address] [facility] Lymphocyte Absolute 0.95(L) 1.00 - 4.40 x10E9/L 01/31/2025 9:[address] [facility] Monocyte Absolute 0.89 0.15 - 1.00 x10E9/L 01/31/2025 9:[address] [facility] Eosinophil Absolute 0.00 0.00 - 0.60 x10E9/L 01/31/2025 9:[address] [facility] Basophil Absolute 0.02 0.00 - 0.13 x10E9/L 01/31/2025 9:[address] [facility] Blood BLOOD SPECIMEN / Unknown Venipuncture / Unknown 01/31/2025 9:37 AM SEAFOOD TECHNOLOGY SPECIALIST 01/31/2025 9:43 AM [facility] us Donovan Cheung MD LAB - HEMATOLOGY ORDERABLES Final Result [facility] [address] [place] [address] * COMPREHENSIVE METABOLIC PANEL (01/31/2025 9:37 AM [facility]) Glucose 86 70 - 99 mg/dL 01/31/2025 10:[address] [facility] Sodium 140 136 - 145 mmol/L 01/31/2025 10:[address] [facility] Potassium 4.0 3.5 - 5.1 mmol/L 01/31/2025 10:[address] [facility] Chloride 105 98 - 107 mmol/L 01/31/2025 10:[address] [facility] CO2 22 22 - 29 mmol/L 01/31/2025 10:[address] [facility] Calcium 9.1 8.4 - 10.4 mg/dL 01/31/2025 10:[address] [facility] Anion Gap 13 6 - 16 mmol/L 01/31/2025 10:[address] [facility] BUN 12 5.3 - 18.7 mg/dL 01/31/2025 10:[address] [facility] Creatinine 0.76 0.50 - 1.00 mg/dL 01/31/2025 10:[address] [facility] Alkaline Phosphatase 74 40 - 150 U/L 01/31/2025 10:[address] [facility] ALT 41 6 - 57 U/L 01/31/2025 10:[address] [facility] AST 23 10 - 48 U/L 01/31/2025 10:[address] [facility] Protein Total 7.2 6.4 - 8.3 gm/dL 01/31/2025 10:[address] [facility] Albumin 4.3 3.1 - 4.5 gm/dL 01/31/2025 10:[address] [facility] Bilirubin Total 1.1 0.2 - 1.2 mg/dL 01/31/2025 10:[address] [facility] eGFR by CKD-EPI >90 >=90 mL/min/1.7 3 m2 01/31/2025 10:[address] [facility] Comment:Estimated Glomerular Filtration Rate (eGFR) calculated using the CKD-EPI Creatinine Equation (2020), per the National Kidney Foundation and [place] [employer] Neph[employer] recommendations. Blood BLOOD SPECIMEN / Unknown Venipuncture / Unknown 01/31/2025 9:37 AM SEAFOOD TECHNOLOGY SPECIALIST 01/31/2025 9:43 AM SEAFOOD TECHNOLOGY SPECIALIST Donovan Cheung MD LAB - CHEMISTRY ORDERABLES Final Result Performing Organization Address City/[facility] Co ky Phone Number [facility] [address] [place] [address] * HCG BETA BLOOD QUANTITATIVE (01/31/2025 9:37 AM SEAFOOD TECHNOLOGY SPECIALIST) hCG Quantitative <2.42 mIU/mL 02/01/20 10:[address] [facility] Blood BLOOD SPECIMEN / Unknown Venipuncture / Unknown 01/31/2025 9:37 AM SEAFOOD TECHNOLOGY SPECIALIST 01/31/2025 9:43 AM SEAFOOD TECHNOLOGY SPECIALIST Narrative [facility] - 01/31/2025 10:58 AM SEAFOOD TECHNOLOGY SPECIALIST hCG Reference Range, mIU/mL: Non Females 0-6.0 [...] a serum FSH >20 IU/L makes unlikely. Donovan Cheung MD LAB - CHEMISTRY ORDERABLES Final Result Performing Organization Address City/State/[facility] Co de Phone Number [facility] [address] [place] [address] * URINALYSIS - POINT OF CARE (AMB) U (11/17/2024 10:44 AM CDT) Specific Aulander UA 1.[address] [facility] [address] pH [...] POINT OF CARE OR DERABLES Final Result Performing Organization Address City/[facility]/ZIP Co de Phone Number [facility] [address] [place] [address], [facility] [phone] * HEMOGLOBIN A1C - POINT OF CARE (AMB) U (11/17/2024 9:50 AM CDT) Hemoglobin A1c POCT 5.2 % [facility] [address] BLOOD SPECIMEN / Unknown 11/17/2024 9:50 AM CDT us Alberto Albright MD LAB - POINT OF CARE OR DERABLES Final Result [facility] [address] [place] [address], [facility] [phone] * Sonogram - Complete (11/17/2024 8:03 AM CDT) Linked Results Indication ======== Gestational diabetes mellitus in , unspecified control anatomy evaluation Suspected excessive growth Family history of Down syndrome History ====== OB History 3. Para 0 [id number] Lab Tests Test Date Result NIPT Low [...] 7 lb 8 oz EFW by Hadlock ([id number]) Head / Face / Neck Biometry: Nasal [...] Heart / Thorax 4-chamber view. LVOT view. 3-vsgcun-hjhvakb view. Aortic arch view. Ductal arch view. [...] as otherwise at the discretion of the [facility] physician seeing the patient today for an office visit to follow today's ultrasound. Reassess growth in 3 weeks. Coding ====== Diagnoses Z84.89: Family history of other specified conditions Z36.3: Encounter for screening for malformations Z82.79: Family history of other congenital malformations, deformations and chromosomal abnormalities O36.63X0: Maternal care for excessive growth O24.419: Gestational diabetes mellitus in , unspecified control Procedures 52423: US Preg Uterus Detailed 53077: Biophysical Profile W NST Tidy Books PACS Anatomical Region Laterality Modality Other 11/17/2024 8:0 3 AM CDT Anushka Bains MD [facility] ORDERABLES Edited Result - Final from Last 3 Months Insurance [facility] SELF PAY NO INSURANCE Member Subscriber Plan / Payer (Ef fective for All Dates) Name:Nuvia Armenta R Member ID:Not on file Relation to Subscriber:Not on file Name:NUVIA WHITE Subscriber ID:Not on file (Home) Address: [address] [place] [id number] Payer ID:Not on file Group ID:Not on file Type:Self Pay Address: [place], [place] [facility] Member Subscriber Plan / Payer (Ef fective 2022-Present) Name:Nuvia Armenta Relation to Subscriber:Self Name:Nuvia Armenta Payer ID:[id number] ([facility]) Type:HMO Address: [address] SELF PAY NO INSURANCE Care Teams Insurance Follow Up Specialist Relationship Specialty Start Date End Date Kennedy Dejesus-Fm PCP - General 10/05/22
--- OUTSIDE RECORDS SUMMARY | 2025-02-02 01:29 | XMS_ITS | Clinical Summary ---
Author Organization [facility] Address [address] [place] [address] Care Team Providers Care Upward Bound Director Name Role Phone No, Physician Primary Care Provider [phone] Anushka Bains MD Unavailable [phone] Allergies No known active allergies Medications No known medications Active Problems Problem Noted Date Diagnosed Date Gestational diabetes mellitus (GDM) in [facility] 11/16/2024 Supervision of high-risk , [facility] 11/16/2024 Overview (11/18/2024): [] OB consult only, [x] Co-management vs. [] Full M Care; [] Red Team [] Blue Team Referring Provider: Anushka Bains [phone] [] or Medicare Insurance [x] Dating Criteria: [...] [] MOC: [] Method of feeding: [] Belt Brander (specifically which provider): [] PP Depression Discussed: [] PP visits scheduled: Vaccines [] Flu Shot (Nov-Feb): [] COVID vaccine: [] Tdap (27-36wks): [] RSV vaccine (32-36wks): [] PP HPV vaccine counseling (<=26 yo): Comments Yes Encounters Date Type Department Care Team Description 11/19/2024 Telephone [facility] Medicine Obstetrics and Gynecology [facility] [place] [address] Krystal Paez 11/12/2024 Telephone [facility] Medicine Maternal- Medicine [address] [facility] [address] [place] [address] Radha Quan CMA Scheduling US/OBC [...] on file Legal Sex Female 11:39 PM CLINICAL EDUCATION ACADEMIC COORDINATOR Gender Identity Not on file Sexual Orientation [...] Estimated Date of Delivery 11/16/2024 - Present (02/02/2025) Unknown Dating Summary Based On [place] [...] tab dated 02/17/24. [facility] records are in [facility]. Most recent visit was 05/04/24. Last Filed Vital Signs Vital Sign Reading Time Taken Comments Blood Pressure 127/78 05/04/2024 12:34 PM CLINICAL EDUCATION ACADEMIC COORDINATOR Pulse 82 05/04/2024 12:34 PM CLINICAL EDUCATION ACADEMIC COORDINATOR Temperature - - Respiratory Rate - - Oxygen Saturation 98% 07/25/2023 11: 06 AM CDT Inhaled Oxygen Concentration - - Weight 65.7 kg (144 lb 12.8 oz) 025 12:34 PM CLINICAL EDUCATION ACADEMIC COORDINATOR Height 167.6 cm (5' 6) 05/04/2024 12:3 4 PM CLINICAL EDUCATION ACADEMIC COORDINATOR Body Mass Index 23.37 05/04/2024 12:34 PM CLINICAL EDUCATION ACADEMIC COORDINATOR Plan of Treatment Health Maintenance Due Date [...] patient's age to complete this topic Insurance [facility]PPO Address: [address] [address] [facility] H[facility]/PPO Address: [facility] [address] [phone] Care Teams Upward Bound Director Relationship Specialty Start Date End Date No, Physician PCP - General 07/09/23 Anushka Bains MD [address] [place] [address] Obstetrics and Gynecology 02/10/24
--- NOTE | 2025-02-02 10:51 | PM.IMHP ---
H&P: HPI History of Present Illness Date/Time: 02/02/25 10:51 Chief Complaint: Pelvic pain pelvic mass Narrative: 29 year who presents with pelvic pain pelvic mass. Patient is 8 weeks from delivery. She states that last she developed acute onset pelvic pain. Patient presented to the emergency room. Abdominal CT showed a 10 cm mass posterior to the uterus suggestive of possible fibroid. Patient was discharged home. She states her pain worsened and she was sent to a different emergency room the next night. She again had imaging with consistent findings. There was some discrepancy in the size of the mass. Patient states her pain was manageable over the weekend. She prevents for surgical management. Review of Systems Cardiovascular: Cardiovascular: Denies chest pain, Denies leg edema, Denies palpitations, Denies dyspnea and Denies dyspnea on exertion Respiratory: Respiratory: Denies cough, Denies dyspnea and Denies dyspnea on exertion Gastrointestinal: Gastrointestinal: Denies abdominal pain, Denies constipation, Denies diarrhea, Denies nausea and Denies vomiting Genitourinary: Genitourinary: Denies hematuria, Denies urinary frequency, Denies dysuria, Denies pelvic pain, Denies urinary incontinence and Denies vaginal discharge Neurologic: Reports system reviewed and no additional complaints, except as documented Psychiatric: Psychiatric: Reports no additional psychiatric complaints Endocrine: Endocrine: Denies palpitations PMFSH Past Medical History Medical History Overweight (BMI 25.0-29.9) and not yet delivered Gestational diabetes mellitus Abnormal glucose tolerance in Mar 30 2021 Surgical History Surgical History H/O dilation and curettage suction d&c 01/17/2024 History of surgery on arm History of gynecological procedure Nexplanon insertion removed 9 months later Family History Family History Grandparent Pancreatic cancer maternal Grandmother and maternal grandfather Father Hypertension Mother Diabetes mellitus Depression Social History Social History Smoking status: Never smoker Second hand tobacco smoke exposure: No Alcohol intake: former Alcohol use details: socially 15 per month Substance use: never Substance use type: does not use Do You Feel Safe in your Home?: Yes Lack of Transportation: No Lack of Food: Never True Current Housing: I Have Housing Concerned About Future Housing: No Difficulty Paying Gas/Electric Bills: No Difficulty Paying for Meds: No Currently Unemployed: No Education: Master's Degree or Higher Difficulty w/ Childcare or Family Care: No Living arrangements: with family Additional living arrangements comments: 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 Gender identity (if verbalized by the patient): Female Sexual Orientation (if Verbalized by the Patient): Straight or Heterosexual Spiritual care concerns: No Meds Home Medications and Allergies Home Medications ?Medication ?Instructions ?Recorded ?Confirmed ?Type vits no.126-ferrous fum 1 tablet PO DAILY 01/15/24 02/01/25 History 28 mg iron-folic acid 800 mcg tablet (Classic ) psyllium husk 0.4 gram capsule 0.4 g PO DAILY PRN constipation 09/03/24 02/01/25 History (Metamucil) acetaminophen 500 mg tablet 1,000 mg (2 x 500 mg) PO Q6HR #60 12/13/24 02/01/25 Rx tabs docusate sodium 100 mg capsule 100 mg PO BID #90 caps 12/13/24 02/01/25 Rx ibuprofen 600 mg tablet 600 mg PO Q6HR #40 tabs 12/13/24 02/01/25 Rx hydrocodone 5 mg-acetaminophen 325 1 tablet PO Q6H #20 tabs 01/29/25 02/01/25 Rx mg tablet Allergies Allergy/AdvReac Type Severity Reaction Status Date / Time No Known Allergies Allergy Verified 02/01/25 14:15 Exam Const: General: no acute distress Eyes: EOM: EOMs intact bilaterally Neck: Neck: supple Thyroid: thyroid normal Chest: Breast/axilla inspection: normal inspection of the breasts Breast/axilla palpation: normal palpation of the breasts, normal palpation of the axillae and no axillary lymphadenopathy Resp: Effort & Inspection: normal respiratory effort Auscultation: clear to auscultation bilaterally Cardio: Rate: regular rate Rhythm: regular rhythm GI: Inspection: non-distended GI Palp: Yes Soft to palpation, No Tenderness to palpation present (GI) and No Guarding due to palpation present (GI) Auscultation: normal bowel sounds : General: No bladder normal to palpation External Female Exam: normal external appearance Speculum Exam - Vagina: normal vaginal discharge and No vaginal bleeding Speculum Exam - Cervix: nontender Bimanual exam- vagina & uterus: No bladder normal to palpation and No Cervical tenderness present OB/external & speculum: No vaginal bleeding Skin: General skin exam: normal color and no rashes or lesions noted Neuro: Cognition (Neuro): normal cognition Speech: normal speech Extrem: General: normal to inspection and no edema Psych: Mental Status: mental status grossly normal Affect: normal affect Assessment and Plan Assessment and plan (1) Pelvic pain: Code(s): R10.20 - Pelvic and perineal pain unspecified side Status: Acute Assessment and Plan: 29-year-old female presents with pelvic pain Patient is 8 weeks from delivery Developed acute onset pelvic pain last week Patient was evaluated in 2 separate emergency rooms Abdominal CT and pelvic ultrasound showed a 10 cm mass posterior to the uterus Imaging suggestive of possible fibroid No mention of fibroid during imaging in Discussed surgical plan to evaluate mass Will plan for diagnostic laparoscopy If mass is suspected to be a fibroid, will proceed with robotic assisted myomectomy Discussed the possibility for laparotomy Risks, benefits, alternatives reviewed
--- NOTE | 2025-02-02 10:55 | WPDHPUPDATE1 ---
History and Physical Update Update Date/Time: 02/02/25 10:55 History and Physical has been reviewed, including an updated exam of the patient. There are NO changes in the patient's condition. Risks, benefits, and alternatives have been discussed and questions answered. Patient agrees to proceed with procedure.
[2025-02-02] MEDS: LACTATED RINGERS 1,000 ML 30 ML IV CONT (11:20)
--- NOTE | 2025-02-02 11:28 | P.PNAN_ITS ---
Anes - Initial Pre Proc Eval Procedure: Operation Date: 02/02/25 13:30 Proposed Procedures p Robotic Assisted Laparoscopic Adnexal Mass Removal, Possible Open - Uziel Langston MD Date/Time: 02/02/25 11:28 Surgeon: Uziel Langston MD Pre Op Diagnosis: adnexal mass Patient Data Age: 29 Gender: F Height: 1.65 m Weight: 63.3 kg Allergies Allergy/AdvReac Type Severity Reaction Status Date / Time No Known Allergies Allergy Verified 02/01/25 14:15 Home Medications ?Medication ?Instructions ?Recorded ?Confirmed ?Type vits no.126-ferrous fum 1 tablet PO DAILY 09/0102/01/25 History 28 mg iron-folic acid 800 mcg tablet (Classic ) psyllium husk 0.4 gram capsule 0.4 g PO DAILY PRN cons tipation 09/03/24 02/01/25 History (Metamucil) acetaminophen 500 mg tablet 1,000 mg (2 x 500 mg) PO Q 6HR #60 12/13/24 02/02/25 Rx tabs docusate sodium 100 mg capsule 100 mg PO BID #90 caps 12/13/24 02/01/25 Rx ibuprofen 600 mg tablet 600 mg PO Q6HR #40 tabs 08/0202/02/25 Rx hydrocodone 5 mg-acetaminophen 325 1 tablet PO Q6H #20 tabs 01/29/25 02/02/25 Rx mg tablet Patient hx anesthesia problems: none Family hx anesthesia problems: none Results Review: All pre-operative results and documents have been reviewed as part of the pre- operative evaluation. [facility] Past Medical History Medical History Overweight (BMI 25.0-29.9) and not yet delivered Gestational diabetes mellitus Abnormal glucose tolerance in Mar 30 2021 Surgical History Surgical History H/O dilation and curettage suction d&c 01/17/2024 History of surgery on arm History of gynecological procedure Nexplanon insertion removed 9 months later Family History Family History Grandparent Pancreatic cancer maternal Grandmother and maternal grandfather Father Hypertension Mother Diabetes mellitus Depression Social History Social History Smoking status: Never smoker Second hand tobacco smoke exposure: No Alcohol intake: former Alcohol use details: socially 15 per month Substance use: never Substance use type: does not use Do You Feel Safe in your Home?: Yes Lack of Transportation: No Lack of Food: Never True Current Housing: I Have Housing Concerned About Future Housing: No Difficulty Paying Gas/Electric Bills: No Difficulty Paying for Meds: No Currently Unemployed: No Education: Master's Degree or Higher Difficulty w/ Childcare or Family Care: No Living arrangements: with family Additional living arrangements comments: 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 Gender identity (if verbalized by the patient): Female Sexual Orientation (if Verbalized by the Patient): Straight or Heterosexual Spiritual care concerns: No Anes - Eval Final PreProcedure Day of Procedure 02/02/25 11:28 Patient weight: normal Heart: regular rate and rhythm Lungs: clear to auscultation Airway: Mallampati scale class 1 Neurological: alert and oriented Last oral intake: >/= 8 hours ASA classification: I Emergent: no Anesthetic plan: proceed Anesthesia type and monitoring: general ETT and standard monitoring Results Review: All pre-operative results and documents have been reviewed as part of the pre-operative evaluation. Informed Consent: The patient's anesthetic plan and its attendant risks and benefits were discussed with the patient/family/POA. Questions were solicited and answers provided to the satisfaction of the patient/family/POA.
--- NOTE | 2025-02-02 11:50 | WPDANESEPPF ---
Anes - Initial Pre Proc Eval Procedure: Operation Date: 02/02/25 13:30 Proposed Procedures p Robotic Assisted Laparoscopic Adnexal Mass Removal, Possible Open - Uziel Langston MD Date/Time: 02/02/25 11:50 Surgeon: Uziel Langston MD Pre Op Diagnosis: adnexal mass Patient Data Age: 29 Gender: F Height: 1.65 m Weight: 63.3 kg Allergies Allergy/AdvReac Type Severity Reaction Status Date / Time No Known Allergies Allergy Verified 02/01/25 14:15 Home Medications ?Medication ?Instructions ?Recorded ?Confirmed ?Type vits no.126-ferrous fum 1 tablet PO DAILY 01/15/24 02/01/25 History 28 mg iron-folic acid 800 mcg tablet (Classic ) psyllium husk 0.4 gram capsule 0.4 g PO DAILY PRN constipation 09/03/24 02/01/25 History (Metamucil) acetaminophen 500 mg tablet 1,000 mg (2 x 500 mg) PO Q6HR #60 12/13/24 02/02/25 Rx tabs docusate sodium 100 mg capsule 100 mg PO BID #90 caps 12/13/24 02/01/25 Rx ibuprofen 600 mg tablet 600 mg PO Q6HR #40 tabs 12/13/24 02/02/25 Rx hydrocodone 5 mg-acetaminophen 325 1 tablet PO Q6H #20 tabs 01/29/25 02/02/25 Rx mg tablet Patient hx anesthesia problems: none Family hx anesthesia problems: none Results Review: All pre-operative results and documents have been reviewed as part of the pre-operative evaluation. [facility] Past Medical History Medical History Overweight (BMI 25.0-29.9) and not yet delivered Gestational diabetes mellitus Abnormal glucose tolerance in Mar 30 2021 Surgical History Surgical History H/O dilation and curettage suction d&c 01/17/2024 History of surgery on arm History of gynecological procedure Nexplanon insertion removed 9 months later Family History Family History Grandparent Pancreatic cancer maternal Grandmother and maternal grandfather Father Hypertension Mother Diabetes mellitus Depression Social History Social History Smoking status: Never smoker Second hand tobacco smoke exposure: No Alcohol intake: former Alcohol use details: socially 15 per month Substance use: never Substance use type: does not use Do You Feel Safe in your Home?: Yes Lack of Transportation: No Lack of Food: Never True Current Housing: I Have Housing Concerned About Future Housing: No Difficulty Paying Gas/Electric Bills: No Difficulty Paying for Meds: No Currently Unemployed: No Education: Master's Degree or Higher Difficulty w/ Childcare or Family Care: No Living arrangements: with family Additional living arrangements comments: 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 Gender identity (if verbalized by the patient): Female Sexual Orientation (if Verbalized by the Patient): Straight or Heterosexual Spiritual care concerns: No Anes - Eval Final PreProcedure Day of Procedure 02/02/25 11:50 Patient weight: normal Lungs: normal air movement Airway: Mallampati scale class II Neurological: alert and oriented Last oral intake: >/= 8 hours ASA classification: I Emergent: no Anesthetic plan: proceed Anesthesia type and monitoring: general ETT and standard monitoring Results Review: All pre-operative results and documents have been reviewed as part of the pre-operative evaluation. Pt in good health, active, no cp or sob w activity. Full discussion re breast feeding after GA. Informed Consent: The patient's anesthetic plan and its attendant risks and benefits were discussed with the patient/family/POA. Questions were solicited and answers provided to the satisfaction of the patient/family/POA.
[2025-02-02] MEDS: ceFAZolin 2 GM in SODIUM CHLORIDE 0.9% IV 50 ML 100 ML IVPB (12:03)
--- NOTE | 2025-02-02 12:45 | S_PTH ---
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
--- NOTE | 2025-02-02 13:09 | P.OP_ITS ---
Procedure Note - Detailed Date of Procedure 02/02/25 Pre-op Diagnosis Pelvic pain pelvic mass Post-op Diagnosis Same Procedure Performed exploratory laparoscopy laparotomy and removal of pelvic mass Surgeon Uziel Langston MD Anesthesia General Indications pelvic pain pelvic mass on imaging Findings normal appearing uterus. large, necrotic, hemorrhagic appearing mass possibly originating from the left ovary. Torsed around the utero-ovarian ligament x 1 Description of Procedure INDICATIONS: The risks, benefits and alternatives of laparoscopy were discussed with the patient, including but not limited to infection, severe loss of blood, cardiac arrest, , thrombosis, injury to other organs such as bowel, bladder or ureter, fistula, injury to blood vessels, risk of blood transfusion, loss of one or more ovary, and possible need for laparotomy to complete the surgery or any repair. OPERATIVE PROCEDURE: The patient was taken to the operating room where general endotracheal anesthesia was undertaken and found to be adequate. She was then prepped and draped in the dorsal lithotomy position and placed in adjustable stirrups. A pre-operative team brief and a time out were completed. A catheter was placed to drain the bladder. Retractors were placed placed in the vagina and the cervix was identified. An acorn uterine manipulator was placed. A 5 mm skin incision was made in the umbilicus. A 5 mm optical trocar was then placed with direct camera visualization of the abdominal layers during placement. The trocar stylet was removed and the camera was used to verify intra-abdominal placement. CO2 insufflation was then connected and resumed. The pelvis was inspected. The above findings were noted. Based on the size of the lesion, decision was made to proceed with laparotomy. Patient was placed in supine position. Her previous pfannenstiel incision was opened. Incision was carried down to the underlying fascia. The fascia was then incised in the midline and the incision was extended laterally with the Vazquez scissors. The superior aspect of the fascia was then grasped with the Nicolasa clamps, elevated, and the underlying rectus muscles dissected off bluntly and sharply. Attention was then turned to the inferior aspect of this incision which, in a similar fashion, was grasped, tented up with the Nicolasa clamps, and the rectus muscles dissected off both bluntly and sharply. The rectus muscles were then in the midline. The peritoneum was identified and entered bluntly. The peritoneal incision was then extended superiorly and inferiorly with good visualization of the bladder. A ring retractor was placed for better visualization. The pelvic mass was identified. The mass appeared to originate from the left ovary. Attempt to lift the mass out of the pelvis evulsed the mass from the pelvis. The mass appeared to be torsed around the utero-ovarian ligament x1. The left ovary and fallopian tube were noted to have a small area of bleeding likely from were the mass was attached. The bleeding was made hemostatic with Bovie cautery. The pelvis was copiously irrigated. Good hemostasis was noted. The surgical bed was also covered with Hemaderm powder to ensure hemostasis. The posterior aspect of the uterus and the broad ligaments were inspected and the posterior cul-de-sac cleared of fluid and blood clots. The peritoneum was closed using 3-0 vicryl in a running fashion. The fascia was reapproximated with 0-vicryl in a running fashion. The subcutaneous tissue was irrigated and hemostasis achieved with electrocautery. The skin was closed with coleen. A sterile dressing was applied to the wound. The patient tolerated the procedure well. Sponge, lap and needle counts were correct times three. The patient was taken to recovery in stable condition and without antici pated complications. Estimated Blood Loss 20 Drains No Packing No Pathology Yes (ovarian mass) Complications No immediate complications Condition Stable Disposition PACU [facility] Billing Surgery - Charge Forward: Surgery Billing
[2025-02-02] MEDS: LIDO 1%/EPINEPHRINE 1:100,000 50 ML VIAL (13:16)
--- NOTE | 2025-02-02 14:22 | ADMGEN ---
This patient, Xiomara Armenta, was admitted to OB 2nd Floor Room 277-00. Patient/family oriented to hospital policies and general routines including ID bracelet, bed and alarms, visiting hours, pain management, procedures, bathroom and other care routines, personal items, smoking policy, room service/diet, and visiting hours. Information on how to activate the Rapid Response Team has been discussed. Patient/Family are encouraged to report perceived risks to care and to ask questions if they do not understand what they are told or what they should do.
[2025-02-02] MEDS: DEXTROSE 5%/0.45% SOD CHL 1,000 ML 125 ML IV CONT (14:46)
[2025-02-02] MEDS: ACETAMINOPHEN 500 MG TABLET 1000 MG PO ×2 (14:46→20:45)
[2025-02-02] MEDS: KETOROLAC 15 MG/ML VIAL (*BKC) IV PUSH ×2 (14:46→20:45)
[2025-02-02] MEDS: LIDOCAINE 5% PATCH 1 PATCH TRANSDERM (14:47)
[2025-02-02] MEDS: DOCUSATE SODIUM 100 MG CAPSULE PO (16:09)
[2025-02-02] MEDS: SIMETHICONE 80 MG TAB.CHEW PO (16:09)
[2025-02-02] MEDS: oxyCODONE HCL (*CRX) 5 MG TAB IR PO ×2 (16:10→20:10)
[2025-02-02] MEDS: KCL 20 MEQ/D5/0.45% SOD CHL 1,000 ML 125 ML IV CONT (22:50)
[2025-02-03] MEDS: oxyCODONE HCL (*CRX) 5 MG TAB IR PO ×2 (00:02→04:02)
[2025-02-03] MEDS: KETOROLAC 15 MG/ML VIAL (*BKC) IV PUSH (02:45)
[2025-02-03] MEDS: ACETAMINOPHEN 500 MG TABLET 1000 MG PO (02:45)
[2025-02-03 03:57] VITALS: BP 99/59; PULSE 58; RESP 18; TEMP 36.9; O2SAT 97
[2025-02-03 04:51] LABS: Hematocrit 27.8 % (37.0-47.0); Hemoglobin 9.4 g/dL (12.0-15.0); Immature Granulocyte Percent A 0.2 % (0-0.5); Lymphocytes Absolute Auto 1.21 K/mm3 (0.9-3.2); Mean Corpuscular HGB Conc 33.8 g/dl (32-36); Mean Corpuscular Hemoglobin 29.7 pg (26-34); Mean Corpuscular Volume 88.0 fl (80-100); Nucleated Red Blood Cells Absolute Auto 0.000 K/mm3 (0.0-0.012); Nucleated Red Blood Cells Perc 0.0 % (0.0-0.2); Platelet Count Result 210 k/mm3 (150-375); Red Blood Count 3.16 M/mm3 (4.2-5.4); White Blood Count 6.0 K/mm3 (4.5-10.0)
--- NOTE | 2025-02-03 07:26 | PM.DS ---
DS: Admitting Diagnosis Discharge Date 02/03/25 Admitting Diagnosis pelvic pain pelvic mass DS: Discharge Diagnosis Discharge Diagnosis (1) Pelvic pain: Code(s): R10.20 - Pelvic and perineal pain unspecified side Status: Acute (2) S/P ovarian cystectomy: Code(s): Z98.890 - Other specified postprocedural states; Z87.42 - Personal history of other diseases of the female genital tract Status: Acute DS: Summary Hospital Course Hospital Course: 29 yo female who was admitted for diagnostic laparoscopy, open laparotomy for removal of pelvic mass. Her postoperative course was uncomplicated. She was discharged home on POD #1. Status at Discharge Functional status at discharge: independent ambulation Overall status at discharge: patient is back to baseline Time Spent with Patient Time attestation: Total time spent providing and/or coordinating discharge services: Time spent: Less than 30 minutes Exam Const: General: comfortable and no acute distress Resp: Effort & Inspection: normal respiratory effort Auscultation: clear to auscultation bilaterally Cardio: Rate: regular rate GI: Inspection: non-distended GI Palp: Yes Soft to palpation, No Firmness to palpation present (GI), Yes Tenderness to palpation present (GI) (mild tenderness over incision ) and No Guarding due to palpation present (GI) Auscultation: normal bowel sounds Psych: Appearance: grossly normal Mental Status: mental status grossly normal DS: Data Data Completed and Pending Pending studies at discharge: Pending at discharge 02/02/25 12:45 Surgical [PTH] Routine Labs on day of discharge: Labs from last 24 hours 02/03/25 02/02/25 03:18 11:22 WBC 6.0 RBC 3.16 L Hgb 9.4 L D Hct 27.8 L MCV 88.0 MCH 29.7 MCHC 33.8 RDW 11.7 Plt Count 210 MPV 9.4 Immature Gran % (Auto) 0.2 Neut % (Auto) 69.1 Lymph % (Auto) 20.2 Mower % (Auto) 9.5 H Eos % (Auto) 0.5 Baso % (Auto) 0.5 Lymph # (Auto) 1.21 Mower # (Auto) 0.6 Eos # (Auto) 0.0 Baso # (Auto) 0.0 Abs Immat Gran (auto) 0.01 Absolute Neuts (auto) 4.2 Absolute Nucleated RBC 0.000 Nucleated RBC % 0.0 Blood Type A Positive Antibody Screen Negative Discharge Plan Discharge Patient Disposition: Home Patient Language: Kyrgyz Stand Alone Forms: General Discharge Instructions Follow-up/Referrals: Uziel Langston MD [Physician, ONLINE JOURNALIST] - 1 Week Referral Note: staple removal Discharge Medications: New oxycodone-acetaminophen 5-325 mg tablet 1 tablet PO Q6H PRN (Reason: pain) Qty: 28 0RF ibuprofen 600 mg tablet 600 mg PO Q6H PRN (Reason: pain) Qty: 30 0RF Continued psyllium husk [Metamucil] 0.4 gram capsule 0.4 g PO DAILY PRN (Reason: constipation) Classic 28 mg iron- 800 mcg tablet 1 tablet PO DAILY docusate sodium 100 mg Capsule 100 mg PO BID Qty: 90 0RF ibuprofen 600 mg Tablet 600 mg PO Q6HR Qty: 40 0RF acetaminophen 500 mg Tablet 1,000 mg PO Q6HR Qty: 60 0RF hydrocodone-acetaminophen 5-325 mg tablet 1 tablet PO Q6H Qty: 20 0RF
[2025-02-03 08:50] VITALS: BP 116/81; PULSE 64; RESP 18; TEMP 37; O2SAT 100
== END 2025-02-03 09:38 | disposition home or self-care (01) ==
LOC: ANHSURGERY 10:32 → ANHOB2 14:17
PROVIDERS: Visit Provider Student in an Organized Health Care Education/Training Program
PROC: 8E0W4CZ Robotic Assisted Procedure of Trunk Region, Percutaneous Endoscopic Approach (ICD-10-PCS; CPT 49320; principal; 2025-02-02 13:30)
DX: N83.8 Other noninflammatory disorders of ovary, fallopian tube and broad ligament (principal); Z53.31 Laparoscopic surgical procedure converted to open procedure
CPT/HCPCS: 49000; 36415; 85025; 86850; 86900; 86901; 88304; 99199; J0690; A9270; J1100; J1171; J1885; J2004; J2250; J2405; J2704; J3010; J3480; J7030; J7120